=== PATIENT | male | born 1950 | race Caucasian/White ===

== ENCOUNTER 2022-09-01 07:59 | Outpatient (REF) | payer MEDICARE, SELFPAY ==
[2022-09-01 11:21] LABS: MANUAL DIFF FLAG NO
[2022-09-01 11:28] LABS: Basophils Absolute Auto 0.1 X10*3/uL (0.0-0.2); Eosinophils Percent Auto 11.8 % (0-4); Hematocrit 31.5 % (42.0-52.0); Hemoglobin 10.6 g/dl (14.0-18.0); Imm Gran Abs Auto 0.04 X10*3/uL (0.00-0.03); Imm Gran Pct Auto 0.5 % (0.0-0.4); Lymphocytes Absolute Auto 1.7 X10*3/uL (1.2-4.9); Lymphocytes Percent Auto 20.7 % (20-40); Mean Corpuscular HGB Conc 33.7 g/dl (31.0-36.0); Mean Corpuscular Hemoglobin 32.1 pg (27.0-33.0); Mean Corpuscular Volume 95.5 fL (80.0-98.0); Mean Platelet Volume 9.3 fL (9.4-12.4); Monocytes Absolute Auto 0.7 X10*3/uL (0.1-1.2); Monocytes Percent Auto 9.1 % (2-11); Neutrophils Absolute Auto 4.6 x10*3/uL (2.0-8.3); Neutrophils Percent Auto 56.9 % (45-73); Platelet Count 257 X10*3/uL (160-400); Red Cell Distribution Width 12.9 % (11.0-16.0); White Blood Count 8.2 X10*3/uL (4.8-10.8)
[2022-09-01 11:34] LABS: Appearance Urine Clear; Color Urine Yellow; Glucose Urine UA Negative (Negative); Leukocyte Esterase Urine Negative (Negative); Nitrite Urine Negative (Negative); PH 5.5 (5.0-9.0); Specific Gravity - Urine 1.015 (1.005-1.025); UMIC TRIGGER UA YES; Urine Blood Moderate (2+) (Negative); Urine Ketones Negative (Negative); Urine Protein Negative (Neg-Trace)
[2022-09-01 11:38] LABS: Bacteria Urine None Seen (None Seen); Hyaline Casts Urine 0-2 /LPF (0-2); Squamous Epithelial Cell Urine 0-2 /HPF (0-2); WBC Urine 0-5 /HPF (0-5)
[2022-09-01 11:42] LABS: Anion Gap 13 (12-20); Blood Urea Nitrogen 35 mg/dL (9-16); Calcium 9.4 mg/dL (8.4-10.2); Carbon Dioxide 26 mmol/L (22-29); Chloride 101 mmol/L (96-108); Estimated Glomerular Filt Rate 25; Potassium 4.9 mmol/L (3.3-5.1); Sodium 135 mmol/L (135-145); Uric Acid 5.4 mg/dL (3.4-7.0)
[2022-09-01 11:52] LABS: Creatinine Urine 104.54 mg/dL; Microalbum/Creatinine Ratio Ur 8.6 ug/mg cr
[2022-09-01 11:56] LABS: Creatinine Urine 105.47 mg/dL; Total Protein Urine Random 11 mg/dL (<12)
[2022-09-01 12:02] LABS: Vitamin D 25-OH Total 30.1 ng/mL (>30)
[2022-09-01 12:26] LABS: Alanine Aminotransferase 10 U/L (0-40); Alkaline Phosphatase 81 U/L (39-117); Anion Gap 14 (12-20); Aspartate Amino Transferase 12 U/L (5-37); Bilirubin Total 0.3 mg/dL (0.0-1.0); Blood Urea Nitrogen 34 mg/dL (9-16); Calcium 9.3 mg/dL (8.4-10.2); Carbon Dioxide 27 mmol/L (22-29); Chloride 102 mmol/L (96-108); Cholesterol 172 mg/dL; Estimated Glomerular Filt Rate 26; Glucose Fasting 107 mg/dL (60-99); HDL Cholesterol 61 mg/dL; LDL Cholesterol Calculated 96 mg/dl; Potassium 5.4 mmol/L (3.3-5.1); Prostate Specific Antigen Scr 2.36 ng/mL (<0.05-4.0); Sodium 138 mmol/L (135-145); TSH reflex Free T4 4.63 uIU/mL (0.32-4.0); Total Protein 6.8 g/dL (6.5-8.0); Triglycerides 78 mg/dL
[2022-09-01 12:39] LABS: Folate 17.5 ng/mL (> or = 4.0); Vitamin B12 646 pg/mL (200-900)
[2022-09-01 13:31] LABS: Free T4 (Free Thyroxine) 0.91 ng/dL (0.71-1.85)
[2022-09-02 15:13] LABS: Calcium (PTHI) 9.2 mg/dL (8.6-10.3); PTHI 47 pg/mL (16-77)
== END 2022-09-01 08:00 | disposition home or self-care (01) ==
LOC: HO.HMGCLDS 07:59
PROVIDERS: Absent Provider Student in an Organized Health Care Education/Training Program; PCP Family Medicine; Visit Provider Family Medicine
DX: Z00.00 Encounter for general adult medical examination without abnormal findings (principal); Z12.5 Encounter for screening for malignant neoplasm of prostate; I12.9 Hypertensive chronic kidney disease with stage 1 through stage 4 chronic kidney disease, or unspecified chronic kidney disease; N18.30 Chronic kidney disease, stage 3 unspecified
CPT/HCPCS: 36415; 80051; 80053; 80061; 81001; 81003; 82043; 82306; 82310; 82565; 82607; 82746; 83970; 84153; 84156; 84439; 84443; 84520; 84550; 85025

== ENCOUNTER 2022-09-26 12:05 | Outpatient (REF) | payer MEDICARE, SELFPAY ==
--- NOTE | ~2022-09-26 | XR_ITS ---
EXAMINATION: XR CHEST CLINICAL INFORMATION: Nicotine dependence. COMPARISON: None TECHNIQUE: 2 views of the chest were obtained. FINDINGS: Hyperexpanded lungs. No consolidation, edema, or effusion. No pneumothorax. The cardiomediastinal silhouette is within normal limits. No acute osseous abnormality. Partially visualized aortic stent graft in the abdomen. XR/XR chest 2V IMPRESSION: Hyperexpanded lungs with no acute pulmonary finding.
[2022-09-26 14:00] LABS: Urine Cytology See Pathology rpt
[2022-09-26 14:12] LABS: Appearance Urine Clear; Color Urine Yellow; Glucose Urine UA Negative (Negative); Leukocyte Esterase Urine Trace (Negative); Nitrite Urine Negative (Negative); PH 5.5 (5.0-9.0); UMIC TRIGGER UA YES; Urine Blood Moderate (2+) (Negative); Urine Ketones Negative (Negative); Urine Protein Trace mg/dL (Neg-Trace)
[2022-09-26 14:23] LABS: Bacteria Urine None Seen (None Seen); Hyaline Casts Urine 0-2 /LPF (0-2); RBC Urine 0-2 /HPF (0-2); Squamous Epithelial Cell Urine 0-2 /HPF (0-2); WBC Urine 0-5 /HPF (0-5)
== END 2022-09-26 12:06 | disposition home or self-care (01) ==
LOC: HO.HMGCX 12:05
PROVIDERS: Absent Provider Student in an Organized Health Care Education/Training Program; PCP Family Medicine; Visit Provider Family Medicine
DX: R31.29 Other microscopic hematuria (principal); F17.200 Nicotine dependence, unspecified, uncomplicated
CPT/HCPCS: 71046; 81001; 88112

== ENCOUNTER 2022-10-24 11:20 | Outpatient (REF) | payer MEDICARE, SELFPAY ==
[2022-10-24 14:12] LABS: Anion Gap 14 (12-20); Blood Urea Nitrogen 29 mg/dL (9-16); Calcium 9.3 mg/dL (8.4-10.2); Carbon Dioxide 27 mmol/L (22-29); Chloride 102 mmol/L (96-108); Estimated Glomerular Filt Rate 29; Glucose Random 119 mg/dL (60-115); Sodium 138 mmol/L (135-145)
[2022-10-24 14:31] LABS: Free T4 (Free Thyroxine) 0.97 ng/dL (0.71-1.85); Thyroid Stimulating Hormone 3.11 uIU/mL (0.32-4.0)
[2022-10-25 09:03] LABS: Triiodothyronine T3 Total 89 ng/dL (76-181)
== END 2022-10-24 11:21 | disposition home or self-care (01) ==
LOC: HO.HMGCLDS 11:20
PROVIDERS: PCP Family Medicine; Visit Provider Family Medicine
DX: Z00.00 Encounter for general adult medical examination without abnormal findings (principal); E03.9 Hypothyroidism, unspecified; R79.89 Other specified abnormal findings of blood chemistry
CPT/HCPCS: 36415; 80048; 84439; 84443; 84480

== ENCOUNTER 2022-11-04 12:32 | Outpatient (REF) | payer MEDICARE, SELFPAY ==
[2022-11-04 15:05] LABS: Appearance Urine Clear; Color Urine Yellow; Glucose Urine UA Negative (Negative); Leukocyte Esterase Urine Negative (Negative); Nitrite Urine Negative (Negative); UMIC TRIGGER UA YES; Urine Blood Small (1+) (Negative); Urine Ketones Negative (Negative); Urine Protein Negative (Neg-Trace)
[2022-11-04 15:15] LABS: Bacteria Urine None Seen (None Seen); Hyaline Casts Urine 0-2 /LPF (0-2); RBC Urine 0-2 /HPF (0-2); Squamous Epithelial Cell Urine 0-2 /HPF (0-2); WBC Urine 0-5 /HPF (0-5)
== END 2022-11-04 12:33 | disposition home or self-care (01) ==
LOC: HO.LAB 12:32
PROVIDERS: Visit Provider Family Medicine
DX: R31.9 Hematuria, unspecified (principal)
CPT/HCPCS: 81001; 81003; 87086

== ENCOUNTER 2022-11-13 10:27 | Outpatient (REF) | payer MEDICARE, SELFPAY ==
[2022-11-13 16:56] LABS: Urine Cytology See Pathology rpt
== END 2022-11-13 10:28 | disposition home or self-care (01) ==
LOC: HO.LAB 10:27
PROVIDERS: PCP Family Medicine; Visit Provider Nurse Practitioner Family
DX: R31.29 Other microscopic hematuria (principal); R89.6 Abnormal cytological findings in specimens from other organs, systems and tissues
CPT/HCPCS: 88112; 99202

== ENCOUNTER 2022-11-17 11:21 | Outpatient (REF) | payer MEDICARE, SELFPAY ==
[2022-11-17 14:40] LABS: Blood Urea Nitrogen 29 mg/dL (9-16); Estimated Glomerular Filt Rate 29
== END 2022-11-17 11:22 | disposition home or self-care (01) ==
LOC: HO.HMGCLDS 11:21
PROVIDERS: Visit Provider Nurse Practitioner Family
DX: R31.29 Other microscopic hematuria (principal)
CPT/HCPCS: 36415; 82565; 84520

== ENCOUNTER 2022-11-19 14:26 | Outpatient (REF) | payer MEDICARE, SELFPAY ==
[2022-11-21 15:06] LABS: H Pylori Breath Test Positive (Negative)
== END 2022-11-19 14:27 | disposition home or self-care (01) ==
LOC: CF 14:26
PROVIDERS: PCP Family Medicine; Visit Provider Nurse Practitioner Family
DX: Z01.818 Encounter for other preprocedural examination (principal); K21.9 Gastro-esophageal reflux disease without esophagitis; Z79.899 Other long term (current) drug therapy; Z11.0 Encounter for screening for intestinal infectious diseases
CPT/HCPCS: 36415; 83013; 99202

== ENCOUNTER 2022-11-21 08:29 | Outpatient (REF) | payer MEDICARE, SELFPAY ==
--- NOTE | ~2022-11-21 | US_ITS ---
EXAMINATION: US RETROPERITONEAL LIMITED (RENAL ONLY) CLINICAL INFORMATION: Renal atrophy. COMPARISON: None TECHNIQUE: Real-time imaging of the kidneys. FINDINGS: RIGHT KIDNEY: 6.1 x 2.8 x 4.2 cm (SAG x AP x TRV). The kidney is normal in size, contour, and echogenicity. Renal cortical thickness is normal. No calculi or focal parenchymal solid lesions. No hydronephrosis. At the upper pole, 1.9 cm, 0.8 cm and 1.4 cm anechoic, simple cysts are seen. At the interpolar aspect, a 4.0 cm anechoic, simple cyst is seen. LEFT KIDNEY: 12.0 x 6.0 x 5.8 cm (SAG x AP x TRV). The kidney is normal in size, contour, and echogenicity. Renal cortical thickness is normal. No calculi or focal parenchymal solid lesions. No hydronephrosis. At the upper pole, a 0.8 cm simple cyst is seen. At the interpolar aspect, 4.2 cm, 2.2 cm, 1.0 cm and 3.3 cm simple cysts are seen. At the lower pole, a 3.4 cm simple cyst is seen. US/US renal BI IMPRESSION: 1. There is right renal atrophy. 2. Multiple benign, simple bilateral renal cysts are seen, as detailed. These require no imaging follow-up.
--- NOTE | ~2022-11-21 | US_ITS ---
EXAMINATION: US OF KIDNEYS WITH RENAL ARTERY DOPPLER CLINICAL INFORMATION: Atrophy of right kidney. COMPARISON: None. TECHNIQUE: Ultrasound of the kidneys was performed along with color flow Doppler imaging and velocity measurements in the proximal mid and distal renal arteries. Aortic velocities were measured and renal/aortic ratios were calculated. Interlobar resistive indices were also measured. FINDINGS: The right kidney is small and atrophic measuring 6.1 x 2.8 x 4.2 cm with thinned echogenic renal cortex. The left kidney appears normal measuring 12.0 x 6.0 x 5.8 cm. No solid renal masses, renal stones or hydronephrosis is seen. Benign Bosniak class I simple cysts present in the left kidney. Velocity measurements in the proximal mid and distal renal arteries are normal with the exception of elevated velocities in the right proximal renal artery of 363 cm/s suggesting stenosis. Velocity in the aorta is 55 cm/s. Renal aortic ratio is abnormal at 6.6 on the right and normal at 1.1 on the left. Interlobar resistive indices were within normal limits. US/US renal doppler IMPRESSION: Small atrophic right kidney with elevated velocities in the proximal renal artery suggesting stenosis. CT angiography could always be performed for further evaluation if clinically indicated. A radionuclide renal scan may be useful for further evaluation initially to etl bi developer renal function.
== END 2022-11-21 08:30 | disposition home or self-care (01) ==
LOC: HO.HMGCX 08:29
PROVIDERS: PCP Family Medicine; Visit Provider Student in an Organized Health Care Education/Training Program
DX: N26.1 Atrophy of kidney (terminal) (principal)
CPT/HCPCS: 76775; 93975

== ENCOUNTER 2022-11-24 11:00 | Outpatient (RCR) | payer MEDICARE, SELFPAY ==
--- NOTE | 2022-11-17 14:42 | MHC.PT.EP ---
[facility] [place] Office [place] Office [place] Office [address] Catrina Roy [address] [phone] F: [phone] F: [phone] F: [phone] F: [phone] Physical Therapy Plan of Care Date of Evaluation: Date of Surgery: n/a Diagnosis: cervicalgia Assessment: Patient is a 72 year old male presenting to PT with complaints of pain in his neck. Pt reports onset of pain began about 2 years ago due to insidious onset. He presents today with impairments in pain, radicular sx, posture, neck ROM, DNF strength. Pt's current occupation is none, with baseline physical activities including ADLs, fishing. 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 Clinical presentation today is most consistent with signs and sx associated with neck pain with possible radicular component and pt will benefit from skilled PT 1 week x 6 weeks to address the following problems and impairments noted upon evaluation: pain, radicular sx, posture, neck ROM, DNF strength. These problems limit the patient with the following functional activities: ADLs, fishing. The prescribed treatment plan of care is medically necessary. Co-morbidities of currently undergoing work up for bladder cancer, 1 functioning kidney were identified and taken into considerations of plan of care. Pt was educated on HEP, role of PT, prognosis, POC. Frequency and Duration: The patient will be seen 1 x week x 6 weeks Short Term Goals: Pt will demonstrate centralization of sx in 3 weeks. Pt will demonstrate ability to perform chin tuck with good DNF recruitment in 3 weeks. Pt will demonstrate improved postural awareness by sitting with biomechanically correct posture without cues throughout session to improve overall postural function in 3 weeks. Mcfp Goals: Pt will demonstrate improved NDI score by 5% in 6 weeks for improved functional mobility. Pt will demonstrate ability to complete ADLs with less difficulty due to numbness in 6 weeks for return to PLOF. Treatment Plan: Modalities to reduce pain, spasms and effusion. Manual therapy to restore motion and function. Therapeutic exercise to improve strength and flexibility. Neuromuscular re-education for posture and balance. Therapeutic activities to return to functional activities of daily living. Electronically signed by: Lorie Delgado, PT, DPT, ATC Please sign and return to therapist. Thank you for your referral.
--- NOTE | 2022-11-24 11:13 | MHC.PT.DC ---
[facility] [place] Office [place] Office [place] Office [address] Catrina Roy [address] [phone] F: [phone] F: [phone] F: [phone] F: [phone] Physical Therapy Discharge Report Diagnosis: cervicalgia Date of Surgery: n/a Date of Evaluation: 11/17/22 Date of Discharge: 11/24/22 Treatments to Date: 1 Cancellations to Date: 0 No Shows to Date: 0 Discharge Status: Patient Elected to Stop Discharge Summary: Pt self d/c from skilled PT due to copay. Electronically signed by: Lorie Delgado, PT, DPT, ATC Please sign and return to therapist. Thank you for your referral.
== END 2022-11-24 11:13 | disposition home or self-care (01) ==
LOC: HO.PTCHIC 11:00
PROVIDERS: PCP Family Medicine; Visit Provider Family Medicine
DX: M54.2 Cervicalgia (principal)
CPT/HCPCS: 97110; 97161

== ENCOUNTER → 2022-12-03 10:28 | Outpatient (BNVA) | payer MEDICARE, SELFPAY | PROVIDERS: PCP Family Medicine; Visit Provider Orthopaedic Surgery | DX: G56.02 Carpal tunnel syndrome, left upper limb (principal); R20.0 Anesthesia of skin | CPT/HCPCS: 99202 ==

== ENCOUNTER 2022-12-04 12:59 | Outpatient (REF) | payer MEDICARE, SELFPAY ==
--- NOTE | ~2022-12-04 | CT_ITS ---
EXAMINATION: CT SCAN OF THE ABDOMEN AND PELVIS WITHOUT CONTRAST CLINICAL INFORMATION: Microscopic hematuria. COMPARISON: None available. TECHNIQUE: Multidetector CT volumetric acquisition of the abdomen and pelvis was performed without contrast The data set was reformatted in the sagittal and coronal planes and reviewed on an independent workstation. This CT examination was performed using dose optimization technique as appropriate, variously including the following: Automated exposure control Adjustment of MA and/or KV according to patient size(this includes techniques or standardized protocols for targeted exams where dose is matched to indication/reason for exam; extremities or head. Use of iterative reconstruction techniques. FINDINGS: Lung bases: There is emphysema with no acute process. Heart size is normal. LIVER, GALLBLADDER, BILIARY TREE: Liver normal size and attenuation. No focal cystic or solid mass or intra-or extrahepatic ductal dilatation. There are multiple small dependent radiopaque gallstones. PANCREAS: Normal. No ductal dilatation, mass, or surrounding stranding. SPLEEN: Normal size and appearance. Splenic vein patent. ADRENAL GLANDS AND KIDNEYS: Adrenal glands normal. The right kidney is smaller compared to left side. Left kidney measures 10.3 cm in length and right kidney measures 7.12 cm in length. There is no radiopaque calculi. There are bilateral renal cysts. There is no hydroureteronephrosis. BLADDER: The bladder is nondistended without any radiopaque calculi or wall thickening. BOWEL LOOPS: There is oral contrast enhanced scattered stool in the colon without distention. The small bowel loops are normal caliber. Appendix is not visualized. LYMPHOVASCULAR STRUCTURES: There is abdominal aortic aneurysm with aortoiliac graft stent. The left common iliac artery is dilated measuring 2.30 cm on coronal 45/5 and 2.5 cm on axial view image 49/3. BONES: No aggressive lytic or sclerotic process seen. There are degenerative disc changes with vacuum disc phenomena and spondylosis L2-L3, L3-L4, L4-L5 and L-/S1 disc levels. PELVIS: The prostate gland is mildly enlarged with central gland calcification. No free fluid seen. There are surgical william in the right pelvis likely related to vascular intervention. CT/CT kidney stone IMPRESSION: Cholelithiasis without wall thickening. Bilateral renal cysts without radiopaque calculi or hydroureteronephrosis. Small right kidney compared to left. Abdominal aortic aneurysm with aortoiliac graft stent in place. 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 Mild prostate enlargement with central gland calcification.
== END 2022-12-04 13:00 | disposition home or self-care (01) ==
LOC: HO.CT 12:59
PROVIDERS: PCP Family Medicine; Visit Provider Nurse Practitioner Family
DX: R31.29 Other microscopic hematuria (principal)
CPT/HCPCS: 74176

== ENCOUNTER → 2022-12-09 10:28 | Outpatient (BNVA) | payer MEDICARE, SELFPAY | PROVIDERS: PCP Family Medicine; Visit Provider Urology | DX: R31.29 Other microscopic hematuria (principal); R89.6 Abnormal cytological findings in specimens from other organs, systems and tissues | CPT/HCPCS: 52000; 99212 ==

== ENCOUNTER 2023-01-08 10:37 | Day surgery (SDC) | payer MEDICARE, SELFPAY ==
[2023-01-08 13:08] VITALS: BMI 21.7
[2023-01-08 13:09] VITALS: BP 123/77; PULSE 62; RESP 16; TEMP 36.9; O2SAT 98
--- NOTE | 2023-01-08 14:35 | PC.NURSE ---
Report given to Miriam Moyer RN in Pacu. Patient resting comfortably in pacu with call quintanilla.
[2023-01-08 16:35] VITALS: BP 143/58; PULSE 56; RESP 16; TEMP 36.9; O2SAT 99
--- NOTE | 2023-01-08 16:44 | MHC.SHP ---
Pre-Procedural Eval Section A Date of Service: 01/08/23 The patient is an INPATIENT: No Changes since office visit: No Cold of Flu in the past 2 weeks, No New Medical Problems, No Changes in Medication and No Patient answered all questions The History & Physical has been completed within 30 days and I have reviewed it.: Yes Section B Chief Complaint: Carpal tunnel syndrome, left upper limb Allergies: Allergies Allergy/AdvReac Type Severity Reaction Status Date / Time No Known Allergies Allergy Verified 12/09/22 10:52 Plan I have reviewed the history and physical and performed a pertinent physical examination on my patient. No changes have occurred unless specified. Time Spent With Patient Time: Total time managing care of this patient today ____ minutes.
--- NOTE | 2023-01-08 16:45 | P.OP_ITS ---
Operative Note Operative Note Date of Service: 01/08/23 Narrative: Preop diagnosis: 1. Left Carpal tunnel syndrome Postop diagnosis: same Procedure: 1. left Carpal tunnel release Surgeon: Virginia Hart MD Anesthesia: local block using 1% lidocaine with epinephrine Findings: Thickened transverse carpal ligament. EBL: Less than 5 mL Specimens: None Complications: None Disposition: Brought to recovery room in stable condition Plan: Follow-up for 10-14 days for wound check and suture removal Indications: The patient is 72 years old, with left carpal tunnel syndrome that has been unresponsive to nonoperative management. The risks and benefits o f operative treatment including but not limited to risk of damage to blood vessels, nerves, tendons, infection, persistent pain, persistent symptoms, or possible need for additional surgery were discussed with the patient and the patient wishes to proceed with surgery. Procedure: Once consent was obtained a local block was performed using a combination of 1% lidocaine with epinephrine. The patient was then brought back to the operating suite and placed on the operative table in supine position. The left upper extremity was prepped and draped in a standard surgical fashion. Once assured that we had a good block, a 2.0 cm longitudinal incision was made centered over the carpal tunnel. The incision was made through the skin to the subcutaneous tissues using a #15 blade. Dissection was made down to the level of the transverse carpal ligament with care being taken to protect the palmar cutaneous nerve. Once the transverse carpal ligament was clearly visualized, a longitudinal incision was made in the transverse carpal ligament 1st using a #15 blade, then using tenotomy scissors under direct visualization. Care was taken to look for and protect the motor branch of the median nerve when seen in this area. Once satisfied with our carpal tunnel release the wound was copiously irrigated with normal saline and hemostasis was obtained with a brief period of local pressure. The skin edges were reapproximated with some 5.0 nylon suture material and a sterile dressing was applied. The patient appears to have tolerated the procedure well and with no complications. All digits were well vascularized at the conclusion of the case.
== END 2023-01-08 16:50 | disposition home or self-care (01) ==
PROVIDERS: PCP Family Medicine; Visit Provider Orthopaedic Surgery
PROC: (CPT 64721; principal; 2023-01-08 14:00)
DX: G56.02 Carpal tunnel syndrome, left upper limb (principal); R20.0 Anesthesia of skin; R20.2 Paresthesia of skin; Z96.7 Presence of other bone and tendon implants; E78.00 Pure hypercholesterolemia, unspecified; I10 Essential (primary) hypertension; F17.210 Nicotine dependence, cigarettes, uncomplicated
CPT/HCPCS: 64721; J0171

== ENCOUNTER → 2023-01-21 14:08 | Outpatient (BNVA) | payer MEDICARE, SELFPAY | PROVIDERS: PCP Family Medicine; Visit Provider Orthopaedic Surgery | DX: G56.02 Carpal tunnel syndrome, left upper limb (principal); R20.0 Anesthesia of skin; R20.2 Paresthesia of skin | CPT/HCPCS: 99212 ==

== ENCOUNTER → 2023-01-27 09:35 | Outpatient (BNVA) | payer MEDICARE, SELFPAY | PROVIDERS: PCP Family Medicine; Visit Provider Nurse Practitioner Family | DX: Z12.11 Encounter for screening for malignant neoplasm of colon (principal); K21.9 Gastro-esophageal reflux disease without esophagitis; A04.8 Other specified bacterial intestinal infections | CPT/HCPCS: 99212 ==

== ENCOUNTER 2023-02-04 10:21 | Outpatient (REF) | payer MEDICARE, SELFPAY ==
--- NOTE | 2023-02-04 | EMG_ITS ---
Please see scanned EMG / Nerve Conduction Report. MTDD
== END 2023-02-04 10:22 | disposition home or self-care (01) ==
LOC: HO.NEURO 10:21
PROVIDERS: PCP Family Medicine; Visit Provider Orthopaedic Surgery
DX: R20.0 Anesthesia of skin (principal); R20.2 Paresthesia of skin
CPT/HCPCS: 95885; 95910

== ENCOUNTER 2023-02-17 12:16 | Outpatient (REF) | payer MEDICARE, SELFPAY ==
[2023-02-17 14:19] LABS: Anion Gap 13 (12-20); Blood Urea Nitrogen 27 mg/dL (9-16); Calcium 8.8 mg/dL (8.4-10.2); Carbon Dioxide 28 mmol/L (22-29); Chloride 103 mmol/L (96-108); Estimated Glomerular Filt Rate 30; Glucose Random 87 mg/dL (60-115); Potassium 4.8 mmol/L (3.3-5.1); Sodium 139 mmol/L (135-145)
[2023-02-17 14:20] LABS: Appearance Urine Clear; Color Urine Yellow; Glucose Urine UA Negative (Negative); Leukocyte Esterase Urine Negative (Negative); Nitrite Urine Negative (Negative); PH 5.5 (5.0-9.0); Specific Gravity - Urine 1.015 (1.005-1.025); UMIC TRIGGER UA YES; Urine Blood Moderate (2+) (Negative); Urine Ketones Negative (Negative); Urine Protein Negative (Neg-Trace)
[2023-02-17 14:34] LABS: Bacteria Urine None Seen (None Seen); Hyaline Casts Urine 0-2 /LPF (0-2); Squamous Epithelial Cell Urine 0-2 /HPF (0-2); WBC Urine 0-5 /HPF (0-5)
== END 2023-02-17 12:17 | disposition home or self-care (01) ==
LOC: HO.WFDLDS 12:16
PROVIDERS: Visit Provider Family Medicine
DX: Z00.00 Encounter for general adult medical examination without abnormal findings (principal); N18.9 Chronic kidney disease, unspecified
CPT/HCPCS: 36415; 80048; 81001

== ENCOUNTER → 2023-02-18 13:22 | Outpatient (BNVA) | payer MEDICARE, SELFPAY | PROVIDERS: PCP Family Medicine; Visit Provider Orthopaedic Surgery | DX: Z48.811 Encounter for surgical aftercare following surgery on the nervous system (principal); M54.2 Cervicalgia | CPT/HCPCS: 99212 ==

== ENCOUNTER 2023-03-04 08:07 | Day surgery (SDC) | payer MEDICARE, SELFPAY ==
--- NOTE | 2023-03-03 13:13 | P.CONAN_ITS ---
Documented by User: Eun Hung NP 03/03/23 13:18 HPI - Anesthesia Eval Consult details Narrative: 73yo M for Upper Endoscopy and Colonoscopy Follows nephro CKD St 3 - dx years ago with baseline Creat ~ 3. Last eval 09/2022 [facility] Active Problems Active Problems: All Active Problems (Updated 12/03/22 @ 11:34 by Yannick Rangel) Essential hypertension (Acute) Laboratory exam ordered as part of routine general medical examination (Acute) Chronic kidney disease (Acute) Aortic aneurysm (Acute) Anxiety (Acute) Nausea (Acute) Smoker (Acute) Abnormal lung sounds (Acute) Pressure sensation in both ears (Acute) Elevated fasting glucose (Acute) Anemia (Acute) Adult general medical exam (Acute) Screening for colon cancer (Acute) Screening for prostate cancer (Acute) Hematuria (Acute) GERD (gastroesophageal reflux disease) (Acute) Elevated TSH (Acute) Depression with anxiety (Acute) Weight loss (Acute) Emphysema lung (Acute) Elevated serum creatinine (Acute) Carpal tunnel syndrome (Acute) Cervicalgia (Acute) Shoulder pain (Acute) Renal failure (Acute) Hematuria, microscopic (Acute) Abnormal cytology (Acute) Carpal tunnel syndrome of left wrist (Acute) Numbness of right hand (Acute) Past Medical History Medical History Anxiety Cervicalgia Chronic kidney disease Depression GERD (gastroesophageal reflux disease) Hematuria High blood pressure High cholesterol Shoulder pain, bilateral Family History Family History Father Substance abuse Surgical History Surgical History H/O aortic aneurysm repair H/O bone graft History of carpal tunnel release Hx of colonoscopy Hx of cystoscopy Social History Social History Housing: House Patient Tobacco Use Status: Current everyday Tobacco user Tobacco use type: Cigarette Cigarettes Per Day: 15 e-Cigarette/Vaping Use: Never Used Second Hand Smoke Exposure: No Use of substances other than those prescribed or required for medical reasons: Yes Substance Use Frequency: Daily Are you DNR?: No Advance Directives: No Advance Directives Information Provided: Yes service: Yes Current occupational status: retired Current occupation: right hand Current occupational exposures/hazards: No Cognitive needs: No Hearing needs: No Vision needs: No Meds Allergies Allergy/AdvReac Type Severity Reaction Status Date / Time No Known Allergies Allergy Verified 03/04/23 08:57 Home Medications Medication Instructions Recorded Confirmed Last Taken Type aspirin 81 mg tablet,delayed 81 mg PO DAILY 07/02/22 03/04/23 02/25/23 History release (Adult Aspirin Regimen) sertraline 100 mg tablet 100 mg PO DAILY 11/13/22 03/04/23 03/04/23 06:30 History Exam Exam Date and Time: March 03, 2023 1313 Pertinent Lab Results Pertinent Lab Results: Laboratory Tests 09/01/22 02/17/23 08:15 12:20 WBC 8.2 Hgb 10.6 L Hct 31.5 L Plt Count 257 Sodium 139 Potassium 4.8 Chloride 103 Carbon Dioxide 28 BUN 27 H Creatinine 2.16 H Assessment and Plan Assessment Anesthesia Assessment: Chart Reviewed Documented by User: Janine Dominguez MD 03/04/23 09:55 [facility] Active Problems Active Problems: All Active Problems (Updated 12/03/22 @ 09:18 by Janine Dominguez MD) Essential hypertension (Acute) Laboratory exam ordered as part of routine general medical examination (Acute) Chronic kidney disease (Acute) Aortic aneurysm (Acute)- Repaired 2018 Anxiety (Acute) Nausea (Acute) Smoker (Acute) Abnormal lung sounds (Acute) Pressure sensation in both ears (Acute) Elevated fasting glucose (Acute) Anemia (Acute) Adult general medical exam (Acute) Screening for colon cancer (Acute) Screening for prostate cancer (Acute) Hematuria (Acute) GERD (gastroesophageal reflux disease) (Acute) Elevated TSH (Acute) Depression with anxiety (Acute) Weight loss (Acute) Emphysema lung (Acute) Elevated serum creatinine (Acute) Carpal tunnel syndrome (Acute) Cervicalgia (Acute) Shoulder pain (Acute) Renal failure (Acute) Hematuria, microscopic (Acute) Abnormal cytology (Acute) Carpal tunnel syndrome of left wrist (Acute) Numbness of right hand (Acute) Past Medical History Medical History Anxiety Cervicalgia Chronic kidney disease Depression GERD (gastroesophageal reflux disease) Hematuria High blood pressure High cholesterol Shoulder pain, bilateral Family History Family History Father Substance abuse Family history of problems with anesthesia: No Surgical History Surgical History H/O aortic aneurysm repair H/O bone graft History of carpal tunnel release Hx of colonoscopy Hx of cystoscopy History of Problems with Anesthesia: No Social History Social History Housing: House Patient Tobacco Use Status: Current everyday Tobacco user Tobacco use type: Cigarette Cigarettes Per Day: 15 e-Cigarette/Vaping Use: Never Used Second Hand Smoke Exposure: No Use of substances other than those prescribed or required for medical reasons: Yes Substance Use Frequency: Daily Are you DNR?: No Advance Directives: No Advance Directives Information Provided: Yes service: Yes Current occupational status: retired Current occupation: right hand Current occupational exposures/hazards: No Cognitive needs: No Hearing needs: No Vision needs: No Meds Allergies Allergy/AdvReac Type Severity Reaction Status Date / Time No Known Allergies Allergy Verified 03/04/23 08:57 Home Medications Medication Instructions Recorded Confirmed Last Taken Type aspirin 81 mg tablet,delayed 81 mg PO DAILY 07/02/22 03/04/23 02/25/23 History release (Adult Aspirin Regimen) sertraline 100 mg tablet 100 mg PO DAILY 11/13/22 03/04/23 03/04/23 06:30 History Exam Height,Weight and Vital Signs: Height 6 ft Weight 68.039 kg Vital Signs Temp Pulse Resp BP Pulse Ox O2 Del Method 03/04/23 09:04 97.9 F 54 16 141/65 H 99 Room Air Airway Mallampati Class: II TM Dist: >3cm Neck ROM: Full (But occasional pain) Denture: Upper Loose/Missing/Broken Teeth: Yes (Many missing teeth bottom. Denies broken or loose teeth) Heart: RRR Lungs: CTAB Assessment and Plan Assessment Anesthesia Assessment: Anesthesia Plan Discussed Final Anesthetic Review Family History of Problems with Anesthesia: No History of Problems with Anesthesia: No NPO: Yes ASA Class: III Final Preanesthetic Review: No Changes in Pt Med Stat, Meds/Allgs Chart Reviewed, Consent Obtained/Reviewed and Anes Risks/Benef Reviewed Patient Risk: Intermediate Procedure Risk: Low Assessment/Block/Sedation in SS: Assess/Block/Sedation-SS Anesthetic Plan Anesthetic Plan: MAC: Disposition: Standard PACU
[2023-03-04 08:35] VITALS: BMI 20.3
[2023-03-04 09:04] VITALS: BP 141/65; PULSE 54; RESP 16; TEMP 36.6; O2SAT 99
[2023-03-04] MEDS: Lactated Ringers 1,000 ML 100 ML IVCONT (09:13)
--- NOTE | 2023-03-04 09:18 | MHC.SHP ---
Pre-Procedural Eval Section A Date of Service: 03/04/23 Section B Chief Complaint: reflux disease,screening Relevant Family History (Specify if Yes): No Relevant Social History: Tobacco Use Present Medications: see Short Stay Collaborative assessment Medical History: Significant History (Anxiety Cervicalgia Chronic kidney disease Depression GERD (gastroesophageal reflux disease) Hematuria High blood pressure High cholesterol Shoulder pain, bilateral) History of Previous Operations: Relevant previous surgery/procedure and date(s) (H/O aortic aneurysm repair H/O bone graft History of carpal tunnel release Hx of colonoscopy Hx of cystoscopy) Allergies: Allergies Allergy/AdvReac Type Severity Reaction Status Date / Time No Known Allergies Allergy Verified 03/04/23 08:57 Review of Systems Sugical H&P ROS: Negative: Constitution, Cardiovascular, Respiratory, Neurological, Psychiatric, Hem-Onc, Allergic/Immunologic, Gastrointestinal, Genitourinary, Musculoskeletal, Integumentary, Endocrine and Eyes/Ears/Nose/Throat Exam Surgical H&P Exam: Normal: HEENT, Normal: Heart, Normal: Lungs, Normal: Extremities, Normal: Abdomen, Normal: Skin and Normal: Neurological Plan Diagnosis/Plan: Unchanged I have reviewed the history and physical and performed a pertinent physical examination on my patient. No changes have occurred unless specified. Time Spent With Patient Time: Total time managing care of this patient today ____ minutes.
--- NOTE | 2023-03-04 09:23 | W.PM.OPN ---
Operative Note Operative Note Date of Service: 03/04/23 Narrative: Operative Information Procedure Description: EGD, Colonoscopy Indication: GERD, screening colon Anesthesia: MAC FLEXIBLE TRANSORAL UPPER GASTROINTESTINAL ENDOSCOPY AND COLONOSCOPY PROCEDURE NOTE UPPER ENDOSCOPY Consent: Indications for the procedure and potential complications of bleeding, perforation, reaction to medications and missed diagnosis were discussed with the patient and informed consent was obtained. Instrument: Olympus GIF H 190 J mid size upper endoscope Monitoring: Vital signs and clinical assessment, continuous EKG monitoring, Pulse oximetry, Carbon Dioxide monitoring and blood pressure monitoring were done throughout the procedure. Procedure: The patient was placed in the left lateral decubitis position and pre-procedure medications were administered and a bite block was placed. The endoscope was inserted into the mouth and advanced under direct vision to the third part of duodenum. A careful inspection was made as the upper endoscope was withdrawn including a retroflexed examination of the proximal stomach; Findings and interventions are described below. Findings: Larynx:normal Esophagus: GE junction at 45 cm, diaphragm hiatus at 45 cm, irregular Z line with suspected short segment barretts, bx taken as well as from distal esophagus Stomach: atrophic mucosa with patchy erythema. Biopsies were obtained. Grade 2 flap valve on retroflexed examination of the cardia. Duodenum: Normal bulb and descending duodenum, Intervention: Biopsies as noted above COLONOSCOPY Instrument: Olympus variable stiffness pediatric scope 190L Colonoscopy Monitoring: Vital signs and clinical assessment, continuous EKG monitoring, Pulse oximetry, Carbon Dioxide monitoring and blood pressure monitoring were done throughout the procedure. Colon withdrawal time was 10 minutes. Procedure: The patient was placed in the left lateral decubitis position and pre-procedure medications were administered. After a digital rectal examination of the ano-rectum, the video colonoscope was inserted into the rectum and advanced through the colon to the cecum/TI. The colonoscope was slowly withdrawn in a retrograde panoramic fashion and the colon mucosa was carefully examined including a retroflexed view of the rectum. Findings and interventions are described below. Procedure Difficulty: moderate Findings: Terminal Ileum-normal Cecum:normal Ascending Colon: normal Transverse Colon -normal Descending Colon: Patchy diverticulosis Sigmoid Colon: moderate severe diverticulosis Rectum: Retroflexion with moderate sized internal hemorrhoids, grade I Anorectum - normal Colon preparation: [place] Bowel Preparation Scale Right colon; 1-2 Transverse colon: 2 Left colon; 2 (0 = Unprepared colon segment with mucosa not seen due to solid stool that cannot be cleared. 1 = Portion of mucosa of the colon segment seen, but other areas of the colon segment not well seen due to staining, residual stool and/or opaque liquid. 2 = Minor amount of residual staining, small fragments of stool and/or opaque liquid, but mucosa of colon segment seen well. 3 = Entire mucosa of colon segment seen well with no residual staining, small fragments of stool or opaque liquid) Impression and Post Procedure Diagnosis: Endoscopy Findings: gastritis possible short segment barretts Colonoscopy Findings: internal hemorrhoids diverticular disease Plan: Await Pathology results Repeat Colonoscopy in 5 years due to fair prep right side or earlier if clinically indicated High fiber diet leaflet avoid straining at stool, epsom salts and sitz bath, anusol supps or cream GERD precautions, if barretts pos then repeat EGD 5 yrs Above findings were reviewed with the patient and relevant handouts were provided if indicated.
[2023-03-04 10:08] VITALS: BP 97/63; PULSE 76; RESP 16; TEMP 36.2; O2SAT 98
[2023-03-04 10:23] VITALS: BP 119/62; PULSE 73; RESP 16; O2SAT 98
== END 2023-03-04 10:57 | disposition home or self-care (01) ==
PROVIDERS: PCP Family Medicine; Visit Provider Internal Medicine Gastroenterology
PROC: (CPT 43239; principal; 2023-03-04 10:10)
DX: Z12.11 Encounter for screening for malignant neoplasm of colon (principal); K57.30 Diverticulosis of large intestine without perforation or abscess without bleeding; K64.0 First degree hemorrhoids; K21.9 Gastro-esophageal reflux disease without esophagitis; K29.50 Unspecified chronic gastritis without bleeding; K44.9 Diaphragmatic hernia without obstruction or gangrene; I12.9 Hypertensive chronic kidney disease with stage 1 through stage 4 chronic kidney disease, or unspecified chronic kidney disease; N18.30 Chronic kidney disease, stage 3 unspecified; E78.00 Pure hypercholesterolemia, unspecified; F41.1 Generalized anxiety disorder; F32.A Depression, unspecified; F17.210 Nicotine dependence, cigarettes, uncomplicated; Z79.82 Long term (current) use of aspirin; Z79.899 Other long term (current) drug therapy
CPT/HCPCS: 43239; G0121; 88305; 88342; J2250

== ENCOUNTER → 2023-03-16 08:17 | Outpatient (BNVA) | payer MEDICARE, SELFPAY | PROVIDERS: PCP Family Medicine; Visit Provider Internal Medicine | DX: M50.90 Cervical disc disorder, unspecified, unspecified cervical region (principal) | CPT/HCPCS: 99202 ==

== ENCOUNTER 2023-03-18 10:38 | Outpatient (AMB) | payer MEDICARE, SELFPAY ==
[2023-03-18 11:07] VITALS: BP 108/60; PULSE 59; BMI 20.2
--- NOTE | 2023-03-18 11:07 | MHC.OFFVIS ---
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 May take sucralfate at bedtime. Discussed with patient avoiding dietary triggers and late night snacking. Staying upright for minimal 3 hours after meals discussed with patient. Will send patient for upper endoscopy to rule out esophagitis, gastritis, duodenitis, gastric or peptic ulcer, H pylori, Alejandre's Screening for colon cancer May proceed with colonoscopy. Patient denies any cardiac or respiratory symptoms. What to expect before during and after the procedure discussed with patient. Stressed the importance of good bowel prep. Clear liquid diet discussed with patient. Helicobacter pylori (H. pylori) Just recently treated with quadruple therapy for H pylori. Patient states that his symptoms are much improved. Will send for upper endoscopy to check for eradication. Will see patient after the procedure. Sooner on as needed basis. Patient is agreeable to plan of care and verbalizes understanding of instructions. He was given the opportunity to ask questions and all questions answered. ? Thank you for allowing me to participate in his care in his Plan Medications Refilled pantoprazole take one tablet half an hour before breakfast 40 mg PO DAILY 30 tabs 2RF K21.9 Discontinued metronidazole Discontinued Reason: Patient Completed Course 1,000 mg (2 x 500 mg) PO BID 56 tabs 0RF A04.8 bismuth subsalicylate Discontinued Reason: Patient Completed Course 2 tabs PO QID 14 days 112 tabs 0RF A04.8 tetracycline Discontinued Reason: Patient Completed Course 1,000 mg (2 x 500 mg) PO Q12H 56 caps 0RF A04.8 COLONOSCOPY Findings: Larynx:normal Esophagus: GE junction at 45? cm, diaphragm hiatus at 45 cm, irregular Z line with suspected short segment barretts, bx taken as well as from distal esophagus Stomach: atrophic mucosa with patchy erythema. Biopsies were obtained. Grade 2 flap valve on retroflexed examination of the cardia. Duodenum: Normal bulb and descending duodenum, Intervention: Biopsies as noted above COLONOSCOPY Instrument: Olympus variable stiffness pediatric scope 190L Colonoscopy Monitoring: Vital signs and clinical assessment, continuous EKG monitoring, Pulse oximetry, Carbon Dioxide monitoring and blood pressure monitoring were done throughout the procedure. Findings and interventions are described below. Procedure Difficulty: moderate Findings: Terminal Ileum-normal Cecum:normal Ascending Colon: normal Transverse Colon -normal Descending Colon: Patchy diverticulosis Sigmoid Colon: moderate severe diverticulosis Rectum: Retroflexion with moderate sized internal hemorrhoids, grade I Anorectum - normal Colon preparation: [place] Bowel Preparation Scale Right colon; 1-2 Transverse colon: 2 Left colon; 2 (0 = Unprepared colon segment with mucosa not seen due to solid stool that cannot be cleared. 1 = Portion of mucosa of the colon segment seen, but other areas of the colon segment not well seen due to staining, residual stool and/or opaque liquid. 2 = Minor amount of residual staining, small fragments of stool and/or opaque liquid, but mucosa of colon segment seen well. 3 = Entire mucosa of colon segment seen well with no residual staining, small fragments of stool or opaque liquid) Impression and Post Procedure Diagnosis: Endoscopy Findings: gastritis possible short segment barretts Colonoscopy Findings: internal hemorrhoids diverticular disease Plan: Await Pathology results Repeat Colonoscopy in 5 years due to fair prep right side or earlier if clinically indicated High fiber diet leaflet avoid straining at stool, epsom salts and sitz bath, anusol supps or cream GERD precautions, if barretts pos then repeat EGD 5 yrs PATHOLOGY RESULTS Diagnosis A.? Stomach, biopsy:? Gastric body mucosa with focal lamina propria hemorrhage, minimal chronic inactive inflammation, and features suggesting proton pump inhibitor effect, and one minute fragment of small bowel type mucosa (intestinal metaplasia of gastric mucosa versus duodenal mucosa); negative for H pylori and dysplasia. B.? Gastroesophageal junction, biopsy:? Squamocolumnar mucosa with mild chronic inflammation; negative for intestinal metaplasia and dysplasia.? C.? Esophagus, distal, biopsy:? Squamous mucosa with no specific change; no columnar mucosa present.? TODAY'S VISIT Patient is here today for follow-up and to discuss upper endoscopy and colonoscopy results. Patient denies any ill effects from the prep, anesthesia procedure itself. Patient was found to have Alejandre's and mild inflammation at GE junction and esophagus. Diverticular disease and internal hemorrhoids found. Patient had however suboptimal prep and will need to return for colorectal screening in 5 years. Patient denies any GI concerning symptoms today. States that he is feeling well. States that he is taking pantoprazole daily in his symptoms of acid reflux are suppressed. Denies is [employer] a, dysphagia or odynophagia. Denies melena, hematochezia, unintentional weight loss or ribbon like stools. [facility] Medical History (Updated 04/06/23 @ 20:22 by Tsering Noel [facility]) Anxiety Cervicalgia Chronic kidney disease Depression Diverticulosis GERD (gastroesophageal reflux disease) Hematuria High blood pressure High cholesterol Shoulder pain, bilateral Surgical History H/O aortic aneurysm repair H/O bone graft History of carpal tunnel release History of esophagogastroduodenoscopy (EGD) Hx of colonoscopy Hx of cystoscopy Family History Father Substance abuse Social History Housing: House Patient Tobacco Use Status: Current everyday Tobacco user Tobacco use type: Cigarette Cigarettes Per Day: 15 e-Cigarette/Vaping Use: Never Used Second Hand Smoke Exposure: No service: Yes Current occupational status: retired Current occupation: right hand Current occupational exposures/hazards: No Cognitive needs: No Hearing needs: No Vision needs: No Review of Systems Const Denies weight gain and Denies weight loss ENT Reports no additional complaints, Denies dysphagia and Denies odynophagia Card Reports no additional complaints Resp Reports no additional complaints GI Denies abdominal pain, Denies belching, Denies melena, Denies bloating, Denies change in bowel habits, Denies dysphagia, Denies excessive flatus, Denies dyspepsia, Denies heartburn, Denies diarrhea, Denies loose stools, Denies nausea, Denies odynophagia and Denies vomiting Reports no additional complaints Musc Reports no additional complaints Neuro Reports no additional complaints Psych Reports no additional complaints Endo Reports no additional complaints Physical Exam Vital Signs: Last Vital Signs Pulse 59 03/18/23 11:07 BP 108/60 03/18/23 11:07 BMI result Body Mass Index 20.2 Const General: healthy appearing, no acute distress and well developed Nutritional Appearance: well nourished Orientation/consciousness: patient oriented x3 HEENT Head: Yes normal to inspection, Yes normocephalic and Yes atraumatic Face and sinus: Yes normal facial exam Mouth: Normal oral and palatal mucosa present Throat: Yes posterior oropharynx normal, Yes tonsils normal and Yes uvula midline Eyes General: appearance normal, both eyes and all related structures Neck Neck: Yes normal visual inspection, Yes full ROM and Yes trachea midline Thyroid: Thyroid normal Resp Effort & Inspection: normal respiratory effort, able to speak in complete sentences, no tracheal deviation and symmetric chest movement Auscultation: clear to auscultation bilaterally Cardio Rate: regular rate Heart sounds: S1 normal heart sound present and S2 normal heart sound present GI Inspection: Yes normal to inspection and No distended Palpation (GI): Soft to palpation, not firm, nontender and No hepatosplenomegaly present Auscultation: normal bowel sounds General: Yes no CVA tenderness Back/Spine/Pelvis Back: no CVA tenderness Skin General skin exam: elasticity normal, turgor normal and dry skin Neuro General: patient oriented x3 Psych Appearance: grossly normal Mental Status: mental status grossly normal Speech and movement: Normal speech and movement present Affect: normal affect Thought process: Normal thought process present Assessment & Plan Assessment & Plan (1) GERD (gastroesophageal reflux disease): Code(s): K21.9 - Gastro-esophageal reflux disease without esophagitis Qualifiers: Esophagitis presence: esophagitis presence not specified Qualified Code(s): K21.9 - Gastro-esophageal reflux disease without esophagitis Plan: Continue pantoprazole daily. Discussed with patient avoiding dietary triggers and late and snacking. Staying upright for minimum 3 hours after meals discussed with patient. (2) Status post colonoscopy: Code(s): Z98.890 - Other specified postprocedural states Plan: Colorectal screening in 5 years due to suboptimal prep no polyps found. Diverticulosis and internal polyps found. (3) Diverticulosis: Code(s): K57.90 - Diverticulosis of intestine, part unspecified, without perforation or abscess without bleeding Plan: High-fiber diet discussed with patient. List of food high in fiber given to patient. I will see patient in 1 year, sooner on as needed basis. Patient is agreeable to this plan and verbalizes understanding of instructions. He was given the opportunity to ask questions and all questions answered. Thank you for allowing me to participate in his care Medications: Refilled pantoprazole take one tablet half an hour before breakfast 40 mg PO DAILY 90 tabs 3RF K21.9 - Gastro-esophageal reflux disease without esophagitis Coding Level of Care Code Est Pt Level 3 (61196) Diagnoses GERD (gastroesophageal reflux disease) K21.9 Esophagitis presence: esophagitis presence not specified Status post colonoscopy Z98.890 Diverticulosis K57.90 Time Spent (min) 30 Comment 20 minutes spent with patient and additional 10 minutes spent reviewing her records
== END 2023-03-18 11:46 | disposition home or self-care (01) ==
PROVIDERS: PCP Family Medicine; Visit Provider Nurse Practitioner Family
DX: K21.9 Gastro-esophageal reflux disease without esophagitis (principal); Z98.890 Other specified postprocedural states; K57.90 Diverticulosis of intestine, part unspecified, without perforation or abscess without bleeding
CPT/HCPCS: 99213

== ENCOUNTER → 2023-03-18 10:38 | Outpatient (BNVA) | payer MEDICARE, SELFPAY | PROVIDERS: PCP Family Medicine; Visit Provider Nurse Practitioner Family | DX: K21.9 Gastro-esophageal reflux disease without esophagitis (principal); K57.90 Diverticulosis of intestine, part unspecified, without perforation or abscess without bleeding; Z98.890 Other specified postprocedural states | CPT/HCPCS: 99212 ==

== ENCOUNTER 2023-05-05 11:13 | Outpatient (AMB) | payer MEDICARE, SELFPAY ==
--- NOTE | 2023-05-05 11:17 | MHC.PC.OV ---
Vital Signs 05/05/23 11:19 Height 6 ft Weight 155 lb 8 oz BMI 21.1 BP 106/70 Blood Pressure Location Rt brachial Position Sitting Respiration 12 Pulse 74 Temp 98 F Temp Source Temporal Artery Scan Pulse Oximetry (%) 99 Oxygen Delivery Method Room Air Intake Visit Reasons: f/u chronic conditions Intake Note: Patient states that he hasn't seen anyone about his stage 4 kidney disease in about a year and would like to check on his kidneys. Patient states in this past year he has had allot of different procedures done to different parts of body. Patient states that his script for Sertraline had ran out of refills and he would like to know if he needs a new script or not. Patient also states he has been a little off balance lately sometimes. 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 Blood pressure today 106/70. He is on enalapril 10mg daily. Pt had questions about his sertraline. He questions whether or not he still needs it - he notes he feels his anger more controlled but reports that he is currently undergoing a divorce. He states he does have a therapist. [facility] Medical History Anxiety Cervicalgia Chronic kidney disease Depression Diverticulosis GERD (gastroesophageal reflux disease) Hematuria High blood pressure High cholesterol Shoulder pain, bilateral Surgical History H/O aortic aneurysm repair H/O bone graft History of carpal tunnel release History of esophagogastroduodenoscopy (EGD) Hx of colonoscopy Hx of cystoscopy Family History Father Substance abuse Social History Housing: House Patient Tobacco Use Status: Current everyday Tobacco user Tobacco use type: Cigarette Cigarettes Per Day: 15 e-Cigarette/Vaping Use: Never Used Second Hand Smoke Exposure: No service: Yes Current occupational status: retired Current occupation: right hand Current occupational exposures/hazards: No Cognitive needs: No Hearing needs: No Vision needs: No Questionnaire Thrive Questionnaire Date Thrive assessed: 11/04/22 RODRÍGUEZ-7 AMB Questionnaire RODRÍGUEZ-7 Date RODRÍGUEZ - 7 assessed: 11/04/22 Source: Developed by Drs. Emmanuel Stafford, Demi Lozano, Lavelle Kerr and colleagues, with an educational emy from [employer]. Review of Systems Const Denies chills, Denies fatigue, Denies fever(s), Denies headache(s) and Denies weakness ENT Denies dizziness and Denies headache(s) Card Denies chest pain, Denies lightheadedness, Denies dyspnea and Denies other (Palpitations) Resp Denies cough, Denies dyspnea, Denies wheezing and Denies other ( shortness of breath) Musc Denies numbness and Denies tingling Neuro Denies dizziness, Denies headache(s), Denies numbness, Denies tingling, Denies paresthesias and Denies weakness Psych Denies anxiety and Denies depression Endo Denies fatigue Aller/Immun Denies wheezing Physical exam (Primary Care) Vital Signs: Last Vital Signs Temp 98 F 05/05/23 11:19 Pulse 74 05/05/23 11:19 Resp 12 05/05/23 11:19 BP 106/70 05/05/23 11:19 Pulse Ox 99 05/05/23 11:19 Oxygen Delivery Method Room Air 05/05/23 11:19 BMI result Body Mass Index 21.1 Tobacco/Smoking Status: Tobacco use Status Tobacco use date assessed 09/30/22 05/05/23 11:18 Patient Tobacco Use Status Current everyday Tobacco 05/05/23 11:18 Tobacco use type Cigarette 05/05/23 11:18 e-Cigarette/Vaping Use Never Used 05/05/23 11:18 Thrive Assessment: Date of Thrive Assessment Date Thrive assessed 11/04/22 05/05/23 11:18 Const General: no acute distress and well developed Nutritional Appearance: well nourished Orientation/consciousness: patient oriented x3 HENMT Head: Yes normocephalic and Yes atraumatic Eyes General: appearance normal, both eyes and all related structures Pupils: Equal, round and reactive pupils present EOM: EOMs intact bilaterally Resp Effort & Inspection: normal respiratory effort Auscultation: clear to auscultation bilaterally Cardio Rate: regular rate Rhythm: regular rhythm Heart sounds: S1 normal heart sound present, S2 normal heart sound present, no gallops, no murmurs and no rubs Neuro General: patient oriented x3 and gait normal Cranial nerves: Yes Equal, round and reactive pupils present Psych Other: Depressed affect and pt becomes tearful when talking about it Assessment and Plan Assessment & Plan (1) Essential hypertension: Code(s): I10 - Essential (primary) hypertension Plan: Blood pressures have been a little low in the office. I have decreased his enalapril from 10 mg daily to 7.5 mg daily. Would like to keep him on some of this medication for kidney protective properties (2) Chronic kidney disease: Code(s): N18.9 - Chronic kidney disease, unspecified Plan: Patient had seen at Nephrology once but was advised to follow-up in 3 months and has not done so. Referred back to Nephrology (3) Acute adjustment disorder: Code(s): F43.20 - Adjustment disorder, unspecified Plan: History of sertraline use and anxiety/depression. Undergoing a divorce from his and has court date arrange now. Became emotional in the office. Likely some acute adjustment disorder and worsening of depression He has a therapist and I encouraged him to follow-up with therapist Will send script for sertraline 50 mg daily and he can discuss with his therapist whether he wants to start this or not. Will follow-up in 1 month Orders: Referrals Nephrology Referral N18.9 - Chronic kidney disease, unspecified Medications: Changed From sertraline 100 mg PO DAILY To sertraline 50 mg PO DAILY 30 tabs 2RF 30 days From enalapril maleate 10 mg PO DAILY 90 tabs 3RF 90 days To enalapril maleate 7.5 mg (1.5 x 5 mg) PO DAILY 135 tabs 3RF 90 days Coding Level of Care Code Est Pt Level 4 (34575) Diagnoses Essential hypertension I10 Chronic kidney disease N18.9 Acute adjustment disorder F43.20
[2023-05-05 11:19] VITALS: BP 106/70; PULSE 74; RESP 12; TEMP 36.6; O2SAT 99; BMI 21.1
== END 2023-05-05 12:08 | disposition home or self-care (01) ==
PROVIDERS: Visit Provider Family Medicine
DX: I12.9 Hypertensive chronic kidney disease with stage 1 through stage 4 chronic kidney disease, or unspecified chronic kidney disease (principal); N18.9 Chronic kidney disease, unspecified; F43.20 Adjustment disorder, unspecified
CPT/HCPCS: 99214

== ENCOUNTER 2023-05-21 10:13 | Outpatient (REF) | payer MEDICARE, SELFPAY ==
--- NOTE | ~2023-05-21 | MR_ITS ---
MR CERVICAL SPINE WITHOUT CONTRAST CLINICAL INFORMATION: Cervical disc disorder. COMPARISON: None available. TECHNIQUE: MRI of the cervical spine was obtained using routine sequences without contrast. FINDINGS: There is mild anterior subluxation of C2 on C3. There is retrosubluxation of C3 on C4 and C4 on C5. There is moderate to severe disc volume loss at C3-C4, C4-C5, C5-C6, and C6-C7. The vertebral body heights are maintained. Modic type I endplate signal changes at C3-C4, C4-C5, and C6-C7. There is bone marrow edema within the right C2-C3 facets that is most likely degenerative/inflammatory. No additional bone marrow edema. No acute fractures. Craniocervical junction is unremarkable. Partially imaged intracranial compartment is unremarkable. Cervical arterial flow voids are preserved. There are no significant extraspinal soft tissue findings. C2-C3: Mild anterior subluxation. Disc osteophyte and ligamentum flavum thickening mildly narrow the central canal. Uncovertebral joint spurring and facet arthropathy result in mild to moderate bilateral foraminal encroachment. C3-C4: Retrosubluxation. Broad-based central disc protrusion and ligamentum flavum thickening result in severe central canal stenosis and severe compression of the cervical spinal cord. Intramedullary T2 signal changes within the cord at this level as the sequela of compressive myelopathy. Advanced uncovertebral joint hypertrophy and hypertrophic facet arthropathy result in severe left foraminal stenosis. C4-C5: Retrosubluxation. A central disc protrusion and ligamentum flavum thickening result in moderate to severe central canal stenosis and significant mass effect on the cord. No definite cord signal changes at this level. Advanced uncovertebral joint hypertrophy and hypertrophic facet arthropathy result in severe left and moderate right foraminal stenosis. C5-C6: Disc osteophyte and ligamentum flavum thickening result in moderate central canal stenosis and flattening of the cord. Advanced uncovertebral joint hypertrophy and hypertrophic facet arthropathy result in severe right and moderate left foraminal stenosis. C6-C7: Disc osteophyte and ligamentum flavum thickening result in moderate central canal stenosis and flattening of the cervical cord. Advanced uncovertebral joint hypertrophy and hypertrophic facet arthropathy result in severe bilateral foraminal stenosis. C7-T1: Shallow disc protrusion and ligamentum flavum thickening mildly narrow the central canal. Uncovertebral joint spurring and facet arthropathy result in moderate left and mild right foraminal stenosis. MR/MR cervical spine wo con IMPRESSION: - At C3-C4, retrosubluxation and advanced multifactorial degenerative changes result in severe central canal stenosis, severe compression of the cervical spinal cord, and severe left foraminal stenosis. Intramedullary T2 signal changes within the cord at this level as the sequela of compressive myelopathy. Neurosurgical consultation advised. - At C4-C5, advanced multifactorial degenerative changes result in moderate to severe central canal stenosis, significant mass effect on the cervical cord, as well as severe left and moderate right foraminal stenosis. No definite cord signal changes at this level. - At C5-C6 and at C6-C7, advanced multifactorial degenerative changes result in moderate central canal stenosis, flattening of the cervical cord, and severe bilateral foraminal stenosis at both of these levels. - There is bone marrow edema within the right C2-C3 facets that is most likely degenerative/inflammatory. Modic type I endplate signal changes at C3-C4, C4-C5, and C6-C7. These findings were discussed with Kathy Silva NP at 11:18 AM on 05/21/2023.
== END 2023-05-21 10:14 | disposition home or self-care (01) ==
LOC: HO.MRI 10:13
PROVIDERS: PCP Family Medicine; Visit Provider Internal Medicine
DX: M50.90 Cervical disc disorder, unspecified, unspecified cervical region (principal)
CPT/HCPCS: 72141

== ENCOUNTER 2023-05-22 14:31 | Outpatient (AMB) | payer MEDICARE, SELFPAY ==
--- NOTE | 2023-05-22 15:02 | A.SPINEOV_ITS ---
Intake Intake Visit Reasons: C3-4 Cord Comp. Intake Note: Mr. Connell is here today re: C/Spine cord compression. 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 This is a 73-year-old gentleman who has had progressive symptoms of bilateral arm numbness left greater than right, weakness of his left hand over the last few months progressively getting worse. He underwent decompression of the median nerve with Dr Hart our hand specialist he had no improvement in his symptoms. Because of neck pain, he was sent up to Dr. Tse who ordered a cervical MRI showing severe stenosis at C3-4 and C4-5. The patient was sent urgently down to us. He denies any gait instability or incontinence. He has been having difficulty with fine motor movements of his hands. PMH: The patient is well known to the [facility], he has a history of hyper tension, he also has a history of chronic kidney disease which she tells me is a combination of chronic ibuprofen use years ago and he believes he also has blockage to 1 of his arteries of his kidneys. He takes baby aspirin for that. He has a history of an aortic aneurysm repair, that has been stable without any significant change, he is followed in [place]. He had carpal tunnel release. History of GERD, diverticulosis, anxiety, lifelong smoker, COPD but he is not taking any inhalers Social hx: He smokes about half pack a day Medications: Enalapril, atorvastatin, baby aspirin, sertraline, pantoprazole Allergies: None Physical exam: He has bilateral hand weakness which I would rate as 4-5, rest of his upper extremity strength is normal, lower extremity strength is normal. Diffusely hyperreflexic with positive Staci sign on the left clonus in both ankles Imaging review: Cervical MRI done at [facility] shows multilevel degenerative disc disease, he has a large posterior disc bulge at C3-4 with severe central canal stenosis and cord signal change. At C4-5 there is also severe central canal stenosis and borderline cord signal change. He has moderate stenosis at C5-6 and C6-7 but no cord signal change seen there. Impression: 73-year-old gentleman who presents with progressive cervical myelopathy in the setting of neck pain and bilateral arm numbness and bilateral hand weakness left greater than right with signs of hyperreflexia on his exam consistent with his MRI showing severe spinal cord compression at C3-4 and C4-5. I am concerned about the progression of this gentleman symptoms and and I am going to speak with Dr. Recio about getting him in urgently for ACDF C3-4 and C4-5. The patient understands that the goal of surgery would not be to reverse the symptoms, but to halt the progression and hopefully he will see some improvement in time. Pt was given risk and benefits of surgery including but not limited to infection, hematoma , nerve injury,durotomy, weakness,bowel/bladder injury, persistent pain, persistent neurological deficits, vocal hoarseness, injury to the vessels of the neck, esophagus, dysphagia as well as the option to continue with conservative treatment and patient wishes to proceed with surgery. Pt is aware they should stop their motrin, aspirin 7 days prior to surgery. All questions were answered to the best of our ability. If there is anything about this patients medical history that we have overlooked or concerns you have about us proceeding with surgery we would appreciate any input you can offer. Thank you for allowing us to care for your patient. The total time spent with this visit with this patient was 45 minutes reviewing history, physical exam, cervical spine imaging review, and implementation of treatment plan or further diagnostic testing Tashi Recio MD,PhD [facility] Coding Level of Care Code New Pt Level 4 (54851) Diagnoses Cervical spinal cord compression G95.20
== END 2023-05-22 16:31 | disposition home or self-care (01) ==
PROVIDERS: PCP Family Medicine; Referring Provider Internal Medicine; Visit Provider Physician Assistant
DX: G95.20 Unspecified cord compression (principal)
CPT/HCPCS: 99204

== ENCOUNTER → 2023-05-22 14:31 | Outpatient (BNVA) | payer MEDICARE, SELFPAY | PROVIDERS: PCP Family Medicine; Visit Provider Physician Assistant | DX: G95.20 Unspecified cord compression (principal) | CPT/HCPCS: 99202 ==

== ENCOUNTER 2023-05-27 11:27 | Day surgery (SDC) | payer MEDICARE, SELFPAY ==
--- NOTE | 2023-05-26 13:17 | HO.ANESPROP2 ---
Documented by User: Eun Hung NP 05/26/23 13:21 HPI - Anesthesia Eval Consult details Narrative: 73yo M for C3-4, C4-5 Ant Cerv Discectomy w/ fusion (Late add on. Not seen in PAT) s/p EGD and [place] 02/2023 with MAC CKD. Follows renal. Stable at 04/2023. BP wnl. PMFSH Active Problems Active Problems: All Active Problems (Updated 05/21/23 @ 11:37 by Kathy Silva, RADIO PROGRAM DIRECTOR, [employer]) Cervical spinal cord compression (Acute) Acute adjustment disorder (Acute) Diverticulosis (Acute) Cervical disc disease (Acute) Essential hypertension (Acute) Laboratory exam ordered as part of routine general medical examination (Acute) Chronic kidney disease (Acute) Aortic aneurysm (Acute) Anxiety (Acute) Nausea (Acute) Smoker (Acute) Abnormal lung sounds (Acute) Pressure sensation in both ears (Acute) Elevated fasting glucose (Acute) Anemia (Acute) Adult general medical exam (Acute) Screening for colon cancer (Acute) Screening for prostate cancer (Acute) Hematuria (Acute) GERD (gastroesophageal reflux disease) (Acute) Elevated TSH (Acute) Depression with anxiety (Acute) Weight loss (Acute) Emphysema lung (Acute) Elevated serum creatinine (Acute) Carpal tunnel syndrome (Acute) Cervicalgia (Acute) Shoulder pain (Acute) Renal failure (Acute) Hematuria, microscopic (Acute) Abnormal cytology (Acute) Carpal tunnel syndrome of left wrist (Acute) Numbness of right hand (Acute) Past Medical History Medical History (Updated 05/26/23 @ 13:23 by Kaila Hall RN) Anxiety Arthritis Back pain Cervicalgia Chronic kidney disease Depression Diverticulosis GERD (gastroesophageal reflux disease) Hematuria High blood pressure High cholesterol Shoulder pain, bilateral Family History Family History Father Substance abuse Family history of problems with anesthesia: No Surgical History Surgical History (Updated 05/26/23 @ 13:28 by Kaila Hall RN) H/O aortic aneurysm repair H/O bone graft History of carpal tunnel release History of esophagogastroduodenoscopy (EGD) Hx of colonoscopy Hx of cystoscopy History of Problems with Anesthesia: No Social History Social History Housing: House Are you a primary resident care director to a significant other at home: No Do you presently have visiting nurse or other home services: No Patient Tobacco Use Status: Current everyday Tobacco user Tobacco use type: Cigarette Cigarette Packs Per Day: 1 Cigarettes Per Day: 20.0 Years Smoked: 50 e-Cigarette/Vaping Use: Never Used Second Hand Smoke Exposure: No Use of substances other than those prescribed or required for medical reasons: Yes Substance Use Frequency: Daily Have you been hit, kicked, punched, or otherwise hurt by someone within the past year? If so, by whom?: No Advance Directives: No Advance Directives Information Provided: Yes Advance Directives on File: No Recently lost weight without trying: Yes How much weight loss: 34pounds or more Eating poorly because of decreased appetite: No Nutrition screen score: 6 Nutrition Risks: No Nutritional Risk Poor oral hygiene: Yes (upper full denture) service: Yes Current occupational status: retired Current occupation: right hand Current occupational exposures/hazards: No Cognitive needs: No Hearing needs: No Vision needs: No Meds Allergies Allergy/AdvReac Type Severity Reaction Status Date / Time No Known Allergies Allergy Verified 05/05/23 11:39 Home Medications Medication Instructions Recorded Confirmed Last Taken Type aspirin 81 mg tablet,delayed 81 mg PO DAILY 07/02/22 05/26/23 02/25/23 History release (Adult Aspirin Regimen) Exam Exam Date and Time: May 26, 2023 1317 Assessment and Plan Assessment Anesthesia Assessment: Chart Reviewed Final Anesthetic Review Family History of Problems with Anesthesia: No History of Problems with Anesthesia: No Documented by User: Tenisha Moreno MD 05/27/23 14:35 [facility] Past Medical History Medical History (Updated 05/26/23 @ 13:23 by Kaila Hall RN) Anxiety Arthritis Back pain Cervicalgia Chronic kidney disease Depression Diverticulosis GERD (gastroesophageal reflux disease) Hematuria High blood pressure High cholesterol Shoulder pain, bilateral Family History Family History Father Substance abuse Surgical History Surgical History (Updated 05/26/23 @ 13:28 by Kaila Hall RN) H/O aortic aneurysm repair H/O bone graft History of carpal tunnel release History of esophagogastroduodenoscopy (EGD) Hx of colonoscopy Hx of cystoscopy Social History Social History Housing: House Are you a primary resident care director to a significant other at home: No Do you presently have visiting nurse or other home services: No Patient Tobacco Use Status: Current everyday Tobacco user Tobacco use type: Cigarette Cigarette Packs Per Day: 1 Cigarettes Per Day: 20.0 Years Smoked: 50 e-Cigarette/Vaping Use: Never Used Second Hand Smoke Exposure: No Use of substances other than those prescribed or required for medical reasons: Yes Substance Use Frequency: Daily Have you been hit, kicked, punched, or otherwise hurt by someone within the past year? If so, by whom?: No Advance Directives: No Advance Directives Information Provided: Yes Advance Directives on File: No Recently lost weight without trying: Yes How much weight loss: 34pounds or more Eating poorly because of decreased appetite: No Nutrition screen score: 6 Nutrition Risks: No Nutritional Risk Poor oral hygiene: Yes (upper full denture) service: Yes Current occupational status: retired Current occupation: right hand Current occupational exposures/hazards: No Cognitive needs: No Hearing needs: No Vision needs: No Meds Allergies Allergy/AdvReac Type Severity Reaction Status Date / Time No Known Allergies Allergy Verified 05/05/23 11:39 Home Medications Medication Instructions Recorded Confirmed Last Taken Type aspirin 81 mg tablet,delayed 81 mg PO DAILY 07/02/22 05/26/23 02/25/23 History release (Adult Aspirin Regimen) Exam Airway Mallampati Class: II (missing multiple, nothing loose) TM Dist: >3cm Neck ROM: Full Heart: rrr Lungs: cta Assessment and Plan Assessment Anesthesia Assessment: Anesthesia Plan Discussed Final Anesthetic Review NPO: Yes ASA Class: III Final Preanesthetic Review: No Changes in Pt Med Stat, Meds/Allgs Chart Reviewed and Consent Obtained/Reviewed Patient Risk: Intermediate Procedure Risk: Intermediate Anesthetic Plan Anesthetic Plan: GA Disposition: Standard PACU
[2023-05-26 13:29] VITALS: BMI 21.7
--- NOTE | 2023-05-27 | ECG_ITS ---
Test Reason : preop Blood Pressure : / mmHG Vent. Rate : 067 BPM Atrial Rate : 067 BPM P-R Int : 158 ms QRS Dur : 088 ms QT Int : 410 ms P-R-T Axes : 071 -17 043 degrees QTc Int : 433 ms Normal sinus rhythm Normal ECG No previous ECGs available Referred By: Eun Hung Electronically Signed By:XIN HAGAN
--- NOTE | ~2023-05-27 | FL_ITS ---
EXAMINATION: XR FLUOROSCOPY WITH IMAGES CLINICAL INFORMATION: C3-C4, C4-C5 anterior cervical discectomy with fusion COMPARISON: None available. TECHNIQUE: Fluoroscopy Supervised By: Dr. Recio. Fluoroscopy Time: 0.0 minutes. Cumulative Dose: 0.646 mGy. DAP: 0.176 Gycm2. Images: 2. FINDINGS: There is anterior fusion hardware with disc spacer at C3-C4 and C4-C5. Appropriate alignment. Bridging osteophytes at the lower cervical spine. FL/FL guidance in OR IMPRESSION: Status post anterior fusion at C3-C4 and C4-C5.
--- NOTE | 2023-05-27 09:38 | MHC.SHP ---
Pre-Procedural Eval Section A Date of Service: 05/27/23 Section B Chief Complaint: Unspecified cord compression Allergies: Allergies Allergy/AdvReac Type Severity Reaction Status Date / Time No Known Allergies Allergy Verified 05/05/23 11:39 Review of Systems Sugical H&P ROS: Negative: Constitution, Cardiovascular, Respiratory, Neurological, Psychiatric, Hem-Onc, Allergic/Immunologic, Gastrointestinal, Genitourinary, Musculoskeletal, Integumentary, Endocrine and Eyes/Ears/Nose/Throat Exam Surgical H&P Exam: Not Evaluated: HEENT, Not Evaluated: Heart, Not Evaluated: Lungs, Not Evaluated: Extremities, Not Evaluated: Abdomen, Not Evaluated: Skin and Not Evaluated: Neurological Plan Diagnosis/Plan: Unchanged I have reviewed the history and physical and performed a pertinent physical examination on my patient. No changes have occurred unless specified. Plan remains the same, C3-4, C4-5 ACDF Time Spent With Patient Time: Total time managing care of this patient today _10___ minutes.
[2023-05-27] MEDS: Lactated Ringers 1,000 ML 100 ML IVCONT (12:05)
[2023-05-27] MEDS: Gabapentin 300 MG CAPSULE PO (12:09)
[2023-05-27] MEDS: methocarbamoL 750 MG TABLET PO (12:09)
[2023-05-27 12:27] LABS: Hematocrit 32.2 % (42.0-52.0); Hemoglobin 10.8 g/dl (14.0-18.0); Mean Corpuscular HGB Conc 33.5 g/dl (31.0-36.0); Mean Corpuscular Hemoglobin 31.7 pg (27.0-33.0); Mean Corpuscular Volume 94.4 fL (80.0-98.0); Mean Platelet Volume 9.5 fL (9.4-12.4); Platelet Count 222 X10*3/uL (160-400); Red Blood Count 3.41 X10*6/uL (4.60-5.80); Red Cell Distribution Width 14.2 % (11.0-16.0); White Blood Count 10.7 X10*3/uL (4.8-10.8)
[2023-05-27 12:46] LABS: Anion Gap 12 (12-20); Blood Urea Nitrogen 31 mg/dL (9-16); Calcium 9.6 mg/dL (8.4-10.2); Carbon Dioxide 28 mmol/L (22-29); Chloride 104 mmol/L (96-108); Creatinine Clr Calc Pharmacy 29.8; Estimated Glomerular Filt Rate 28; Glucose Fasting 98 mg/dL (60-99); Potassium 4.5 mmol/L (3.3-5.1); Sodium 139 mmol/L (135-145)
--- NOTE | 2023-05-27 16:43 | PM.DS ---
DS: Providers Provider Date of Service: 05/27/23 Primary care physician: Jesus Argueta MD DS: Summary Time Spent with Patient Time attestation: Total time managing care of this patient today ____ minutes. Discharge coordination time: Less than 30 minutes Quality: Safe Use of Opioids Does Pt have an Active Cancer Diagnosis on the Problem List?: No Quality: Stroke Does the patient have a stroke diagnosis?: No Physical Exam Vital Signs: Vital Signs: BMI result Body Mass Index 21.7 DS: Data Data Completed and Pending Labs on day of discharge: Laboratory Results - last 24 hr 05/27/23 05/27/23 05/27/23 12:18 12:18 12:18 WBC 10.7 RBC 3.41 L Hgb 10.8 L Hct 32.2 L MCV 94.4 MCH 31.7 MCHC 33.5 RDW 14.2 Plt Count 222 MPV 9.5 Absolute Nucleated RBC 0.000 Nucleated RBC % (auto) 0.0 Sodium 139 Potassium 4.5 Chloride 104 Carbon Dioxide 28 Anion Gap 12 BUN 31 H Creatinine 2.33 H Estim Creat Clear Calc 29.8 Estimated GFR 28 Fasting Glucose 98 Calcium 9.6 D Blood Type O Negative Antibody Screen NEGATIVE Discharge Plan Discharge Patient Disposition: Home, Self-Care Referrals: Jesus Argueta MD [Primary Care Provider] - 1 Week Discharge Medications: New oxycodone 5 mg tablet 5 mg PO Q6H PRN (Reason: severe pain (scale score 7-10)) Qty: 30 0RF Rx Instructions: Partial Fill upon patient request. acetaminophen 500 mg tablet 1,000 mg PO Q8H Qty: 42 0RF Continued atorvastatin 40 mg tablet 40 mg PO DAILY 90 Days Qty: 90 3RF aspirin [Adult Aspirin Regimen] 81 mg tablet,delayed release (DR/EC) 81 mg PO DAILY sertraline 50 mg tablet 50 mg PO DAILY 30 Days Qty: 30 2RF enalapril maleate 5 mg tablet 7.5 mg PO DAILY 90 Days Qty: 135 3RF pantoprazole 40 mg tablet,delayed release (DR/EC) 40 mg PO DAILY Qty: 90 3RF Rx Instructions: take one tablet half an hour before breakfast Discharge Orders: Discharge Order (Routine); Ordered 05/27/23 Ordered By: Rodolfo Hughes Diet: Advance to usual diet Activity on Discharge: As tolerated Activity Restrictions/Additional Instructions: After your spinal surgery we ask you to observe the following restrictions/guidelines: Activity: It is normal to feel some discomfort as you increase your activity, but that will improve with time. We ask you avoid heavy lifting or acitivities that cause pain. As a general rule, 8lbs is a safe limit for lifting right after surgery. Walk as much as you feel comfortable but not to exhaustion. You will feel extra tired the first few days after surgery. Stay well hydrated. It is OK to walk up and down stairs You may return to driving when you are off narcotics (such as vicodin, oxycodone, dilaudid, etc), and you are back to normal functional capacity. If you have any concerns please check with office before driving. Return to work is specific to each patient and each surgery, so please speak with your doctor/PA at first follow up. Please bring paperwork such as FMLA at that time if you need it filled out. Medications: We will give you a short supply of narcotics after surgery (usually one weeks worth). If you need more please call the office but do not use more than prescribed. You will need to give our office 48 hours notice if you need narcotics refilled and we do not fill narcotics on weekends or evenings. If you are on a narcotic, it is a good idea to take a stool softener such as colace or senna to avoid constipation If you take blood thinner such as aspirin, Plavix, Coumadin, Effient, Eliquis etc for conditions such as Afib, DVT, Pulmonary embolus, coronary disease, stents etc please speak with your surgeon about specific details as to when you can resume these medications. You can resume NSAIDs on post op day 1 (eg: Motrin, Naproxen, etc). Follow up: Please call the office, , after surgery to arrange a 3 week follow up for wound check. Wound Care: You may remove your dressing on the first day after surgery. You may leave open to air. Please do not remove the steri strips underneath. they will fall off on their own in one week. IT IS NORMAL FOR THE WOUND TO OOZE OR BE BLOODY FOR A FEW DAYS AFTER SURGERY. IF THIS HAPPENS JUST PLACE NEW DRESSING OVER IT TO AVOID STAINING CLOTHES. You may shower on post op day # 1 We ask that you do not let the water soak the wound. If it does get wet, just towel dry lightly. Please do not scrub your incision or place any type of chemical/ointment on the wound. No tub baths, pools or jacuzzis for one month. If you have any leaking or redness from your wound, or fevers, please call the office.
--- NOTE | 2023-05-27 16:52 | P.OP_ITS ---
Operative Note Operative Note Date of Service: 05/27/23 Narrative: Preoperative Diagnosis: cervical myelopathy and radiculopathy due to spinal cord compression Procedure: C3-C4, C4-C5 anterior discectomy, arthrodesis and implantation cage ; C3-C5 anterior instrumentation ; local autograft; microscope Informed Consent was obtained for this operation. I have explained the nature, purpose and benefits of the operation. I have discussed the risks and benefit of the operation including possible complications or adverse events with patient/family. Alternative(s) were discussed with the patient with their relative benefits and risks as well as the consequences of not accepting the op eration were included in obtaining consent. Surgeon: BRIANA MCCLURE MD, PHD Procedure Assisted By: Rodolfo Hughes PA-c Description of Procedure: this 73-year-old male is suffering from neck pain, bilateral radiculopathy and signs of cervical myelopathy. An MRI shows severe spinal cord compression C3-4 and C4-5 with myelomalacia. He was offered an anterior diskectomy and fusion of these levels decompress the spinal cord and exiting nerve roots. The procedure and complications were explained. The patient was consented. The patient was brought to the operating room and endotracheally intubated. The patient was put in supine position with slight extension of the neck. Prep and drape was done followed by timeout. A mid cervical incision was made followed by opening of the platysma. The prevertebral fascia was reached following the natural planes while the physician visual merchandising assistant provided manual retraction. The prevertebral fascia was opened to expose the disc space. A spinal needle was placed in the disk space to confirm the correct level with xray. The longus colli muscles were released bilaterally and a self retaining retractor was inserted. Two Spencer pins were placed in the C3-C4 vertebral bodies and distraction was give over the interspace. The discectomy was completed toward the posterior annulus of the disc. The microscope was brought in. The remainder of the discectomy was completed. a large posterior osteophyte originating from the body of C3 was drilled down with a high-speed drill. Then a 2. Kerrison was used to remove the osteophyte which was saved for autog raft.The posterior ligament was opened and resected to expose the underlying dura. More osteophytes were resected from the body of C3 and C4 to decompress the spinal cord and saved for autograft. Bilateral foraminotomies were done. The endplates were prepared after which a 6 mm cage filled with autograft was inserted into the disc space. A separate attached plate was locked down with 2 x 14 mm screws as anterior instrumentation. then attention was turned to the C4-5 disc space. The disc height was enlarged with a high-speed drill. Posterior osteophytes were drilled down and removed with a 1. And 2 Kerrison and saved for autograft. The posterior longitudinal ligament was opened and resected to decompress the underlying spinal cord and bilateral foraminotomies were done to decompress the exiting nerve root. Again, a 6 mm cage filled with autograft was inserted into the disc space. A separate attached plate was locked down we 2 x 14 mm screws as anterior instrumentation.Final x-rays in AP and lateral projection showed a satisfactory position of the implants. The physician visual merchandising assistant took over. The Spencer pin was removed. Hemostasis was done. He closed the incision in 2 layers with a 3-0 Vicryl. Steri-Strips used to approximate incision. An OpSite with Tegaderm was used to cover the incision. All sponge and needle counts were correct. Patient was extubated and transported in stable is to recovery room. Anesthesia: General Estimated Blood Loss (ml): 10 cc Duration of Surgery: 90 minutes Postoperative Plan: Discharge home Complications: None
[2023-05-27 17:15] VITALS: BP 130/67; PULSE 77; RESP 15; TEMP 36.4; O2SAT 97
[2023-05-27 17:20] VITALS: BP 134/64; PULSE 76; RESP 14; O2SAT 94
[2023-05-27 17:25] VITALS: BP 140/57; PULSE 79; RESP 16; O2SAT 95
[2023-05-27 17:30] VITALS: BP 120/65; PULSE 78; RESP 16; O2SAT 95
[2023-05-27 17:45] VITALS: BP 136/67; PULSE 76; RESP 14; O2SAT 96
[2023-05-27 18:00] VITALS: BP 138/76; PULSE 82; RESP 16; TEMP 36.6; O2SAT 97
== END 2023-05-27 18:10 | disposition home or self-care (01) ==
PROVIDERS: Nurse Practitioner; PCP Family Medicine; Visit Provider Neurological Surgery
PROC: (CPT 22551; principal; 2023-05-27 13:40)
DX: G95.20 Unspecified cord compression (principal); M50.91 Cervical disc disorder, unspecified, high cervical region; M50.30 Other cervical disc degeneration, unspecified cervical region; M48.02 Spinal stenosis, cervical region; I12.9 Hypertensive chronic kidney disease with stage 1 through stage 4 chronic kidney disease, or unspecified chronic kidney disease; N18.9 Chronic kidney disease, unspecified; J44.9 Chronic obstructive pulmonary disease, unspecified; Z79.82 Long term (current) use of aspirin; Z79.899 Other long term (current) drug therapy; F17.210 Nicotine dependence, cigarettes, uncomplicated; Z98.890 Other specified postprocedural states
CPT/HCPCS: 22551; 22552; 22853 ×2; 20936; 22845; 36415; 80048; 85027; 86850; 86900; 86901; 93005; C1713; J0131; J0330; J0690; J1100; J1170; J2250; J2405; J3010

== ENCOUNTER → 2023-05-27 11:27 | Outpatient (BNV) | payer MEDICARE, SELFPAY | PROVIDERS: PCP Family Medicine; Visit Provider Physician Assistant | DX: M50.01 Cervical disc disorder with myelopathy, high cervical region (principal); G95.20 Unspecified cord compression | CPT/HCPCS: 20936; 22551; 22552; 22845; 22853 ==

== ENCOUNTER 2023-05-29 08:58 | Outpatient (REF) | payer MEDICARE, SELFPAY ==
[2023-05-29 12:19] LABS: Anion Gap 11 (12-20); Blood Urea Nitrogen 36 mg/dL (9-16); Calcium 9.2 mg/dL (8.4-10.2); Carbon Dioxide 27 mmol/L (22-29); Chloride 105 mmol/L (96-108); Estimated Glomerular Filt Rate 25; Potassium 4.3 mmol/L (3.3-5.1); Sodium 139 mmol/L (135-145)
[2023-05-29 12:30] LABS: Vitamin D 25-OH Total 34.3 ng/mL (>30)
[2023-05-29 12:59] LABS: Creatinine Urine 141.98 mg/dL; Microalbum/Creatinine Ratio Ur 6.3 ug/mg cr (<30)
[2023-05-31 12:39] LABS: PTHI 49 pg/mL (16-77)
== END 2023-05-29 08:59 | disposition home or self-care (01) ==
LOC: HO.HMGCLDS 08:58
PROVIDERS: PCP Family Medicine; Visit Provider Internal Medicine Nephrology
DX: N18.30 Chronic kidney disease, stage 3 unspecified (principal)
CPT/HCPCS: 36415; 80051; 82043; 82306; 82310; 82565; 82570; 83970; 84520

== ENCOUNTER 2023-06-05 11:27 | Outpatient (AMB) | payer MEDICARE, SELFPAY ==
--- NOTE | 2023-06-05 11:36 | A.OFFPC_ITS ---
Vital Signs 06/05/23 11:38 Height 6 ft Weight 155 lb 4 oz BMI 21.1 BP 122/78 Blood Pressure Location Lt brachial Position Sitting Respiration 16 Pulse 68 Pulse Source Pulse Oximeter Pulse Oximetry (%) 98 Oxygen Delivery Method Room Air Intake Visit Reasons: f/u acute adjustment disorder Intake Note: Patient is here to follow up on acute adjustment disorder, depression. Allergies No Known Allergies Allergy (Verified 06/05/23 11:41) Tobacco use date assessed: 06/05/23 Fall risk assessment: No Falls in past year Last assessed Fall Risk: 06/05/23 HPI f/u acute adjustment disorder HPI Details 73 y/o male presents to f/u acute adjust ment disorder/depression as well as hypertension and CRF. Had given him a script for sertraline. He notes he does not notice anything from the sertraline. He notes it sometimes gives him some GI upset. He does still have a therapist. Labs were drawn 05/27/23. Reviewed labs with pt. Creatinine level worsened from 2.16 to 2.57 on 05/29/23. Blood pressure today 122/78. [facility] Medical History (Updated 05/26/23 @ 13:23 by Kaila Hall RN) Arthritis Back pain Diverticulosis Hematuria Shoulder pain, bilateral Cervicalgia GERD (gastroesophageal reflux disease) Anxiety Depression Chronic kidney disease High blood pressure High cholesterol Surgical History (Updated 05/26/23 @ 13:28 by Kaila Hall RN) History of esophagogastroduodenoscopy (EGD) History of carpal tunnel release Hx of colonoscopy Hx of cystoscopy H/O aortic aneurysm repair H/O bone graft Family History Father Substance abuse Social History Housing: House Are you a primary primary care physician to a significant other at home: No Do you presently have visiting nurse or other home services: No Patient Tobacco Use Status: Current everyday Tobacco user Tobacco use type: Cigarette Cigarette Packs Per Day: 1 Cigarettes Per Day: 20.0 Years Smoked: 50 Packs Per Year: 50 Packs per year/per ci.00 e-Cigarette/Vaping Use: Never Used Second Hand Smoke Exposure: No service: Yes Current occupational status: retired Current occupation: right hand Current occupational exposures/hazards: No Cognitive needs: No Hearing needs: No Vision needs: No Questionnaire PHQ-9 Over the last 2 weeks, how often have you been bothered by any of the following problems? 1. Little interest or pleasure in doing things: not at all 2. Feeling down, depressed, or hopeless: not at all 3. Trouble falling or staying asleep, or sleeping too much: nearly every day 4. Feeling tired or having little energy: nearly every day (since his surgery, hard to sleep) 5. Poor appetite or overeating: not at all 6. Feeling bad about yourself - or that you are a failure or have let yourself or your family down: not at all 7. Trouble concentrating on things, such as reading the newspaper or watching television: not at all 8. Moving or speaking so slowly that other people could have noticed. Or the opposite - being so fidgety or restless that you have been moving around a lot more than usual: not at all 9. Thoughts that you would be better off or of hurting yourself in some way: not at all Total score: 6 Source: Developed by Drs. Emmanuel Stafford, Demi Lozano, Lavelle Kerr and colleagues, with an educational emy from [employer]. Thrive Questionnaire Date Thrive assessed: 11/04/22 RODRÍGUEZ-7 AMB Questionnaire RODRÍGUEZ-7 Date RODRÍGUEZ - 7 assessed: 06/05/23 Feeling nervous, anxious, or on edge: 0 = Not at all Not being able to stop or control worryin = Not at all Worrying too much about different things: 0 = Not at all Trouble relaxin = Nearly every day Being so restless that it is hard to sit still: 0 = Not at all Becoming easily annoyed or irritable: 0 = Not at all Feeling afraid as if something awful might happen: 0 = Not at all Total RODRÍGUEZ-7 score (0-4 normal; 5-9 mild; 10-14 moderate; 15-21 severe): 3 Source: Developed by Drs. Emmanuel Stafford, Demi Lozano, Lavelle Kerr and colleagues, with an educational emy from [employer]. Physical exam (Primary Care) Vital Signs: Last Vital Signs Pulse 68 06/05/23 11:38 Resp 16 06/05/23 11:38 BP 122/78 06/05/23 11:38 Pulse Ox 98 06/05/23 11:38 Oxygen Delivery Method Room Air 06/05/23 11:38 BMI result Body Mass Index 21.1 Tobacco/Smoking Status: Tobacco use Status Tobacco use date assessed 06/05/23 06/05/23 11:42 Patient Tobacco Use Status Current everyday Tobacco 06/05/23 11:38 Tobacco use type Cigarette 06/05/23 11:38 e-Cigarette/Vaping Use Never Used 06/05/23 11:38 PHQ-9: PHQ-9 Score PHQ-9: Total score 6 06/05/23 12:30 Thrive Assessment: Date of Thrive Assessment Date Thrive assessed 11/04/22 06/05/23 11:38 Assessment and Plan Assessment & Plan (1) Renal failure: Code(s): N19 - Unspecified kidney failure Plan: Renal failure with increasing creatinine levels despite decreasing enalapril from 10 mg daily to 7.5 mg daily. Blood pressure remains controlled. Will recheck creatinine and renal function levels and if worsening still will decrease enalapril to 5 mg daily and use other blood pressure medications to maintain appropriate blood pressure. Has seen his entertainment director recently and will follow-up as recommended Encouraged good hydration and rechecking labs-will follow-up in 2 weeks (2) Essential hypertension: Code(s): I10 - Essential (primary) hypertension Plan: Blood pressure is controlled. Goal is less than 140/90 however patient has hypertensive nephrosclerosis so I am encouraging him to work at blood pressure is below 130/80. For now, continue current medication regimen (3) Acute adjustment disorder: Code(s): F43.20 - Adjustment disorder, unspecified Plan: Patient did not notice much improvement with sertraline and notes that it sometimes gives him some GI upset He also says that he seems to be past the worst of his anxiety depression. He does still have a therapist. He can discontinue sertraline. If any worsening of symptoms with discontinuance of sertraline, he can resume this and let me know - he could try taking this with food as he has been taking it on an empty stomach. For now, discontinue sertraline. Orders: Orders Comprehensive Met. Panel Today N19 - Unspecified kidney failure Medications: Discontinued sertraline Discontinued Reason: Doctor's Order 50 mg PO DAILY 30 tabs 2RF 30 days Coding Level of Care Code Est Pt Level 4 (18039) Diagnoses Renal failure N19 Essential hypertension I10 Acute adjustment disorder F43.20
[2023-06-05 11:38] VITALS: BP 122/78; PULSE 68; RESP 16; O2SAT 98; BMI 21.1
== END 2023-06-05 12:51 | disposition home or self-care (01) ==
PROVIDERS: PCP Family Medicine; Visit Provider Family Medicine
DX: N19 Unspecified kidney failure (principal); I10 Essential (primary) hypertension; F43.20 Adjustment disorder, unspecified
CPT/HCPCS: 99214

== ENCOUNTER 2023-06-09 09:45 | Outpatient (REF) | payer MEDICARE, SELFPAY ==
[2023-06-09 13:58] LABS: Alanine Aminotransferase 10 U/L (0-40); Albumin Level 3.9 g/dL (3.5-5.0); Alkaline Phosphatase 80 U/L (39-117); Anion Gap 11 (12-20); Aspartate Amino Transferase 19 U/L (5-37); Bilirubin Total 0.4 mg/dL (0.0-1.0); Blood Urea Nitrogen 31 mg/dL (9-16); Calcium 9.7 mg/dL (8.4-10.2); Carbon Dioxide 28 mmol/L (22-29); Chloride 104 mmol/L (96-108); Estimated Glomerular Filt Rate 27; Glucose Random 96 mg/dL (60-115); Potassium 4.9 mmol/L (3.3-5.1); Sodium 138 mmol/L (135-145); Total Protein 7.1 g/dL (6.5-8.0)
== END 2023-06-09 09:46 | disposition home or self-care (01) ==
LOC: HO.HMGCLDS 09:45
PROVIDERS: PCP Family Medicine; Visit Provider Family Medicine
DX: N19 Unspecified kidney failure (principal)
CPT/HCPCS: 36415; 80053

== ENCOUNTER → 2023-06-17 10:11 | Outpatient (BNVA) | payer MEDICARE, SELFPAY | PROVIDERS: PCP Family Medicine; Visit Provider Physician Assistant ==

== ENCOUNTER 2023-07-22 10:15 | Outpatient (REF) | payer MEDICARE, SELFPAY | END 2023-07-22 10:16 | disposition home or self-care (01) | LOC: HO.HOSX 10:15 | PROVIDERS: Visit Provider Physician Assistant | DX: Z13.89 Encounter for screening for other disorder (principal) ==

== ENCOUNTER 2023-07-29 09:53 | Outpatient (AMB) | payer MEDICARE, SELFPAY ==
--- NOTE | 2023-07-29 10:18 | A.OFFVIS_ITS ---
Intake Intake Visit Reasons: 6wk post op with Xrays Intake Note: pt here for 6 week follow up with Xrays [employer] Administrator Required: No Allergies No Known Allergies Allergy (Verified 06/05/23 11:41) PFS Medical History (Updated 05/26/23 @ 13:23 by Kaila Hall RN) Arthritis Back pain Diverticulosis Hematuria Shoulder pain, bilateral Cervicalgia GERD (gastroesophageal reflux disease) Anxiety Depression Chronic kidney disease High blood pressure High cholesterol Surgical History (Updated 07/29/23 @ 10:31 by TEE Arce) History of esophagogastroduodenoscopy (EGD) History of carpal tunnel release Hx of colonoscopy Hx of cystoscopy H/O aortic aneurysm repair H/O bone graft Family History Father Substance abuse Social History Housing: House Are you a primary child care aide to a significant other at home: No Do you presently have visiting nurse or other home services: No Patient Tobacco Use Status: Current everyday Tobacco user Tobacco use type: Cigarette Cigarette Packs Per Day: 1 Cigarettes Per Day: 20.0 Years Smoked: 50 e-Cigarette/Vaping Use: Never Used Second Hand Smoke Exposure: No service: Yes Current occupational status: retired Current occupation: right hand Current occupational exposures/hazards: No Cognitive needs: No Hearing needs: No Vision needs: No Assessment & Plan Assessment & Plan (1) S/P cervical spinal fusion: Code(s): Z98.1 - Arthrodesis status Plan Procedure: C3-C4, C4-C5 Jason comes in today for his 2nd postoperative visit. He reports he is very satisfied with the surgery and feels much better than he did preoperatively. He states that his neck pain is gone. The patient reports he is up walking around and completing the majority of his ADLs. He is utilizing both of his hands without significant difficulty. He does still have some nonspecific weakness of the left upper extremity, but states it has been gradually improving since surgery. No neurological deficits. Patient is able to ambulate well, rises from a seated position without difficulty. Incision sites are closed, well healing, with no signs of drainage. There is no need for continued follow-up with Jason. He was encouraged to reach out to our office in the future if he feels he needs to see us again. Rodolfo Recio MD,PhD [facility] Coding Level of Care Code Global (69967) Diagnoses S/P cervical spinal fusion Z98.1
== END 2023-07-29 11:07 | disposition home or self-care (01) ==
PROVIDERS: PCP Family Medicine; Visit Provider Physician Assistant
DX: Z98.1 Arthrodesis status (principal)
CPT/HCPCS: 99024

== ENCOUNTER → 2023-07-29 09:53 | Outpatient (BNVA) | payer MEDICARE, SELFPAY | PROVIDERS: PCP Family Medicine; Visit Provider Physician Assistant ==

== ENCOUNTER 2023-07-29 10:03 | Outpatient (REF) | payer MEDICARE, SELFPAY ==
--- NOTE | ~2023-07-29 | XR_ITS ---
EXAMINATION: XR CERVICAL SPINE CLINICAL INFORMATION: Arthrodesis COMPARISON: 06/03/2023 fluoroscopic OR images. TECHNIQUE: 4 views of the cervical spine inclusive of AP, lateral, flexion and extension views. FINDINGS: Redemonstration of anterior fusion hardware with disc spacers at C3-C4 and C4-C5. Advanced degenerative changes with loss of disc space height and hypertrophic change at the C5-C6 and C6-C7. C7 vertebral body partially obscured by overlying bone and soft tissues, limiting evaluation. XR/XR cervical spine 4V IMPRESSION: Status post anterior fusion at C3-C4 and C4-C5. Hardware appears intact.
== END 2023-07-29 10:04 | disposition home or self-care (01) ==
LOC: HO.HOSX 10:03
PROVIDERS: Visit Provider Physician Assistant
DX: Z47.89 Encounter for other orthopedic aftercare (principal); Z98.1 Arthrodesis status
CPT/HCPCS: 72050; 99212

== ENCOUNTER 2023-10-08 13:09 | Outpatient (AMB) | payer MEDICARE, SELFPAY ==
[2023-10-08 13:13] VITALS: BP 138/76; PULSE 81; RESP 13; TEMP 36.6; O2SAT 99; BMI 23.2
--- NOTE | 2023-10-08 13:13 | A.OFFPC_ITS ---
Vital Signs 10/08/23 13:13 Height 6 ft Weight 171 lb 2 oz BMI 23.2 BP 138/76 Blood Pressure Location Rt brachial Position Sitting Respiration 13 Pulse 81 Pulse Source Pulse Oximeter Temp 98 F Temp Source Temporal Artery Scan Pulse Oximetry (%) 99 Oxygen Delivery Method Room Air Intake Visit Reasons: f/u renal failure Intake Note: Patient states that he is concerned due to him not having blood work done in a while and is not use that. Patient states that he also may be having arthritis d ue to finger locking and having pain in hands and side. Dry Cleaner Helper Required: No Accompanied by: Self / Same As Patient Allergies No Known Allergies Allergy (Verified 10/08/23 13:19) Tobacco use date assessed: 06/05/23 Last assessed Fall Risk: 10/08/23 Dental Screening Dental Screen Date: 10/08/23 Did you have a dental visit in the last 12 months?: No Did you have a dental problem in the last 6 months where you did not have access to dental care?: No Was dental information given to patient?: Yes HPI f/u renal failure HPI Details 73 y/o male presents to f/u renal failur e. Blood pressure today 138/76. He is on enalapril 7.5mg daily. Labs were drawn 06/09/23. Reviewed labs with pt. Creatinine level improved from 2.57 to 2.40. [facility] Medical History Arthritis Back pain Diverticulosis Hematuria Shoulder pain, bilateral Cervicalgia GERD (gastroesophageal reflux disease) Anxiety Depression Chronic kidney disease High blood pressure High cholesterol Surgical History History of surgical removal of vertebral body of cervical spine History of esophagogastroduodenoscopy (EGD) History of carpal tunnel release Hx of colonoscopy Hx of cystoscopy H/O aortic aneurysm repair H/O bone graft Family History Father Substance abuse Social History Housing: House Are you a primary post acute care nurse to a significant other at home: No Do you presently have visiting nurse or other home services: No Patient Tobacco Use Status: Current everyday Tobacco user Tobacco use type: Cigarette Cigarette Packs Per Day: 0.5 Cigarettes Per Day: 10 Years Smoked: 50 e-Cigarette/Vaping Use: Never Used Second Hand Smoke Exposure: No service: Yes Current occupational status: retired Current occupation: right hand Current occupational exposures/hazards: No Cognitive needs: No Hearing needs: No Vision needs: No Questionnaire Thrive Questionnaire Date Thrive assessed: 11/04/22 RODRÍGUEZ-7 AMB Questionnaire RODRÍGUEZ-7 Date RODRÍGUEZ - 7 assessed: 06/05/23 Source: Developed by Drs. Emmanuel Stafford, Demi Lozano, Lavelle Kerr and colleagues, with an educational emy from [employer]. Review of Systems Const Denies chills, Denies fatigue, Denies fever(s), Denies headache(s) and Denies weakness ENT Denies dizziness and Denies headache(s) Card Denies chest pain, Denies lightheadedness, Denies dyspnea and Denies other (Palpitations) Resp Denies cough, Denies dyspnea, Denies wheezing and Denies other ( shortness of breath) Musc Denies numbness and Denies tingling Neuro Denies dizziness, Denies headache(s), Denies numbness, Denies tingling, Denies paresthesias and Denies weakness Psych Denies anxiety and Denies depression Endo Denies fatigue Aller/Immun Denies wheezing Physical exam (Primary Care) Vital Signs: Last Vital Signs Temp 98 F 10/08/23 13:13 Pulse 81 10/08/23 13:13 Resp 13 10/08/23 13:13 BP 138/76 10/08/23 13:13 Pulse Ox 99 10/08/23 13:13 Oxygen Delivery Method Room Air 10/08/23 13:13 BMI result Body Mass Index 23.2 Tobacco/Smoking Status: Tobacco use Status Tobacco use date assessed 06/05/23 10/08/23 13:17 Patient Tobacco Use Status Current everyday Tobacco 10/08/23 13:17 Tobacco use type Cigarette 10/08/23 13:17 e-Cigarette/Vaping Use Never Used 10/08/23 13:17 Thrive Assessment: Date of Thrive Assessment Date Thrive assessed 11/04/22 10/08/23 13:17 Const General: no acute distress and well developed Nutritional Appearance: well nourished Orientation/consciousness: patient oriented x3 HENMT Head: Yes normocephalic and Yes atraumatic Eyes General: appearance normal, both eyes and all related structures Pupils: Equal, round and reactive pupils present EOM: EOMs intact bilaterally Resp Effort & Inspection: normal respiratory effort Auscultation: clear to auscultation bilaterally Cardio Rate: regular rate Rhythm: regular rhythm Heart sounds: S1 normal heart sound present, S2 normal heart sound present, no gallops, no murmurs and no rubs Neuro General: patient oriented x3 and gait normal Cranial nerves: Yes Equal, round and reactive pupils present Psych Affect: normal affect Assessment and Plan Assessment & Plan (1) Essential hypertension: Code(s): I10 - Essential (primary) hypertension Plan: Blood?pressure?at?top?of?controlled?range Will?add?metoprolol Decreasing?enalapril?due?to?renal?function-see?below (2) Chronic kidney disease: Code(s): N18.9 - Chronic kidney disease, unspecified Plan: Patient?has?chronic?renal?failure?and?I?had?decreased?his?enalapril Will?decrease?this?further?to?2.5?mg?daily?and?use?metoprolol?for?his?blood?pres sure?control. Leaving?a?small?dose?of?enalapril?for?renal?protection (3) Left arm weakness: Code(s): R29.898 - Other symptoms and signs involving the musculoskeletal system Plan: Nonacute?Left?arm?weakness?and?paresthesias Referred?to?neurology (4) Arm paresthesia, left: Code(s): R20.2 - Paresthesia of skin Plan: As?above (5) Trigger finger, right: Code(s): M65.30 - Trigger finger, unspecified finger Plan: Advised?he?call?his?hand?specialist Orders: Orders Comprehensive Met. Panel Today N19 - Unspecified kidney failure Microalbumin, Random (w Creat) Today I10 - Essential (primary) hypertension, N19 - Unspecified kidney failure UA and rflx microscopic Today N19 - Unspecified kidney failure, Z00.00 - Encounter for general adult medical examination without abnormal findings Prostate Specific Antigen Scr Today Z12.5 - Encounter for screening for malignant neoplasm of prostate TSH reflex Free T4 Today R79.89 - Other specified abnormal findings of blood chemistry, Z00.00 - Encounter for general adult medical examination without abnormal findings Referrals Neurology Referral R20.2 - Paresthesia of skin, R29.898 - Other symptoms and signs involving the musculoskeletal system Medications: New metoprolol succinate ER 50 mg PO BID 30 days 60 tabs 2RF blood pressure monitor Automatic, Digital. Dx: I10. Daily As directed, 999 days/lifetime 1 ea 0RF I10 - Essential (primary) hypertension Changed From enalapril maleate 7.5 mg (1.5 x 5 mg) PO DAILY 90 days 135 tabs 3RF To enalapril maleate 2.5 mg (1/2 x 5 mg) PO DAILY 90 days 45 tabs 3RF Coding Level of Care Code Est Pt Level 4 (21748) Diagnoses Essential hypertension I10 Chronic kidney disease N18.9 Left arm weakness R29.898 Arm paresthesia, left R20.2 Trigger finger, right M65.30
== END 2023-10-08 14:38 | disposition home or self-care (01) ==
PROVIDERS: PCP Family Medicine; Visit Provider Family Medicine
DX: I12.9 Hypertensive chronic kidney disease with stage 1 through stage 4 chronic kidney disease, or unspecified chronic kidney disease (principal); N18.9 Chronic kidney disease, unspecified; R29.898 Other symptoms and signs involving the musculoskeletal system; R20.2 Paresthesia of skin; M65.30 Trigger finger, unspecified finger
CPT/HCPCS: 99214

== ENCOUNTER 2023-10-12 08:47 | Outpatient (REF) | payer MEDICARE, SELFPAY ==
[2023-10-12 11:12] LABS: Appearance Urine Clear; Color Urine Yellow; Glucose Urine UA Negative (Negative); Leukocyte Esterase Urine Negative (Negative); Nitrite Urine Negative (Negative); PH 5.5 (5.0-9.0); UMIC TRIGGER UA YES; Urine Blood Moderate (2+) (Negative); Urine Ketones Negative (Negative); Urine Protein Trace mg/dL (Neg-Trace)
[2023-10-12 11:15] LABS: Bacteria Urine None Seen (None Seen); Hyaline Casts Urine 0-2 /LPF (0-2); Squamous Epithelial Cell Urine 0-2 /HPF (0-2); WBC Urine 0-5 /HPF (0-5)
[2023-10-12 12:21] LABS: Alanine Aminotransferase 8 U/L (0-40); Albumin Level 3.9 g/dL (3.5-5.0); Alkaline Phosphatase 82 U/L (39-117); Anion Gap 10 (12-20); Aspartate Amino Transferase 15 U/L (5-37); Bilirubin Total 0.3 mg/dL (0.0-1.0); Blood Urea Nitrogen 46 mg/dL (9-16); Calcium 9.2 mg/dL (8.4-10.2); Carbon Dioxide 27 mmol/L (22-29); Chloride 104 mmol/L (96-108); Estimated Glomerular Filt Rate 22; Glucose Random 102 mg/dL (60-115); Potassium 4.6 mmol/L (3.3-5.1); Sodium 136 mmol/L (135-145); Total Protein 7.2 g/dL (6.5-8.0)
[2023-10-12 12:23] LABS: Creatinine Urine 135.58 mg/dL; Microalbum/Creatinine Ratio Ur 8.8 ug/mg cr (<30)
[2023-10-12 12:39] LABS: TSH reflex Free T4 2.62 uIU/mL (0.32-4.0)
== END 2023-10-12 08:48 | disposition home or self-care (01) ==
LOC: HO.HMGCLDS 08:47
PROVIDERS: PCP Family Medicine; Visit Provider Family Medicine
DX: Z00.00 Encounter for general adult medical examination without abnormal findings (principal); Z12.5 Encounter for screening for malignant neoplasm of prostate; R79.89 Other specified abnormal findings of blood chemistry; I10 Essential (primary) hypertension; N19 Unspecified kidney failure
CPT/HCPCS: 36415; 80053; 81001; 82043; 82570; 84153; 84443

== ENCOUNTER 2023-10-23 15:21 | Outpatient (AMB) | payer MEDICARE, SELFPAY ==
--- NOTE | 2023-10-23 15:13 | A.OFFPC_ITS ---
Intake Visit Reasons: f/u labs Intake Note: Patient is calling to follow up on labs, and is disappointed in the call center, can not get through, has to come in to make appointments Allergies No Known Allergies Allergy (Verified 10/23/23 15:16) Tobacco use date assessed: 10/23/23 Fall risk assessment: No Falls in past year Last assessed Fall Risk: 10/23/23 HPI f/u labs HPI Details 73 y/o male presents to f/u labs via tel emedicine. Labs were drawn 10/12/23. Reviewed labs with pt. Creatinine level worsened from 2.40 to 2.82. 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 He states he has been checking his blood pressure at home. He notes every m orning he records 114/66, 139/79, 136/63 and had recorded a systolic pressure of 104. [facility] Medical History Arthritis Back pain Diverticulosis Hematuria Shoulder pain, bilateral Cervicalgia GERD (gastroesophageal reflux disease) Anxiety Depression Chronic kidney disease High blood pressure High cholesterol Surgical History History of surgical removal of vertebral body of cervical spine History of esophagogastroduodenoscopy (EGD) History of carpal tunnel release Hx of colonoscopy Hx of cystoscopy H/O aortic aneurysm repair H/O bone graft Family History Father Substance abuse Social History Housing: House Are you a primary long term care pharmacist to a significant other at home: No Do you presently have visiting nurse or other home services: No Patient Tobacco Use Status: Current everyday Tobacco user Tobacco use type: Cigarette Cigarette Packs Per Day: 0.5 Cigarettes Per Day: 10 Years Smoked: 50 Packs Per Year: 25 Packs per year/per ci.00 e-Cigarette/Vaping Use: Never Used Second Hand Smoke Exposure: No service: Yes Current occupational status: retired Current occupation: right hand Current occupational exposures/hazards: No Cognitive needs: No Hearing needs: No Vision needs: No Questionnaire Thrive Questionnaire Date Thrive assessed: 11/04/22 RODRÍGUEZ-7 AMB Questionnaire RODRÍGUEZ-7 Date RODRÍGUEZ - 7 assessed: 06/05/23 Source: Developed by Drs. Emmanuel Stafford, Demi Lozano, Lavelle Kerr and colleagues, with an educational emy from [employer]. Physical exam (Primary Care) Tobacco/Smoking Status: Tobacco use Status Tobacco use date assessed 10/23/23 10/23/23 15:18 Patient Tobacco Use Status Current everyday Tobacco 10/23/23 15:18 Tobacco use type Cigarette 10/23/23 15:18 e-Cigarette/Vaping Use Never Used 10/23/23 15:18 Thrive Assessment: Date of Thrive Assessment Date Thrive assessed 11/04/22 10/23/23 15:18 Telehealth Telehealth Location of provider rendering services: practice address Location of patient: address on file Patient Identification confirmed using: Name, : Yes Telehealth method: voice only Patient verbally consented to treatment: Yes Patient verbally consented to billing insurance company: Yes Patient informed of any privacy concerns related to visit: Yes Minutes spent on Phone/Video with Pt.: 11 Assessment and Plan Assessment & Plan (1) Chronic kidney disease: Code(s): N18.9 - Chronic kidney disease, unspecified Plan: Creatinine?has?risen?again?despite?decreasing?enalapril. 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 Hester (2) Screening for prostate cancer: Code(s): Z12.5 - Encounter for screening for malignant neoplasm of prostate Plan: PSA?is?within?normal?limits (3) Essential hypertension: Code(s): I10 - Essential (primary) hypertension Plan: Patient?is?log?of?blood?pressures?at?home?are?quite?good. Taking?metoprolol?as?prescribed?and?a?low?dose?of?enalapril No?changes?to?his?medication?though?he?will?follow-up?with?Dr. Hester due?to?rising?creatinine?level Will?follow-up?in?about?3?months Coding Level of Care Code Tele Est Pt Level 2 (41282) Diagnoses Chronic kidney disease N18.9 Screening for prostate cancer Z12.5 Essential hypertension I10
== END 2023-10-23 17:00 ==
LOC: HO.HMGFM 15:21
PROVIDERS: PCP Family Medicine; Visit Provider Family Medicine
DX: I12.9 Hypertensive chronic kidney disease with stage 1 through stage 4 chronic kidney disease, or unspecified chronic kidney disease (principal); N18.9 Chronic kidney disease, unspecified; Z12.5 Encounter for screening for malignant neoplasm of prostate
CPT/HCPCS: 99442

== ENCOUNTER 2023-12-11 13:53 | Outpatient (AMB) | payer MEDICARE, SELFPAY ==
--- NOTE | 2023-12-11 13:53 | A.OFFVIS_ITS ---
Intake Intake Visit Reasons: 1y follow up Intake Note: Patient presents today for hematuria Urology Medications: none Blood thinner: aspirin Civil Laboratory Technician Required: No Accompanied by: Self / Same As Patient Allergies No Known Allergies Allergy (Verified 12/11/23 14:43) Medication List - Last Reconciled 12/11/23 by WIL Romero aspirin (Adult Aspirin Regimen) 81 mg PO DAILY atorvastatin 40 mg PO DAILY 90 days blood pressure monitor Automatic, Digital. Dx: I10. Daily As directed, 999 days/lifetime metoprolol succinate ER 50 mg PO BID 30 days pantoprazole 40 mg PO DAILY HPI HPI Comments History of Present Illness Details Jason is a pleasant 73-year-old male patient of Dr. Argueta. He has a past medical history of arthritis, back pain, diverticulosis, GERD, anxiety, depression, chronic kidney disease, hypertension, and hypercholesteremia. He presents to the office today for follow-up of his microscopic hematuria. Of note, patient underwent in office cystoscopy with Dr. Tse approximately 1 year ago for microscopic hematuria in the setting of nicotine dependence. Previous workup has included CT urogram 12/11 with benign findings. Urine cytology negative for high-grade urothelial carcinoma. In discussion with the patient today reports to be doing and feeling well. In office urinalysis with 2+ microscopic hematuria. He continues to report nicotine dependence. Discussed at length potential causes of microscopic hematuria. Discussed further workup verses surveillance monitoring. He otherwise denies any bothersome urinary issues or concerns. He denies urinary urgency, urinary frequency, incontinence, nocturia, hematuria, dysuria, foul smelling urine, jeffrey nges to urinary stream, flank pain, fever, and or chills. He is happy with his current voiding parameters. I review of patients chart it appears PSA 10/14--1.5. He does report Peyronie's disease however does not find this bothersome as he is not sexually active or having any issues at this time. He otherwise denies any other issues or concerns at this time. 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 [employer] Cytology NAD Imaging - 11/13 NAD Cystoscopy - 12/11 NAD [facility] Medical History Arthritis Back pain Diverticulosis Hematuria Shoulder pain, bilateral Cervicalgia GERD (gastroesophageal reflux disease) Anxiety Depression Chronic kidney disease High blood pressure High cholesterol Surgical History History of surgical removal of vertebral body of cervical spine History of esophagogastroduodenoscopy (EGD) History of carpal tunnel release Hx of colonoscopy Hx of cystoscopy H/O aortic aneurysm repair H/O bone graft Family History Father Substance abuse Social History Housing: House Are you a primary director career to a significant other at home: No Do you presently have visiting nurse or other home services: No Patient Tobacco Use Status: Current everyday Tobacco user Tobacco use type: Cigarette Cigarette Packs Per Day: 0.5 Cigarettes Per Day: 10 Years Smoked: 50 e-Cigarette/Vaping Use: Never Used Second Hand Smoke Exposure: No service: Yes Current occupational status: retired Current occupation: right hand Current occupational exposures/hazards: No Cognitive needs: No Hearing needs: No Vision needs: No Review of Systems Const Reports no additional complaints Eyes Reports no additional complaints ENT Reports no additional complaints Card Reports as per HPI Resp Reports no additional complaints GI Reports as per HPI Reports as per HPI Musc Reports as per HPI Neuro Reports no additional complaints Psych Reports as per HPI Endo Reports no additional complaints Physical Exam Const General: cooperative, healthy appearing, comfortable, no acute distress, well developed, alert and awake Orientation/consciousness: patient oriented x3 Limitations: no limitations HEENT Head: Yes normal to inspection, Yes normocephalic and Yes atraumatic Ears: hearing grossly normal bilaterally Eyes General: appearance normal, both eyes and all related structures Neck Neck: Yes normal visual inspection and Yes trachea midline Chest Chest palpation & inspection: normal inspection of the chest Resp Effort & Inspection: normal respiratory effort and able to speak in complete sentences Cardio Rate: regular rate GI Inspection: Yes normal to inspection General: Yes no CVA tenderness Back/Spine/Pelvis Back: no CVA tenderness Skin General skin exam: no rashes or lesions noted Neuro General: patient oriented x3 Extrem General: Yes normal to inspection Psych Appearance: grossly normal and well kempt Mental Status: mental status grossly normal Speech and movement: Normal speech and movement present and Clear speech present Affect: normal affect Attitude: cooperative Thought process: Normal thought process present Thought content: Normal thought content present Insight: Fair insight present (Psych) Judgement: Fair judgement present (Psych) Results AMB Urinalysis, Automated UA Leukoctes 0 Katerin/uL Last Edit by Jennifer Copeland on 12/11/23 14:20 UA Nitrite Negative Last Edit by [employer] on 12/11/23 14:20 UA Urobilinogen 0.2 mg/dL Last Edit by [employer] on 12/11/23 14:20 UA Protein 15 mg/dL Last Edit by [employer] on 12/11/23 14:20 UA pH 5.5 Last Edit by [employer] on 12/11/23 14:20 UA Blood 80 Blayne/uL Last Edit by [employer] [facility] [facility] on 12/11/23 14:20 UA Specific [place] 1.015 Last Edit by [employer] on 12/11/23 14:20 UA Ketone Negative Last Edit by [employer] on 12/11/23 14:20 UA Bilirubin 0 mg/dL Last Edit by [employer] [facility] [facility] on 12/11/23 14:20 UA Glucose 0 mg/dL Last Edit by [employer] on 12/11/23 14:20 Results Reviewed Results Reviewed: Laboratory Last Values Urine pH (Auto) 5.5 12/11/23 14:02 Specific [place] (Auto) 1.015 12/11/23 14:02 Urine Protein (Auto) 15 mg/dL 12/11/23 14:02 Glucose (UA)(Auto) 0 mg/dL 12/11/23 14:02 Urine Ketones (Auto) Negative 12/11/23 14:02 Urine Blood (Auto) 80 Blayne/uL 12/11/23 14:02 Urine Nitrite (Auto) Negative 12/11/23 14:02 Urine Bilirubin (Auto) 0 mg/dL 12/11/23 14:02 Urine Urobilinogen (Auto) 0.2 mg/dL 12/11/23 14:02 Leukocyte Esterase (Auto) 0 Katerin/uL 12/11/23 14:02 Assessment & Plan Assessment & Plan (1) Smoker: Code(s): F17.200 - Nicotine dependence, unspecified, uncomplicated (2) Hematuria, microscopic: Code(s): R31.29 - Other microscopic hematuria (3) Peyronie's disease: Code(s): N48.6 - Induration penis plastica Plan In office urinalysis results reviewed with the patient today; will send for urine cytology. Discussed at length potential causes of microscopic hematuria. Discussed further treatment options with surveillance monitoring verses further microscopic hematuria workup in the setting of nicotine dependence. Patient currently denies any bothersome urinary issues or concerns. Will continue with surveillance monitoring of Peyronie's disease as patient does not find this bothersome at this time and is not sexually active He reports to be happy with current voiding parameters. Discussed possible near future cystoscopy with bladder biopsies under sedation. Follow-up in 1-3 months with cytology; or sooner with any issues, concerns, and or questions. Orders: Orders AMB Urinalysis Automated 12/11/23 Z13.9 - Encounter for screening, unspecified Urine Cytology 12/11/23 R31.29 - Other microscopic hematuria Patient Instructions: The patient had an opportunity to ask questions regarding the treatment plan. All questions were answered. Physical exam, labs, and imaging were discussed and reviewed in detail. As well as risks, benefits, and discussion of treatment choices. No major barriers to understanding were identified. The patient expressed understanding and agreement with the above treatment plan. The patient was made aware they should contact our office by phone for worsening of their current condition, the appearance of new symptoms, or with any questions or concerns. Compliance is encouraged with any medications and follow up testing that is ordered. It is a privilege to be allowed the opportunity to participate in? your urological care.? Again, if you have any questions or concerns If you have any questions or concerns please do not hesitate to contact me. The office is [phone]. This note is constructed using voice recognition software. While every effort has been made to ensure accuracy agricultural equipment salesperson errors may have been included. Yours sincerely, WIL Romero Coding Level of Care Code Est Pt Level 4 (69101) Diagnoses Smoker F17.200 Hematuria, microscopic R31.29 Peyronie's disease N48.6 Time Spent (min) 35
== END 2023-12-11 14:50 | disposition home or self-care (01) ==
PROVIDERS: Visit Provider Nurse Practitioner Family
DX: F17.200 Nicotine dependence, unspecified, uncomplicated (principal); R31.29 Other microscopic hematuria; N48.6 Induration penis plastica
CPT/HCPCS: 99214

== ENCOUNTER 2023-12-11 13:53 | Outpatient (REF) | payer MEDICARE, SELFPAY ==
[2023-12-11 17:13] LABS: Urine Cytology See Pathology rpt
== END 2023-12-11 13:54 | disposition home or self-care (01) ==
LOC: HO.LNP 13:53
PROVIDERS: Visit Provider Nurse Practitioner Family
DX: R31.29 Other microscopic hematuria (principal)
CPT/HCPCS: 81003; 88112; 99212

== ENCOUNTER 2024-01-22 08:11 | Outpatient (REF) | payer MEDICARE, SELFPAY ==
[2024-01-22 11:03] LABS: Alanine Aminotransferase 9 U/L (0-40); Albumin Level 3.7 g/dL (3.5-5.0); Alkaline Phosphatase 80 U/L (39-117); Anion Gap 12 (12-20); Aspartate Amino Transferase 17 U/L (5-37); Bilirubin Total 0.5 mg/dL (0.0-1.0); Blood Urea Nitrogen 29 mg/dL (9-16); Calcium 9.4 mg/dL (8.4-10.2); Carbon Dioxide 25 mmol/L (22-29); Chloride 103 mmol/L (96-108); Estimated Glomerular Filt Rate 24; Glucose Random 101 mg/dL (60-115); Potassium 4.4 mmol/L (3.3-5.1); Sodium 136 mmol/L (135-145)
[2024-01-22 11:25] LABS: Creatinine Urine 165.78 mg/dL; Microalbum/Creatinine Ratio Ur 5.4 ug/mg cr (<30)
== END 2024-01-22 08:12 | disposition home or self-care (01) ==
LOC: HO.HMGCLDS 08:11
PROVIDERS: Internal Medicine Nephrology; PCP Family Medicine; Visit Provider Family Medicine
DX: N18.30 Chronic kidney disease, stage 3 unspecified (principal)
CPT/HCPCS: 36415; 80053; 82043; 82570

== ENCOUNTER 2024-01-27 14:58 | Outpatient (AMB) | payer MEDICARE, SELFPAY ==
--- NOTE | 2024-01-27 14:58 | MHC.OFFVIS ---
Intake Visit Reasons: 2m follow up Intake Note: Patient presents for tele visit follow up for hematuria and peyronie's Urology Medications: none Blood thinner: aspirin Manager Custom Required: No Accompanied by: Self / Same As Patient Allergies No Known Allergies Allergy (Verified 01/27/24 15:09) Medication List - Last Reconciled 01/27/24 by JOYCE Romero- aspirin (Adult Aspirin Regimen) 81 mg PO DAILY atorvastatin 40 mg PO DAILY 90 days blood pressure monitor Automatic, Digital. Dx: I10. Daily As directed, 999 days/lifetime metoprolol succinate ER 50 mg PO BID 30 days pantoprazole 40 mg PO DAILY HPI Comments Details: Jason is a pleasant 73-year-old male patient of Dr. Argueta. He has a past medical history of arthritis, back pain, diverticulosis, GERD, anxiety, depression, chronic kidney disease, hypertension, and hypercholesteremia. He is being followed up on today via telehealth for microscopic hematuria in the setting of nicotine dependence. Urine cytology results reviewed and trended with the patient today as noted above. 10/13 Rare atypical epithelial cells with squamoid features 10/14 Negative for high-grade urothelial carcinoma. 12/12 Atypical urothelial cells Of note, patient underwent in office cystoscopy with Dr. Tse approximately 1 year ago for microscopic hematuria in the setting of nicotine dependence. Previous workup has included CT urogram 12/11 with benign findings. In discussion with the patient today reports to be doing and feeling well. He continues to report nicotine dependence. Discussed at length potential causes of microscopic hematuria. Discussed further workup verses surveillance monitoring. He otherwise denies any bothersome urinary issues or concerns. He denies urinary urgency, urinary frequency, incontinence, nocturia, hematuria, dysuria, foul smelling urine, changes to urinary stream, flank pain, fever, and or chills. He is happy with his current voiding parameters. I review of patients chart it appears PSA 10/14--1.5. He does report Peyronie's disease however does not find this bothersome as he is not sexually active or having any issues at this time. He otherwise denies any other issues or concerns at this time. 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[employer] Cytology NAD Imaging - 11/13 NAD Cystoscopy - 12/11 NAD PFSH Medical History Arthritis Back pain Diverticulosis Hematuria Shoulder pain, bilateral Cervicalgia GERD (gastroesophageal reflux disease) Anxiety Depression Chronic kidney disease High blood pressure High cholesterol Surgical History History of surgical removal of vertebral body of cervical spine History of esophagogastroduodenoscopy (EGD) History of carpal tunnel release Hx of colonoscopy Hx of cystoscopy H/O aortic aneurysm repair H/O bone graft Family History Father Substance abuse Social History Housing: House Are you a primary health care analyst to a significant other at home: No Do you presently have visiting nurse or other home services: No Patient Tobacco Use Status: Current everyday Tobacco user Tobacco use type: Cigarette Cigarette Packs Per Day: 0.5 Cigarettes Per Day: 10 Years Smoked: 50 e-Cigarette/Vaping Use: Never Used Second Hand Smoke Exposure: No service: Yes Current occupational status: retired Current occupation: right hand Current occupational exposures/hazards: No Cognitive needs: No Hearing needs: No Vision needs: No Review of Systems Const Reports no additional complaints Eyes Reports no additional complaints ENT Reports no additional complaints Card Reports as per HPI Resp Reports no additional complaints GI Reports as per HPI Reports as per HPI Musc Reports as per HPI Neuro Reports no additional complaints Psych Reports as per HPI Endo Reports no additional complaints Physical Exam Const General: cooperative, healthy appearing, comfortable, no acute distress, well developed, alert and awake Orientation/consciousness: patient oriented x3 Limitations: no limitations HEENT Head: Yes normal to inspection, Yes normocephalic and Yes atraumatic Ears: hearing grossly normal bilaterally Eyes General: appearance normal, both eyes and all related structures Neck Neck: Yes normal visual inspection and Yes trachea midline Chest Chest palpation & inspection: normal inspection of the chest Resp Effort & Inspection: normal respiratory effort and able to speak in complete sentences Cardio Rate: regular rate GI Inspection: Yes normal to inspection General: Yes no CVA tenderness Back/Spine/Pelvis Back: no CVA tenderness Skin General skin exam: no rashes or lesions noted Neuro General: patient oriented x3 Extrem General: Yes normal to inspection Psych Appearance: grossly normal and well kempt Mental Status: mental status grossly normal Speech and movement: Normal speech and movement present and Clear speech present Affect: normal affect Attitude: cooperative Thought process: Normal thought process present Thought content: Normal thought content present Insight: Fair insight present (Psych) Judgement: Fair judgement present (Psych) Telehealth Telehealth Telehealth Platform: [employer] Location of provider rendering services: practice address Location of patient: address on file Patient Identification confirmed using: Name, : Yes Telehealth method: video Patient verbally consented to treatment: Yes Patient verbally consented to billing insurance company: Yes Patient informed of any privacy concerns related to visit: Yes Assessment & Plan Assessment & Plan (1) Abnormal cytology: Code(s): R89.6 - Abnormal cytological findings in specimens from other organs, systems and tissues Category: Medical (2) Smoker: Code(s): F17.200 - Nicotine dependence, unspecified, uncomplicated Category: Social Hx (3) Hematuria, microscopic: Code(s): R31.29 - Other microscopic hematuria Category: Medical (4) Peyronie's disease: Code(s): N48.6 - Induration penis plastica Category: Medical Plan Recent cytology results reviewed with the patient today; as noted and trended above. Will obtain fish for further assessment evaluation. Discussed at length potential causes of microscopic hematuria. Discussed further treatment options with surveillance monitoring verses further microscopic hematuria workup in the setting of nicotine dependence. Patient currently denies any bothersome urinary issues or concerns. Will continue with surveillance monitoring of Peyronie's disease as patient does not find this bothersome at this time and is not sexually active. He reports to be happy with current voiding parameters. Discussed possible near future cystoscopy with bladder biopsies under sedation. Follow-up in 1 month with FISH; or sooner with any issues, concerns, and or questions. Orders: Orders FISH Bladder Cancer Today R89.6 - Abnormal cytological findings in specimens from other organs, systems and tissues Patient Instructions: The patient had an opportunity to ask questions regarding the treatment plan. All questions were answered. Physical exam, labs, and imaging were discussed and reviewed in detail. As well as risks, benefits, and discussion of treatment choices. No major barriers to understanding were identified. The patient expressed understanding and agreement with the above treatment plan. The patient was made aware they should contact our office by phone for worsening of their current condition, the appearance of new symptoms, or with any questions or concerns. Compliance is encouraged with any medications and follow up testing that is ordered. It is a privilege to be allowed the opportunity to participate in? your urological care.? Again, if you have any questions or concerns If you have any questions or concerns please do not hesitate to contact me. The office is [phone]. This note is constructed using voice recognition software. While every effort has been made to ensure accuracy truck driver instructor errors may have been included. Yours sincerely, WIL Romero Coding Level of Care Code Tele Est Pt Level 3 (62514) Diagnoses Abnormal cytology R89.6 Smoker F17.200 Hematuria, microscopic R31.29 Peyronie's disease N48.6
== END 2024-01-27 15:16 | disposition home or self-care (01) ==
LOC: HO.HUSH 14:58
PROVIDERS: PCP Family Medicine; Visit Provider Nurse Practitioner Family
DX: R89.6 Abnormal cytological findings in specimens from other organs, systems and tissues (principal); R31.29 Other microscopic hematuria; N48.6 Induration penis plastica; F17.200 Nicotine dependence, unspecified, uncomplicated
CPT/HCPCS: 99213

== ENCOUNTER → 2024-01-27 14:58 | Outpatient (BNVA) | payer MEDICARE, SELFPAY | PROVIDERS: PCP Family Medicine; Visit Provider Nurse Practitioner Family ==

== ENCOUNTER 2024-01-28 12:57 | Outpatient (AMB) | payer MEDICARE, SELFPAY ==
[2024-01-28 13:07] VITALS: BP 138/78; PULSE 57; O2SAT 58; BMI 23.4
--- NOTE | 2024-01-28 13:07 | MHC.PC.OV ---
Vital Signs 01/28/24 13:07 Height 6 ft Weight 172 lb 4 oz BMI 23.4 BP 138/78 Blood Pressure Location Lt brachial Position Sitting Pulse 57 Pulse Source Pulse Oximeter Pulse Oximetry (%) 58 L Oxygen Delivery Method Room Air Intake Visit Reasons: f/u hypertension Renal failure/chronic conditions Intake Note: Patient is here for follow up on hypertension and renal faliure and chronic condtions. Allergies No Known Allergies Allergy (Verified 01/28/24 13:09) Medication List - Last Reconciled 01/28/24 by Jesus Argueta MD aspirin (Adult Aspirin Regimen) 81 mg PO DAILY atorvastatin 40 mg PO DAILY 90 days blood pressure monitor Automatic, Digital. Dx: I10. Daily As directed, 999 days/lifetime metoprolol succinate ER 50 mg PO BID 30 days pantoprazole 40 mg PO DAILY Tobacco use date assessed: 01/28/24 Fall risk assessment: No Falls in past year Last assessed Fall Risk: 01/28/24 Dental Screening Dental Screen Date: 10/08/23 HPI f/u hypertension Renal failure/chronic conditions HPI Details Patient?presents?to?follow-up?hypertension?and?chronic?renal?failure. Recently?had?enalapril?stop?by?his?acute specialist?due?to?worsening?renal?function. Renal?function?appears?to?have?stabilized?since?and?his?blood?pressures?at?home?are?well?controlled. Also?followed?by?Urology?for?abnormal?urine?cytology.??Workup?is?still?in?progress. FORMERLY [facility], [facility]–1983 Medical History Arthritis Back pain Diverticulosis Hematuria Shoulder pain, bilateral Cervicalgia GERD (gastroesophageal reflux disease) Anxiety Depression Chronic kidney disease High blood pressure High cholesterol Surgical History History of surgical removal of vertebral body of cervical spine History of esophagogastroduodenoscopy (EGD) History of carpal tunnel release Hx of colonoscopy Hx of cystoscopy H/O aortic aneurysm repair H/O bone graft Family History (Updated 01/28/24 @ 13:11 by Lisa Parikh CMA) Father Substance abuse Social History Housing: House Are you a primary personal care worker to a significant other at home: No Do you presently have visiting nurse or other home services: No Patient Tobacco Use Status: Current everyday Tobacco user Tobacco use type: Cigarette Cigarette Packs Per Day: 0.5 Cigarettes Per Day: 10 Years Smoked: 50 e-Cigarette/Vaping Use: Never Used Second Hand Smoke Exposure: No service: Yes Current occupational status: retired Current occupation: right hand Current occupational exposures/hazards: No Cognitive needs: No Hearing needs: No Vision needs: No Questionnaire Thrive Questionnaire Date Thrive assessed: 11/04/22 RODRÍGUEZ-7 AMB Questionnaire RODRÍGUEZ-7 Date RODRÍGUEZ - 7 assessed: 06/05/23 Source: Developed by Drs. Emmanuel Stafford, Demi Lozano, Lavelle Kerr and colleagues, with an educational emy from [employer]. Review of Systems Const Denies chills, Denies fatigue, Denies fever(s), Denies headache(s) and Denies weakness ENT Denies dizziness and Denies headache(s) Card Denies chest pain, Denies lightheadedness, Denies dyspnea and Denies other (Palpitations) Resp Denies cough, Denies dyspnea, Denies wheezing and Denies other ( shortness of breath) Musc Denies numbness and Denies tingling Neuro Denies dizziness, Denies headache(s), Denies numbness, Denies tingling, Denies paresthesias and Denies weakness Psych Denies anxiety and Denies depression Endo Denies fatigue Aller/Immun Denies wheezing Physical exam (Primary Care) Vital Signs: Last Vital Signs Pulse 57 01/28/24 13:07 BP 138/78 01/28/24 13:07 Pulse Ox 58 L 01/28/24 13:07 Oxygen Delivery Method Room Air 01/28/24 13:07 BMI result Body Mass Index 23.4 Tobacco/Smoking Status: Tobacco use Status Tobacco use date assessed 01/28/24 01/28/24 13:11 Patient Tobacco Use Status Current everyday Tobacco 01/28/24 13:11 Tobacco use type Cigarette 01/28/24 13:11 e-Cigarette/Vaping Use Never Used 01/28/24 13:11 Thrive Assessment: Date of Thrive Assessment Date Thrive assessed 11/04/22 01/28/24 13:11 Const General: no acute distress and well developed Nutritional Appearance: well nourished Orientation/consciousness: patient oriented x3 [facility] Head: Yes normocephalic and Yes atraumatic Eyes General: appearance normal, both eyes and all related structures Pupils: Equal, round and reactive pupils present EOM: EOMs intact bilaterally Resp Effort & Inspection: normal respiratory effort Auscultation: clear to auscultation bilaterally Cardio Rate: regular rate Rhythm: regular rhythm Heart sounds: S1 normal heart sound present, S2 normal heart sound present, no gallops, no murmurs and no rubs Neuro General: patient oriented x3 and gait normal Cranial nerves: Yes Equal, round and reactive pupils present Psych Affect: normal affect Assessment and Plan Assessment & Plan (1) Essential hypertension: Code(s): I10 - Essential (primary) hypertension Plan: Blood?pressure?is?fairly?well?controlled?on?metoprolol?alone. He?notes?that?his?blood?pressures?are?typically?under?130/80?at?home.??Goal?is?less?than 130/80?due?to?history?of?aortic?aneurysm. Enalapril?was?discontinued?by?his?acute specialist?due?to?rising?creatinine?levels. Continue?current?medication?regimen (2) Chronic kidney disease: Code(s): N18.9 - Chronic kidney disease, unspecified Plan: Enalapril?was?discontinued?by??due?to?worsening?renal?function. Creatinine?has?leveled?off?and?decreased?a?little. Stable.??Follow-up?with?nephrology?as?recommended (3) Hematuria, microscopic: Code(s): R31.29 - Other microscopic hematuria Plan: Microscopic?hematuria?and?abnormal?urine?cytology.??He?is?followed?by?Urology Has?upcoming?workup?with immunohistochemistry Follow-up?with?urology?as?recommended.??Notes?that?cystoscopy?was?rather?traumatic?and?I?encouraged?him?to?discuss?anxiolytics?for?procedure. (4) Abnormal cytology: Code(s): R89.6 - Abnormal cytological findings in specimens from other organs, systems and tissues Plan: As?above Orders: Orders Comprehensive [place]. Panel Fast Today Z00.00 - Encounter for general adult medical examination without abnormal findings Lipid Panel Today Z00.00 - Encounter for general adult medical examination without abnormal findings UA and rflx microscopic Today Z00.00 - Encounter for general adult medical examination without abnormal findings TSH reflex Free T4 Today Z00.00 - Encounter for general adult medical examination without abnormal findings Microalbumin, Random (w Creat) Today I10 - Essential (primary) hypertension Complete Blood Count Auto Diff Today Z00.00 - Encounter for general adult medical examination without abnormal findings Prostate Specific Antigen Scr Today Z12.5 - Encounter for screening for malignant neoplasm of prostate Coding Level of Care Code Est Pt Level 4 (07166) Diagnoses Essential hypertension I10 Chronic kidney disease N18.9 Hematuria, microscopic R31.29 Abnormal cytology R89.6
== END 2024-01-28 14:00 | disposition home or self-care (01) ==
PROVIDERS: PCP Family Medicine; Visit Provider Family Medicine
DX: I12.9 Hypertensive chronic kidney disease with stage 1 through stage 4 chronic kidney disease, or unspecified chronic kidney disease (principal); N18.9 Chronic kidney disease, unspecified; R31.29 Other microscopic hematuria; R89.6 Abnormal cytological findings in specimens from other organs, systems and tissues
CPT/HCPCS: 99214

== ENCOUNTER 2024-02-01 13:56 | Outpatient (AMB) | payer MEDICARE, SELFPAY ==
--- NOTE | 2024-02-01 14:25 | A.OFFVIS_ITS ---
Vital Signs 02/01/24 14:26 Height 6 ft Weight 172 lb 2 oz BMI 23.3 BP 106/62 Blood Pressure Location Rt brachial Position Sitting Respiration 16 Pulse 84 Pulse Source Pulse Oximeter Pulse Oximetry (%) 196 H Oxygen Delivery Method Room Air Intake Visit Reasons: INP: Paresthesia - Confirmed Intake Note: Pt presents for new pt evaluation for left arm paresthesia. Pt reports this started over a year ago and has gotten worse and since spread to both arm. 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 Dx: I10. Daily As directed, 999 days/lifetime gabapentin 100 mg PO TID metoprolol succinate ER 50 mg PO BID 30 days pantoprazole 40 mg PO DAILY HPI Comments Details: 73y/o male comes for evaluation of neck pain that starts in his neck and ra diates to the left hand .He also has numbness in his left fingers. Now he also has some numbness in his right hand. He started having left hand numbness and tingling about 1 year ago . He was seen by DR. Hart - hand surgeon , had carpal tunnel release surgery . His post op EMG was normal . He was seen by Dr. Recio for neck pain - MRI C spine showed Cord compression -C3-C4, retrosubluxation and advanced multifactorial degenerative changes result in severe central canal stenosis, severe compression of the cervical spinal cord, and severe left foraminal stenosis. Intramedullary T2 signal changes within the cord at this level as the sequela of compressive myelopathy. Neurosurgical consultation advised. - At C4-C5, advanced multifactorial degenerative changes result in moderate to severe central canal stenosis, significant mass effect on the cervical cord, as well as severe left and moderate right foraminal stenosis. No definite cord signal changes at this level. - At C5-C6 and at C6-C7, advanced multifactorial degenerative changes result in moderate central canal stenosis, flattening of the cervical cord, and severe bilateral foraminal stenosis at both of these levels. - There is bone marrow edema within the right C2-C3 facets that is most likely degenerative/inflammatory. Modic type I endplate signal changes at C3-C4, C4-C5, and C6-C7. He had surgery anterior fusion of C 3-4 and C4-5. His main issue sis his persistent pain , numbness in his left hand.He denies any issues with bladder or bowel control.His gait is good , no falls. FORMERLY [facility] Medical History (Updated 02/01/24 @ 15:09 by Aduelia Ma MD) Left hand weakness Cervical spondylosis Arthritis Back pain Diverticulosis Hematuria Shoulder pain, bilateral Cervicalgia GERD (gastroesophageal reflux disease) Anxiety Depression Chronic kidney disease High blood pressure High cholesterol Surgical History History of surgical removal of vertebral body of cervical spine History of esophagogastroduodenoscopy (EGD) History of carpal tunnel release Hx of colonoscopy Hx of cystoscopy H/O aortic aneurysm repair H/O bone graft Family History Father Substance abuse Social History Housing: House Are you a primary careers counsellor to a significant other at home: No Do you presently have visiting nurse or other home services: No Patient Tobacco Use Status: Current everyday Tobacco user Tobacco use type: Cigarette Cigarette Packs Per Day: 0.5 Cigarettes Per Day: 10 Years Smoked: 50 e-Cigarette/Vaping Use: Never Used Second Hand Smoke Exposure: No service: Yes Current occupational status: retired Current occupation: right hand Current occupational exposures/hazards: No Cognitive needs: No Hearing needs: No Vision needs: No Physical Exam Vital Signs: Last Vital Signs Pulse 84 02/01/24 14:26 Resp 16 02/01/24 14:26 BP 106/62 02/01/24 14:26 Pulse Ox 196 H 02/01/24 14:26 Oxygen Delivery Method Room Air 02/01/24 14:26 BMI result Body Mass Index 23.3 Const General: cooperative, healthy appearing and comfortable Nutritional Appearance: average body habitus Orientation/consciousness: patient oriented x3 Eyes Pupils: Equal, round and reactive pupils present Neuro Other: antalgic gait General: patient oriented x3, tone normal, moves all extremities and no focal motor deficits Cranial nerves: Yes Facial sensation intact/muscles of mastication intact, Yes Equal, round and reactive pupils present, Yes Bilaterally intact EOM present, Yes Nystagmus not present, Yes Normal facial strength present, Yes Midline tongue present and Yes Symmetric palate elevation present Cognition (Neuro): normal cognition Gait exam (Neuro): Antalgic gait present Motor exam (neuro): 5/5 motor strength present throughout and Normal motor muscle tone present throughout Deep tendon reflexes (DTR's): Right triceps reflex intensity grade: 3+, Left triceps reflex intensity grade: 3+, Rt Biceps (C5, C6): 3+, Left biceps reflex intensity grade: 3+, Right brachioradialis reflex intensity grade: 3+, Left brachioradialis reflex intensity grade: 3+, Right patellar reflex intensity grade: 4+, Left patellar reflex intensity grade: 4+, Right ankle reflex intensity grade: 4+ and Left ankle reflex intensity grade: 4+ Coordination: [id number] test normal Assessment & Plan Assessment & Plan (1) Cervical spondylosis: Code(s): M47.812 - Spondylosis without myelopathy or radiculopathy, cervical region Category: Medical (2) Left hand weakness: Comment: discomfort ? RSD Code(s): R29.898 - Other symptoms and signs involving the musculoskeletal system Category: Medical (3) Arm paresthesia, left: Code(s): R20.2 - Paresthesia of skin Category: Medical Plan Lumbar spine Xray for hyperreflexia and back pain His discomfort and radicular symptoms are related to cervical spondylosis I will trial him on baclofen 10mg qhs and gabapentin 100mg tid PT and OT for neck and hand Orders: Orders XR lumbar spine 2-3V Today M54.9 - Dorsalgia, unspecified OT Evaluation and Treatment Today M47.812 - Spondylosis without myelopathy or radiculopathy, cervical region, R20.2 - Paresthesia of skin, R29.898 - Other symptoms and signs involving the musculoskeletal system Medications: New gabapentin 100 mg PO TID 90 caps 0RF baclofen 10 mg PO BEDTIME 30 tabs 1RF Coding Level of Care Code New Pt Level 4 (86594) Diagnoses Cervical spondylosis M47.812 Left hand weakness R29.898 Arm paresthesia, left R20.2
[2024-02-01 14:26] VITALS: BP 106/62; PULSE 84; RESP 16; O2SAT 196; BMI 23.3
== END 2024-02-01 15:13 | disposition home or self-care (01) ==
PROVIDERS: PCP Family Medicine; Visit Provider Psychiatry & Neurology Neurology
DX: M47.812 Spondylosis without myelopathy or radiculopathy, cervical region (principal); R29.898 Other symptoms and signs involving the musculoskeletal system; R20.2 Paresthesia of skin
CPT/HCPCS: 99204

== ENCOUNTER → 2024-02-01 13:56 | Outpatient (BNVA) | payer MEDICARE, SELFPAY | PROVIDERS: PCP Family Medicine; Visit Provider Psychiatry & Neurology Neurology | DX: M47.812 Spondylosis without myelopathy or radiculopathy, cervical region (principal); R29.898 Other symptoms and signs involving the musculoskeletal system; R20.2 Paresthesia of skin | CPT/HCPCS: 99202 ==

== ENCOUNTER 2024-02-03 11:40 | Outpatient (REF) | payer MEDICARE, SELFPAY ==
--- NOTE | ~2024-02-03 | XR_ITS ---
EXAMINATION: XR LUMBOSACRAL SPINE CLINICAL INFORMATION: Dorsalgia, unspecified COMPARISON: None available. TECHNIQUE: Three views of the lumbosacral spine. FINDINGS: There is slight curve of the lumbar spine, convex left. There is loss of the usual lumbar lordosis which can be seen with muscle spasm. There are 5 nonrib-bearing lumbar-type vertebral bodies. The height of vertebral bodies is well-maintained. There is marked disc space narrowing and marginal osteophyte formation at L2-L3, L3-L4, L4-L5 and L5-S1. There is no spondylolisthesis. There is multilevel degenerative facet joint disease. There is an abdominal aortic aneurysm with aortoiliac graft stent. XR/XR lumbar spine 2-3V IMPRESSION: 1. Muscle spasm. 2. Multilevel degenerative disc disease and degenerative facet joint disease. 3. Abdominal aortic aneurysm with aortoiliac graft stent in place.
== END 2024-02-03 11:41 | disposition home or self-care (01) ==
LOC: HO.HMGCX 11:40
PROVIDERS: PCP Family Medicine; Visit Provider Psychiatry & Neurology Neurology
DX: M54.9 Dorsalgia, unspecified (principal)
CPT/HCPCS: 72100

== ENCOUNTER 2024-02-18 12:40 | Outpatient (RCR) | payer MEDICARE, SELFPAY ==
--- NOTE | 2024-02-18 14:36 | MHC.OT.EP ---
[address] [phone] Occupational Therapy Plan of Care Patient Name: Jason Connell Date of Evaluation: 02/18/24 Diagnosis: Left hand weakness and parasthesia Pain Location: Denies pain, primary c/o constant parasthesia in B/L arms, hand to shoulder, worse on left Pain Score: 0 Aggravating Factors: N/A Alleviating Factors: Trialed resting wrist orthosis and PT exercises, no change Assessment: 73 yo male presents w/ persistent neck pain and left UE parasthesia for over a year. He was seen for initial PT eval last year for cervical dysfunction, but did not follow through w/ cont'd therapy. He has had significant work-up w/ nerve conduction and MRI and is also now post-op left CTR w/ Dr Hart last December as well as C3-C4, C4-C5 anterior discectomy, arthrodesis and implantation cage w/ Dr Recio last May. He was evaluated today in OT for assessment of left hand weakness and parasthesia. Symptoms appear consistent with higher level nerve compression and I was unable to reproduce symptoms along distal paths of median, radial or ulnar nerves. Gross grasp, pinch and general manual muscle testing is withing normal limits B/L'ly, but he does have impaired sensation left > right as seen through stereognosis and coordination testing. Sensation is impaired B/L'ly worse in median distribution of hand. He has tried hand exercises and nighttime wrist orthoses w/ no relief. He does have active trigger finger in right long finger, which we have splinted w/ Oval 8 and educated on diagnosis and management, otherwise no outpatient hand therapy is indicated at this time. I recommend follow up w/ neurologist or neurosurgeon for continued assessment and management. Electronically Signed By: Rosalva Norris, OTR/L CHT Please Sign and return to therapist. Thank you once again for your referral.
--- NOTE | 2024-02-18 14:38 | MHC.OT.DC ---
[address] [phone] F: [phone] Occupational Therapy Discharge Note Patient Name: Jason Connell Provider: Audelia Ma Diagnosis: Left hand weakness and parasthesia Date of Evaluation: 02/18/24 Date of Discharge: 02/18/24 Treatments to Date: 1 Discharge Status: Recommend MD Follow-up Discharge Summary: Jason was seen today for initial OT assessment of left hand weakness and parasthesia. I believe at this time he has trialed options for conservative management of distal neuropathy w/ parasthesia w/o relief (including home exercises, activity modification, wrist orthosis and even Left CTR). Symptoms appear consistent with higher level cervical involvement and he is not interesting in trying physical therapy again at this time. No further hand therapy indicated at this time, he is hoping to find relief through further assessment and medical management. Electronically Signed By: Rosalva Norris, OTR/L CHT Please Sign and return to therapist, thank you for your referral.
== END 2024-02-18 14:38 | disposition home or self-care (01) ==
LOC: HO.OT 12:40
PROVIDERS: PCP Family Medicine; Visit Provider Psychiatry & Neurology Neurology
DX: R20.2 Paresthesia of skin (principal); R29.898 Other symptoms and signs involving the musculoskeletal system; M47.812 Spondylosis without myelopathy or radiculopathy, cervical region
CPT/HCPCS: 97166

== ENCOUNTER 2024-02-19 08:28 | Outpatient (REF) | payer MEDICARE, SELFPAY | END 2024-02-19 08:29 | disposition home or self-care (01) | LOC: HO.HMGCLDS 08:28 | PROVIDERS: PCP Family Medicine; Visit Provider Family Medicine | DX: Z13.89 Encounter for screening for other disorder (principal) ==

== ENCOUNTER 2024-02-22 07:21 | Outpatient (REF) | payer MEDICARE, SELFPAY ==
[2024-02-22 10:23] LABS: Appearance Urine Clear; Color Urine Yellow; Glucose Urine UA Negative (Negative); Leukocyte Esterase Urine Negative (Negative); Nitrite Urine Negative (Negative); PH 5.5 (5.0-9.0); UMIC TRIGGER UA YES; Urine Blood Trace (Negative); Urine Ketones Negative (Negative); Urine Protein Negative (Neg-Trace)
[2024-02-22 10:29] LABS: Bacteria Urine None Seen (None Seen); Hyaline Casts Urine 0-2 /LPF (0-2); RBC Urine 0-2 /HPF (0-2); Squamous Epithelial Cell Urine 0-2 /HPF (0-2); WBC Urine 0-5 /HPF (0-5)
[2024-02-22 11:02] LABS: Creatinine Urine 89.18 mg/dL; Microalbumin Urine < 5.0 mg/L
== END 2024-02-22 07:22 | disposition home or self-care (01) ==
LOC: HO.HMGCLNP 07:21
PROVIDERS: PCP Family Medicine; Visit Provider Nurse Practitioner Family
DX: I10 Essential (primary) hypertension (principal)
CPT/HCPCS: 81001; 82043; 82570

== ENCOUNTER 2024-03-21 12:02 | Outpatient (AMB) | payer MEDICARE, SELFPAY ==
--- NOTE | 2024-03-21 12:02 | MHC.OFFVIS ---
Intake Visit Reasons: 1m follow up/FISH Intake Note: Patient presents for tele visit follow up for FISH Urology Medications: none Blood thinner: aspirin Lard Tub Washer Required: No Accompanied by: Self / Same As Patient Allergies No Known Allergies Allergy (Verified 03/21/24 12:06) HPI Comments Details: Jason is a pleasant 74-year-old male patient of Dr. Argueta. He has a past medical history of arthritis, back pain, diverticulosis, GERD, anxiety, depression, chronic kidney disease, hypertension, and hypercholesteremia. He is being followed up on today via telehealth for his history of microscopic hematuria in the setting of nicotine dependence. Of note, patient was seen approximately 2 months ago at which time a FISH was ordered for further assessment however this was not completed and patient does not currently wish to continue further workup of abnormal urine cytologies/microscopic hematuria. Urine cytology results reviewed and trended with the patient today as noted below: 10/13 Rare atypical epithelial cells with squamoid features. 10/14 Negative for high-grade urothelial carcinoma. 12/12 Atypical urothelial cells Of note, patient underwent in office cystoscopy with Dr. Tse 12/11 for microscopic hematuria in the setting of nicotine dependence in which she describes as a terrible experience. Previous workup has included CT urogram 12/11 with benign findings. In discussion with the patient today reports to be doing and feeling well. He continues to report nicotine dependence. Discussed at length potential causes of microscopic hematuria and abnormal urine cytologies. Discussed further workup verses surveillance monitoring. He otherwise denies any bothersome urinary issues or concerns. He denies urinary urgency, urinary frequency, incontinence, nocturia, hematuria, dysuria, foul smelling urine, changes to urinary stream, flank pain, fever, and or chills. He is happy with his current voiding parameters. I review of patients chart it appears PSA 10/14--1.5. He does report Peyronie's disease however does not find this bothersome as he is not sexually active or having any issues at this time. He discusses at length his bad experience with previous in office cystoscopy and will follow-up with PCP for potential 2nd opinion. He does not wish to undergo an in office cystoscopy or cystoscopy under sedation. Discussed and stressed the importance of follow-up with Urology due to abnormal cytologies. He otherwise denies any other issues or concerns at this time. 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 Cytology NAD Imaging - 11/13 NAD Cystoscopy - 12/11 NAD PFSH Medical History Left hand weakness Cervical spondylosis Arthritis Back pain Diverticulosis Hematuria Shoulder pain, bilateral Cervicalgia GERD (gastroesophageal reflux disease) Anxiety Depression Chronic kidney disease High blood pressure High cholesterol Surgical History History of surgical removal of vertebral body of cervical spine History of esophagogastroduodenoscopy (EGD) History of carpal tunnel release Hx of colonoscopy Hx of cystoscopy H/O aortic aneurysm repair H/O bone graft Family History Father Substance abuse Social History Housing: House Are you a primary child care giver to a significant other at home: No Do you presently have visiting nurse or other home services: No Patient Tobacco Use Status: Current everyday Tobacco user Tobacco use type: Cigarette Cigarette Packs Per Day: 0.5 Cigarettes Per Day: 10 Years Smoked: 50 e-Cigarette/Vaping Use: Never Used Second Hand Smoke Exposure: No service: Yes Current occupational status: retired Current occupation: right hand Current occupational exposures/hazards: No Cognitive needs: No Hearing needs: No Vision needs: No Review of Systems Const Reports no additional complaints Eyes Reports no additional complaints ENT Reports no additional complaints Card Reports as per HPI Resp Reports no additional complaints GI Reports as per HPI Reports as per HPI Musc Reports as per HPI Neuro Reports no additional complaints Psych Reports as per HPI Endo Reports no additional complaints Physical Exam Const General: cooperative Orientation/consciousness: patient oriented x3 Resp Effort & Inspection: able to speak in complete sentences Neuro General: patient oriented x3 Psych Mental Status: mental status grossly normal Speech and movement: Clear speech present Attitude: cooperative Thought process: Normal thought process present Thought content: Normal thought content present Insight: Fair insight present (Psych) Judgement: Fair judgement present (Psych) Telehealth Telehealth Telehealth Platform: [facility] Location of provider rendering services: practice address Location of patient: address on file Patient Identification confirmed using: Name, : Yes Telehealth method: voice only Patient verbally consented to treatment: Yes Patient verbally consented to billing insurance company: Yes Patient informed of any privacy concerns related to visit: Yes Minutes spent on Phone/Video with Pt.: 15 Assessment & Plan Assessment & Plan (1) Hematuria, microscopic: Code(s): R31.29 - Other microscopic hematuria Category: Medical (2) Smoker: Code(s): F17.200 - Nicotine dependence, unspecified, uncomplicated Category: Social Hx (3) Abnormal urine cytology: Code(s): R82.89 - Other abnormal findings on cytological and histological examination of urine Category: Medical Plan Discussed at length potential causes of abnormal cytologies as well as microscopic hematuria; this was discussed at length. Discussed potential delay in treatment; he is aware and verbalizes understanding He will follow-up with PCP per his request. He currently denies any bothersome urinary issues or concerns. He reports be happy with current voiding parameters. Patient will call for follow-up appointment if he wishes to follow-up. Patient Instructions: The patient had an opportunity to ask questions regarding the treatment plan. All questions were answered. Physical exam, labs, and imaging were discussed and reviewed in detail. As well as risks, benefits, and discussion of treatment choices. No major barriers to understanding were identified. The patient expressed understanding and agreement with the above treatment plan. The patient was made aware they should contact our office by phone for worsening of their current condition, the appearance of new symptoms, or with any questions or concerns. Compliance is encouraged with any medications and follow up testing that is ordered. It is a privilege to be allowed the opportunity to participate in? your urological care.? Again, if you have any questions or concerns If you have any questions or concerns please do not hesitate to contact me. The office is [phone]. This note is constructed using voice recognition software. While every effort has been made to ensure accuracy manager chemistry errors may have been included. Yours sincerely, WIL Romero Coding Level of Care Code Tele Est Pt Level 3 (29827) Diagnoses Hematuria, microscopic R31.29 Smoker F17.200 Abnormal urine cytology R82.89
== END 2024-03-21 12:30 | disposition home or self-care (01) ==
LOC: HO.HUSH 12:02
PROVIDERS: PCP Family Medicine; Visit Provider Nurse Practitioner Family
DX: R31.29 Other microscopic hematuria (principal); F17.200 Nicotine dependence, unspecified, uncomplicated; R82.89 Other abnormal findings on cytological and histological examination of urine
CPT/HCPCS: 99442

== ENCOUNTER → 2024-03-21 12:02 | Outpatient (BNVA) | payer MEDICARE, SELFPAY | PROVIDERS: PCP Family Medicine; Visit Provider Nurse Practitioner Family ==

== ENCOUNTER 2024-04-13 08:37 | Outpatient (REF) | payer MEDICARE, SELFPAY ==
[2024-04-13 10:16] LABS: MANUAL DIFF FLAG NO
[2024-04-13 10:21] LABS: Basophils Absolute Auto 0.1 X10*3/uL (0.0-0.2); Basophils Percent Auto 1.9 % (0-2); Eosinophils Absolute Auto 0.7 X10*3/uL (0.0-0.4); Eosinophils Percent Auto 10.7 % (0-4); Hematocrit 35.9 % (42.0-52.0); Hemoglobin 12.2 g/dl (14.0-18.0); Imm Gran Abs Auto 0.01 X10*3/uL (0.00-0.03); Imm Gran Pct Auto 0.2 % (0.0-0.4); Lymphocytes Absolute Auto 1.4 X10*3/uL (1.2-4.9); Lymphocytes Percent Auto 21.5 % (20-40); Mean Corpuscular Hemoglobin 31.1 pg (27.0-33.0); Mean Corpuscular Volume 91.6 fL (80.0-98.0); Mean Platelet Volume 9.6 fL (9.4-12.4); Monocytes Absolute Auto 0.6 X10*3/uL (0.1-1.2); Monocytes Percent Auto 8.8 % (2-11); Neutrophils Absolute Auto 3.6 x10*3/uL (2.0-8.3); Neutrophils Percent Auto 56.9 % (45-73); Platelet Count 194 X10*3/uL (160-400); Red Blood Count 3.92 X10*6/uL (4.60-5.80); Red Cell Distribution Width 13.3 % (11.0-16.0); White Blood Count 6.4 X10*3/uL (4.8-10.8)
[2024-04-13 11:03] LABS: Alanine Aminotransferase 8 U/L (0-40); Albumin Level 3.8 g/dL (3.5-5.0); Alkaline Phosphatase 87 U/L (39-117); Anion Gap 12 (12-20); Aspartate Amino Transferase 14 U/L (5-37); Bilirubin Total 0.4 mg/dL (0.0-1.0); Blood Urea Nitrogen 34 mg/dL (9-16); Calcium 9.5 mg/dL (8.4-10.2); Carbon Dioxide 26 mmol/L (22-29); Chloride 103 mmol/L (96-108); Cholesterol 153 mg/dL (<200); Estimated Glomerular Filt Rate 19; Glucose Fasting 107 mg/dL (60-99); HDL Cholesterol 48 mg/dL (>40); LDL Cholesterol Calculated 91 mg/dL (<100); Potassium 4.5 mmol/L (3.3-5.1); Sodium 136 mmol/L (135-145); Triglycerides 73 mg/dL (<150)
[2024-04-13 11:12] LABS: Prostate Specific Antigen Scr 2.05 ng/mL (<0.05-4.0)
[2024-04-13 11:21] LABS: TSH reflex Free T4 3.03 uIU/mL (0.32-4.0)
[2024-04-13 11:23] LABS: Appearance Urine Clear; Color Urine Yellow; Glucose Urine UA Negative (Negative); Leukocyte Esterase Urine Negative (Negative); Nitrite Urine Negative (Negative); PH 5.5 (5.0-9.0); Specific Gravity - Urine 1.015 (1.005-1.025); UMIC TRIGGER UA YES; Urine Blood Trace (Negative); Urine Ketones Negative (Negative); Urine Protein Trace mg/dL (Neg-Trace)
[2024-04-13 11:27] LABS: Bacteria Urine None Seen (None Seen); Hyaline Casts Urine 0-2 /LPF (0-2); RBC Urine 0-2 /HPF (0-2); Squamous Epithelial Cell Urine 0-2 /HPF (0-2); WBC Urine 0-5 /HPF (0-5)
== END 2024-04-13 08:38 | disposition home or self-care (01) ==
LOC: HO.HMGCLDS 08:37
PROVIDERS: PCP Family Medicine; Visit Provider Family Medicine
DX: Z00.00 Encounter for general adult medical examination without abnormal findings (principal); Z12.5 Encounter for screening for malignant neoplasm of prostate
CPT/HCPCS: 36415; 80053; 80061; 81001; 84153; 84443; 85025

== ENCOUNTER 2024-04-27 11:25 | Outpatient (AMB) | payer MEDICARE, SELFPAY ==
--- NOTE | 2024-04-27 11:48 | A.OFFVIS_ITS ---
Vital Signs 04/27/24 11:49 Height 6 ft Weight 168 lb 6.931 oz BMI 22.8 BP 118/66 Blood Pressure Location Rt brachial Position Sitting Pulse 50 Pulse Source Pulse Oximeter Pulse Oximetry (%) 97 Oxygen Delivery Method Room Air Intake Visit Reasons: 1 year f/u Intake Note: Jason presents in office today for a scheduled 1 year FUV. CC; Pt reports that he has remained stable over the course of the last year. Pt is having concerns regarding his nephrology and his life expectancy. Pt is convinced this is the last visit he will have with us due to CKD progression. Pt is not interested in dialysis and does not have a particular interest or belief in transplant possibility. Chiropractic Practice Manager Required: No Allergies No Known Allergies Allergy (Verified 04/27/24 11:48) HPI HPI 1 year f/u: Details: LAST VISIT Patient is here today for follow-up. Patient reports that he has been feeling well. Denies any dyspepsia, dysphagia or odynophagia. Takes pantoprazole 40 mg and his symptoms of acid reflux are completely suppressed. Patient was just diagnosed with stage IV CKD and was told to go on dialysis. Patient states that he will not go for dialysis he is otherwise feeling well. Patient denies any melena, hematochezia, unintentional weight loss or ribbon like stools. Patient had colonoscopy last year and colonoscopy to be repeated in 2027, sooner if clinically necessary. Patient reports that he has good appetite. No abdominal pain or discomfort. [facility] Medical History Left hand weakness Cervical spondylosis Arthritis Back pain Diverticulosis Hematuria Shoulder pain, bilateral Cervicalgia GERD (gastroesophageal reflux disease) Anxiety Depression Chronic kidney disease High blood pressure High cholesterol Surgical History History of surgical removal of vertebral body of cervical spine History of esophagogastroduodenoscopy (EGD) History of carpal tunnel release Hx of colonoscopy Hx of cystoscopy H/O aortic aneurysm repair H/O bone graft Family History Father Substance abuse Social History Housing: House Are you a primary health and social care teacher to a significant other at home: No Do you presently have visiting nurse or other home services: No Patient Tobacco Use Status: Current everyday Tobacco user Tobacco use type: Cigarette Cigarette Packs Per Day: 0.5 Cigarettes Per Day: 10 Years Smoked: 50 e-Cigarette/Vaping Use: Never Used Second Hand Smoke Exposure: No service: Yes Current occupational status: retired Current occupation: right hand Current occupational exposures/hazards: No Cognitive needs: No Hearing needs: No Vision needs: No Review of Systems Const Denies weight gain and Denies weight loss ENT Reports no additional complaints, Denies dysphagia and Denies odynophagia Card Reports no additional complaints Resp Reports no additional complaints GI Denies abdominal pain, Denies belching, Denies melena, Denies bloating, Denies change in bowel habits, Denies dysphagia, Denies excessive flatus, Denies dyspepsia, Denies heartburn, Denies diarrhea, Denies loose stools, Denies nausea, Denies odynophagia and Denies vomiting Reports no additional complaints Musc Reports no additional complaints Neuro Reports no additional complaints Psych Reports no additional complaints Endo Reports no additional complaints Physical Exam Vital Signs: Last Vital Signs Pulse 50 04/27/24 11:49 BP 118/66 04/27/24 11:49 Pulse Ox 97 04/27/24 11:49 Oxygen Delivery Method Room Air 04/27/24 11:49 BMI result Body Mass Index 22.8 Const General: healthy appearing, no acute distress and well developed Nutritional Appearance: well nourished Orientation/consciousness: patient oriented x3 Resp Effort & Inspection: normal respiratory effort, able to speak in complete sentences, no tracheal deviation and symmetric chest movement Auscultation: clear to auscultation bilaterally Cardio Rate: regular rate GI Inspection: Yes normal to inspection and No distended Palpation (GI): Soft to palpation, not firm, nontender and No hepatosplenomegaly present Auscultation: normal bowel sounds General: Yes no CVA tenderness Back/Spine/Pelvis Back: no CVA tenderness Skin General skin exam: elasticity normal, turgor normal and dry skin Neuro General: patient oriented x3 Psych Appearance: grossly normal Mental Status: mental status grossly normal Assessment & Plan Assessment & Plan (1) Diverticulosis: Code(s): K57.90 - Diverticulosis of intestine, part unspecified, without perforation or abscess without bleeding Category: Medical (2) GERD (gastroesophageal reflux disease): Code(s): K21.9 - Gastro-esophageal reflux disease without esophagitis Category: Medical Qualifiers: Esophagitis presence: esophagitis presence not specified Qualified Code(s): K21.9 - Gastro-esophageal reflux disease without esophagitis Plan Will decrease pantoprazole to 20 mg daily. Patient will return in 2 months so we can try to discontinue the medication if he feels well. Patient was encouraged to avoid dietary triggers and late night snacking. Patient was encouraged to stop smoking. Patient is agreeable to current plan of care and verbalizes understanding of instructions. He was given the opportunity to ask questions and all questions answered. Thank you for allowing me participate in his care Medications: New pantoprazole 20 mg PO DAILY 90 tabs 1RF Discontinued pantoprazole take one tablet half an hour before breakfast Discontinued Reason: Doctor's Order 40 mg PO DAILY 90 tabs 3RF K21.9 - Gastro-esophageal reflux disease without esophagitis Coding Level of Care Code Est Pt Level 3 (77033) Diagnoses Diverticulosis K57.90 Gastroesophageal reflux disease, unspecified whether esophagitis present K21.9 Esophagitis presence: esophagitis presence not specified Time Spent (min) 25 Comment 15 minutes spent with patient and additional 10 minutes spent reviewing his records
[2024-04-27 11:49] VITALS: BP 118/66; PULSE 50; O2SAT 97; BMI 22.8
== END 2024-04-27 13:09 | disposition home or self-care (01) ==
PROVIDERS: PCP Family Medicine; Visit Provider Nurse Practitioner Family
DX: K57.90 Diverticulosis of intestine, part unspecified, without perforation or abscess without bleeding (principal); K21.9 Gastro-esophageal reflux disease without esophagitis
CPT/HCPCS: 99213

== ENCOUNTER → 2024-04-27 11:25 | Outpatient (BNVA) | payer MEDICARE, SELFPAY | PROVIDERS: PCP Family Medicine; Visit Provider Nurse Practitioner Family | DX: K57.90 Diverticulosis of intestine, part unspecified, without perforation or abscess without bleeding (principal); K21.9 Gastro-esophageal reflux disease without esophagitis | CPT/HCPCS: 99212 ==

== ENCOUNTER 2024-05-13 14:31 | Outpatient (AMB) | payer MEDICARE, SELFPAY ==
--- NOTE | 2024-05-13 14:37 | A.OFFPC_ITS ---
Vital Signs 05/13/24 14:43 Height 6 ft 1 in Weight 171 lb 8 oz BMI 22.6 BP 130/70 Blood Pressure Location Lt brachial Position Sitting Respiration 10 L Pulse 55 Pulse Source Pulse Oximeter Temp 97.7 F Temp Source Tympanic Pulse Oximetry (%) 96 Oxygen Delivery Method Room Air Intake Visit Reasons: CPE?with?follow-up?labs?and?health?maintenance Intake Note: CPE Allergies No Known Allergies Allergy (Verified 05/13/24 14:39) Medication List - Last Reconciled 05/13/24 by Jesus Argueta MD aspirin (Adult Aspirin Regimen) 81 mg PO DAILY atorvastatin 40 mg PO DAILY 90 days baclofen 10 mg PO BEDTIME 90 days blood pressure monitor Automatic, Digital. Dx: I10. Daily As directed, 999 days/lifetime gabapentin 100 mg PO TID metoprolol succinate ER 50 mg PO BID 30 days pantoprazole 20 mg PO DAILY Tobacco use date assessed: 05/13/24 Fall risk assessment: No Falls in past year Last assessed Fall Risk: 05/13/24 Dental Screening Dental Screen Date: 05/13/24 Did you have a dental visit in the last 12 months?: No Did you have a dental problem in the last 6 months where you did not have access to dental care?: No Was dental information given to patient?: Patient has dentist HPI CPE?with?follow-up?labs?and?health?maintenance HPI Details 74 y/o male presents for an extended exa m with f/u labs and health maint. Labs drawn 04/13/24. Reviewed labs with pt. Mild anemia. Fasting glucose of 107. A1c today 5.8%. Creatinine level 3.26. Triglycerides 73. TC 153. LDL 91. HDL 48. PSA 2.05. Blood pressure today 130/70. Is on metoprolol 50mg b.i.d. He notes enalapril discontinued by nephrology. Ongoing complaints of back/neck pain. Pt continues to smoke. Smokes greater than 20 pack years. [facility] Medical History (Updated 05/13/24 @ 16:11 by Torey García) Left hand weakness Cervical spondylosis Arthritis Back pain Diverticulosis Hematuria Shoulder pain, bilateral Cervicalgia GERD (gastroesophageal reflux disease) Anxiety Depression Chronic kidney disease High blood pressure High cholesterol Surgical History History of surgical removal of vertebral body of cervical spine History of esophagogastroduodenoscopy (EGD) History of carpal tunnel release Hx of colonoscopy Hx of cystoscopy H/O aortic aneurysm repair H/O bone graft Family History Father Substance abuse Social History (Updated 05/13/24 @ 14:41 by Jany Burgos) Housing: House Are you a primary senior caregiver to a significant other at home: No Do you presently have visiting nurse or other home services: No Patient Tobacco Use Status: Current everyday Tobacco user Tobacco use type: Cigarette Cigarette Packs Per Day: 0.5 Cigarettes Per Day: 10 Years Smoked: 50 e-Cigarette/Vaping Use: Never Used Second Hand Smoke Exposure: No Substance Use Type: Marijuana service: Yes Current occupational status: retired Current occupation: right hand Current occupational exposures/hazards: No Cognitive needs: No Hearing needs: No Vision needs: No Questionnaire PHQ-9 Over the last 2 weeks, how often have you been bothered by any of the following problems? 1. Little interest or pleasure in doing things: several days 2. Feeling down, depressed, or hopeless: several days 3. Trouble falling or staying asleep, or sleeping too much: not at all 4. Feeling tired or having little energy: not at all 5. Poor appetite or overeating: several days 6. Feeling bad about yourself - or that you are a failure or have let yourself or your family down: not at all 7. Trouble concentrating on things, such as reading the newspaper or watching television: not at all 8. Moving or speaking so slowly that other people could have noticed. Or the opposite - being so fidgety or restless that you have been moving around a lot more than usual: not at all 9. Thoughts that you would be better off or of hurting yourself in some way: not at all Total score: 3 Depression Screening Interpretation: Negative Depression Screening Done: Yes 74084 - PHQ-9 Billing: Yes Source: Developed by Drs. Emmanuel Stafford, Demi Lozano, Lavelle Kerr and colleagues, with an educational emy from [employer]. Thrive Questionnaire Date Thrive assessed: 08/23/24 I am a: Patient What is your living situation today?: I have a steady place to live Within the past 12 months, did the food you bought not last and you didn't have the money to get more?: Never true Within the past 12 months, did you worry whether your food would run out before you got money to buy more?: Never true Do you have trouble paying for medicines?: No Do you have trouble getting transportation to medical appointments?: No Do you have trouble paying your heating and electricity bill?: No Do you have trouble taking care of your child, family member or friend?: No Do you have trouble with day-to-day activities such as bathing, preparing meals, shopping, managing finances, etc.?: No Are you currently unemployed and looking for a job?: No Are you interested in more education?: No Please select the resources that you would like help with: None Currently or been in a relationship where the following occur: No concerns reported THRIVE Score: 0 AUDIT C Alcohol Use Questionnaire (AUDIT-C) 1. How often do you have a drink containing alcohol?: Never 3. How often do you have six or more drinks on one occasion?: Never Total Score: 0 Score Reviewed/Action Taken: Yes RODRÍGUEZ-7 AMB Questionnaire RODRÍGUEZ-7 Date RODRÍGUEZ - 7 assessed: 05/13/24 Feeling nervous, anxious, or on edge: 1 = Several days Not being able to stop or control worryin = Not at all Worrying too much about different things: 0 = Not at all Trouble relaxin = Not at all Being so restless that it is hard to sit still: 0 = Not at all Becoming easily annoyed or irritable: 0 = Not at all Feeling afraid as if something awful might happen: 0 = Not at all Total RODRÍGUEZ-7 score (0-4 normal; 5-9 mild; 10-14 moderate; 15-21 severe): 1 Source: Developed by Drs. Emmanuel Stafford, Demi Lozano, Lavelle Kerr and colleagues, with an educational emy from [employer]. RODRÍGUEZ-7 Assessment Billing RODRÍGUEZ-7 Assessment Tool: RODRÍGUEZ-7 Assessment [id number] Review of Systems Const Denies chills, Denies fatigue, Denies fever(s), Denies headache(s) and Denies weakness Eyes Denies change in vision ENT Details: Neck pain Denies dizziness, Denies headache(s), Denies hearing loss, Denies nasal congestion, Denies sinus pain, Denies sinus pressure and Denies sore throat Card Denies chest pain, Denies lightheadedness, Denies dyspnea and Denies other (palpitations) Resp Denies cough, Denies dyspnea and Denies wheezing GI Denies abdominal pain, Denies melena, Denies hematochezia, Denies change in bowel habits, Denies dyspepsia and Denies nausea Denies hematuria and Denies dysuria Musc Denies abnormal gait, Reports back pain, Denies myalgias, Denies arthralgias, Denies numbness and Denies tingling Skin/Breast Denies rash, Denies unusual bruising and Denies wounds Neuro Denies abnormal gait, Denies dizziness, Denies headache(s), Denies memory loss, Denies numbness, Denies Sensory deficit (Neuro), Denies tingling and Denies weakness Psych Denies anxiety, Denies depression and Denies memory loss Endo Denies cold intolerance, Denies fatigue, Denies heat intolerance, Denies polydipsia and Denies polyuria Luis/Lymph Denies easy bleeding and Denies easy bruising Aller/Immun Denies wheezing Physical exam (Primary Care) Vital Signs: Last Vital Signs Temp 97.7 F 05/13/24 14:43 Pulse 55 05/13/24 14:43 Resp 10 L 05/13/24 14:43 BP 98/60 05/13/24 14:43 Pulse Ox 96 05/13/24 14:43 Oxygen Delivery Method Room Air 05/13/24 14:43 BMI result Body Mass Index 22.6 Tobacco/Smoking Status: Tobacco use Status Tobacco use date assessed 05/13/24 05/13/24 14:46 Patient Tobacco Use Status Current everyday Tobacco 05/13/24 14:41 Tobacco use type Cigarette 05/13/24 14:41 e-Cigarette/Vaping Use Never Used 05/13/24 14:41 PHQ-9: PHQ-9 Score PHQ-9: Total score 3 05/13/24 15:37 Depression Screening Interpretation: Negative Thrive Assessment: Date of Thrive Assessment Date Thrive assessed 05/13/24 05/13/24 14:46 Currently or been in a relationship where the following occur: No concerns reported Const General: no acute distress, well developed, alert and awake Nutritional Appearance: well nourished Orientation/consciousness: patient oriented x3 HENIN Head: Yes normocephalic and Yes atraumatic Ears: hearing grossly normal bilaterally and TM's normal bilaterally General nose exam: Normal external nose present and Normal nares present Mouth: Normal oral and palatal mucosa present and moist mucous membranes Teeth and gingiva: dentition normal Throat: Yes posterior oropharynx normal Eyes General: appearance normal, both eyes and all related structures Pupils: Equal, round and reactive pupils present and Pupil accommodation reflex normal EOM: EOMs intact bilaterally Neck Neck: Yes normal visual inspection, Yes no lymphadenopathy and Yes trachea midline Thyroid: Thyroid normal Carotids: no bruits Lymphatic: no lymphadenopathy noted Chest Chest palpation & inspection: normal inspection of the chest Resp Effort & Inspection: normal respiratory effort Auscultation: clear to auscultation bilaterally Cardio Rate: regular rate Rhythm: regular rhythm Heart sounds: S1 normal heart sound present, S2 normal heart sound present, no gallops, no murmurs and no rubs Bruits: no abdominal aortic bruits and no carotid bruits GI Palpation (GI): No Abdominal aortic bruit present, Soft to palpation, nontender, No hepatosplenomegaly present and No Rebound tenderness present Auscultation: normal bowel sounds General: Yes no CVA tenderness Back/Spine/Pelvis Back: no CVA tenderness Cervical Spine: cervical ROM normal and No Cervical spine tenderness Thoracic/Lumbar Spine: thoraco-lumbar ROM normal, No pain with thoraco-lumbar ROM, No thoracic spinal tenderness and No lumbar spinal tenderness Skin Lesions: no lesions Rashes: no rashes Trauma: no lacerations or abrasions Wounds: no wounds Nails: normal Neuro General: patient oriented x3 Cranial nerves: Yes Equal, round and reactive pupils present Cognition (Neuro): normal cognition Gait exam (Neuro): Normal gait present Motor exam (neuro): 5/5 motor strength present throughout Sensory Exam: No Sensory deficit (Neuro) Deep tendon reflexes (DTR's): Right patellar reflex intensity grade: 2+ and Left patellar reflex intensity grade: 2+ Extrem General: Yes normal to inspection and No edema Psych Appearance: grossly normal Affect: normal affect Attitude: cooperative Thought process: Normal thought process present Assessment and Plan Assessment & Plan (1) Essential hypertension: Code(s): I10 - Essential (primary) hypertension Plan: Blood?pressure?is?130/70. ?Controlled. Continue?current?medication (2) Anemia: Code(s): D64.9 - Anemia, unspecified Plan: Mild?anemia?likely?secondary?to?renal?failure Denies?any?blood?in?stools Will?continue?to?monitor (3) Pre-diabetes: Code(s): R73.03 - Prediabetes Plan: A1c?now?5.8%;?pre?diabetes. Encouraged?diet?low?in?sugars?and?starches Hydrate?well (4) Renal failure: Code(s): N19 - Unspecified kidney failure Plan: Chronic?renal?failure?a nd?creatinine?level?has?risen?significantly?despite?discontinuing?enalapril?by?N ephrology. May?be?acute?on?chronic?renal?failure?and?patient?says?he?drinks?very?little?benita er. Strongly?encouraged?incre ased?hydration?and?alternate?means?of?getting?in?water?such?as?sugar?free?Jell- O?and?popsicles?and?ice?cubes/chips (5) Back pain: Code(s): M54.9 - Dorsalgia, unspecified Plan: Ongoing?back?and?neck?pain Followed?by?pain?management?and?also?Neurology Workup?is?still?underway?by?Neurology Follow-up?with?above?specialists?as?recommended (6) Right trigger finger: Code(s): M65.30 - Trigger finger, unspecified finger Plan: Complaint?of?right?4th?finger?trigger?finger Ice/heat,?Aspercreme?with?lidocaine Finger?splint If?worsening,?will?refer?to?the?hand?specialist (7) Smoker: Code(s): F17.200 - Nicotine dependence, unspecified, uncomplicated Plan: Strongly?encouraged?weaning?and?cessation Patient?is?thinking?about?the (8) Screening for lung cancer: Code(s): Z12.2 - Encounter for screening for malignant neoplasm of respiratory organs Plan: Patient?has?been?smoking?greater?than?20?pack?year?and?continues?to?do?so Will?order?low-dose?CT?scan (9) Screening for colon cancer: Code(s): Z12.11 - Encounter for screening for malignant neoplasm of colon Plan: Followed[facility]by[facility]astro[facility]ology[facility]at[facility] Up-to-date Follow-up?with?GI?as?recommended (10) Screening for prostate cancer: Code(s): Z12.5 - Encounter for screening for malignant neoplasm of prostate Plan: PSA?is?within?normal?limits Will?continue?annual?screening (11) Adult general medical exam: Code(s): Z00.00 - Encounter for general adult medical examination without abnormal findings Plan: 74-year-old?male?presents?for?an?extended?exam Encouraged?healthy?diet?and?exercise Orders: Orders Comprehensive Met. Panel Today N19 - Unspecified kidney failure CT lung screening Today F17.200 - Nicotine dependence, unspecified, uncomplicated UA and rflx microscopic Today R82.89 - Other abnormal findings on cytological and histological examination of urine, Z00.00 - Encounter for general adult medical examination without abnormal findings Urine Cytology Today R82.89 - Other abnormal findings on cytological and histological examination of urine Complete Blood Count Auto Diff Today N19 - Unspecified kidney failure, Z00.00 - Encounter for general adult medical examination without abnormal findings Referrals Urology Referral R82.89 - Other abnormal findings on cytological and histological examination of urine Coding Level of Care Code Est Pt Level 4 (46416) Diagnoses Essential hypertension I10 Anemia D64.9 Pre-diabetes R73.03 Renal failure N19 Back pain M54.9 Right trigger finger M65.30 Smoker F17.200 Screening for lung cancer Z12.2 Screening for colon cancer Z12.11 Screening for prostate cancer Z12.5 Adult general medical exam Z00.00 Additional Codes RODRÍGUEZ-7 Assessment Billing - RODRÍGUEZ-7 Assessment Tool: RODRÍGUEZ-7 Assessment [id number] ([id number])
[2024-05-13 14:43] VITALS: BP 130/70; PULSE 55; RESP 10; TEMP 36.5; O2SAT 96; BMI 22.6
== END 2024-05-13 16:16 | disposition home or self-care (01) ==
PROVIDERS: PCP Family Medicine; Visit Provider Family Medicine
DX: I10 Essential (primary) hypertension (principal); D64.9 Anemia, unspecified; R73.03 Prediabetes; N19 Unspecified kidney failure; M54.9 Dorsalgia, unspecified; M65.351 Trigger finger, right little finger; F17.200 Nicotine dependence, unspecified, uncomplicated; Z12.2 Encounter for screening for malignant neoplasm of respiratory organs; Z12.11 Encounter for screening for malignant neoplasm of colon; Z12.5 Encounter for screening for malignant neoplasm of prostate; Z00.00 Encounter for general adult medical examination without abnormal findings
CPT/HCPCS: 99214

== ENCOUNTER 2024-05-16 08:17 | Outpatient (REF) | payer MEDICARE, SELFPAY ==
[2024-05-16 10:09] LABS: MANUAL DIFF FLAG NO
[2024-05-16 10:17] LABS: Basophils Absolute Auto 0.1 X10*3/uL (0.0-0.2); Basophils Percent Auto 2.1 % (0-2); Eosinophils Absolute Auto 0.6 X10*3/uL (0.0-0.4); Eosinophils Percent Auto 9.6 % (0-4); Hematocrit 35.8 % (42.0-52.0); Hemoglobin 12.1 g/dl (14.0-18.0); Imm Gran Abs Auto 0.04 X10*3/uL (0.00-0.03); Imm Gran Pct Auto 0.6 % (0.0-0.4); Lymphocytes Absolute Auto 1.4 X10*3/uL (1.2-4.9); Lymphocytes Percent Auto 21.9 % (20-40); Mean Corpuscular HGB Conc 33.8 g/dl (31.0-36.0); Mean Corpuscular Volume 91.8 fL (80.0-98.0); Mean Platelet Volume 9.7 fL (9.4-12.4); Monocytes Absolute Auto 0.5 X10*3/uL (0.1-1.2); Neutrophils Absolute Auto 3.8 x10*3/uL (2.0-8.3); Neutrophils Percent Auto 57.8 % (45-73); Platelet Count 214 X10*3/uL (160-400); Red Cell Distribution Width 13.6 % (11.0-16.0); White Blood Count 6.6 X10*3/uL (4.8-10.8)
[2024-05-16 11:34] LABS: Alanine Aminotransferase 9 U/L (0-40); Albumin Level 3.7 g/dL (3.5-5.0); Alkaline Phosphatase 77 U/L (39-117); Anion Gap 14 (12-20); Aspartate Amino Transferase 16 U/L (5-37); Bilirubin Total 0.7 mg/dL (0.0-1.0); Blood Urea Nitrogen 32 mg/dL (9-16); Calcium 9.2 mg/dL (8.4-10.2); Carbon Dioxide 23 mmol/L (22-29); Chloride 102 mmol/L (96-108); Estimated Glomerular Filt Rate 21; Glucose Random 104 mg/dL (60-115); Sodium 135 mmol/L (135-145); Total Protein 6.8 g/dL (6.5-8.0)
== END 2024-05-16 08:18 | disposition home or self-care (01) ==
LOC: HO.HMGCLDS 08:17
PROVIDERS: PCP Family Medicine; Visit Provider Family Medicine
DX: Z00.00 Encounter for general adult medical examination without abnormal findings (principal); N19 Unspecified kidney failure
CPT/HCPCS: 36415; 80053; 85025

== ENCOUNTER 2024-05-17 07:30 | Outpatient (REF) | payer MEDICARE, SELFPAY ==
[2024-05-17 10:47] LABS: Urine Cytology See Pathology rpt
[2024-05-17 10:52] LABS: Appearance Urine Clear; Color Urine Yellow; Glucose Urine UA Negative (Negative); Leukocyte Esterase Urine Negative (Negative); Nitrite Urine Negative (Negative); PH 5.5 (5.0-9.0); Urine Blood Negative (Negative); Urine Ketones Negative (Negative); Urine Protein Negative (Neg-Trace)
== END 2024-05-17 07:31 | disposition home or self-care (01) ==
LOC: HO.HMGCLNP 07:30
PROVIDERS: PCP Family Medicine; Visit Provider Family Medicine
DX: Z00.00 Encounter for general adult medical examination without abnormal findings (principal); R82.89 Other abnormal findings on cytological and histological examination of urine
CPT/HCPCS: 81003; 88112

== ENCOUNTER → 2024-06-22 13:51 | Outpatient (BNVA) | payer MEDICARE, SELFPAY | PROVIDERS: PCP Family Medicine; Visit Provider Family Medicine ==

== ENCOUNTER → 2024-06-22 13:51 | Outpatient (AMB) | payer MEDICARE, SELFPAY ==
--- NOTE | 2024-06-22 13:42 | A.OFFPC_ITS ---
Intake Visit Reasons: F/U CPE labs via telemedicine Intake Note: lab review Allergies No Known Allergies Allergy (Verified 06/22/24 13:42) Tobacco use date assessed: 05/13/24 Dental Screening Dental Screen Date: 05/13/24 HPI F/U CPE labs via telemedicine HPI Details 74 y/o male presents to f/u CPE-labs via telemedicine. Labs drawn 05/16/24. Reviewed labs with pt. Mild stable anemia. Creatinine level 2.95. Liver enzymes are fine. [facility] Medical History (Updated 06/22/24 @ 14:44 by Torey García) Left hand weakness Cervical spondylosis Arthritis Back pain Diverticulosis Hematuria Shoulder pain, bilateral Cervicalgia GERD (gastroesophageal reflux disease) Anxiety Depression Chronic kidney disease High blood pressure High cholesterol Surgical History History of surgical removal of vertebral body of cervical spine History of esophagogastroduodenoscopy (EGD) History of carpal tunnel release Hx of colonoscopy Hx of cystoscopy H/O aortic aneurysm repair H/O bone graft Family History Father Substance abuse Social History (Updated 05/13/24 @ 14:41 by Jany Burgos [facility]) Housing: House Are you a primary md do resident urgent care to a significant other at home: No Do you presently have visiting nurse or other home services: No Patient Tobacco Use Status: Current everyday Tobacco user Tobacco use type: Cigarette Cigarette Packs Per Day: 0.5 Cigarettes Per Day: 10 Years Smoked: 50 Packs Per Year: 25 Packs per year/per ci.00 e-Cigarette/Vaping Use: Never Used Second Hand Smoke Exposure: No Substance Use Type: Marijuana service: Yes Current occupational status: retired Current occupation: right hand Current occupational exposures/hazards: No Cognitive needs: No Hearing needs: No Vision needs: No Questionnaire Thrive Questionnaire Date Thrive assessed: 05/13/24 RODRÍGUEZ-7 AMB Questionnaire RODRÍGUEZ-7 Date RODRÍGUEZ - 7 assessed: 05/13/24 Source: Developed by Drs. Emmanuel Stafford, Demi Lozano, Lavelle Kerr and colleagues, with an educational emy from [employer]. Physical exam (Primary Care) Tobacco/Smoking Status: Tobacco use Status Tobacco use date assessed 05/13/24 06/22/24 13:44 Patient Tobacco Use Status Current everyday Tobacco 06/22/24 13:44 Tobacco use type Cigarette 06/22/24 13:44 e-Cigarette/Vaping Use Never Used 06/22/24 13:44 Thrive Assessment: Date of Thrive Assessment Date Thrive assessed 05/13/24 06/22/24 13:44 Telehealth Telehealth Telehealth Platform: Telephone Location of provider rendering services: practice address Location of patient: address on file Patient Identification confirmed using: Name, : Yes Telehealth method: voice only Patient verbally consented to treatment: Yes Patient verbally consented to billing insurance company: Yes Patient informed of any privacy concerns related to visit: Yes Minutes spent on Phone/Video with Pt.: 8 Coding Level of Care Code Tele Est Pt Level 2 (64898) Diagnoses Renal failure N19 Mild anemia D64.9 Hematuria, microscopic R31.29 Assessment & Plan Assessment & Plan (1) Renal failure: Code(s): N19 - Unspecified kidney failure Category: Medical Plan: Stage?III?chronic?renal?failure?and?recent?acute?on?chronic?failure. This?appears?to?be?improving Continue?to?follow-up?with?nephrology Control?blood?pressure Avoid?NSAIDs?and?salt/sodium (2) Mild anemia: Code(s): D64.9 - Anemia, unspecified Category: Medical Plan: Likely?secondary?to?renal?failure/anemia?of?chronic?disease This?is?stable We?will?continue?to?monitor?periodically (3) Hematuria, microscopic: Code(s): R31.29 - Other microscopic hematuria Category: Medical Plan: No?hematuria?on?last?urinalysis And?no?atypical?cells?on?last?urine?cytology He?saw?Urology?not?long?ago?and they?feel?that?this?is?benign?essential?microscopic?hematuria. They?will?continue?to?follow?him?and?he?has?an?upcoming?ultrasound.
== END ==
LOC: HO.HMCFM 13:51
PROVIDERS: PCP Family Medicine; Visit Provider Family Medicine
DX: N19 Unspecified kidney failure (principal); D64.9 Anemia, unspecified; R31.29 Other microscopic hematuria

== ENCOUNTER 2024-07-01 14:02 | Outpatient (AMB) | payer MEDICARE, SELFPAY ==
[2024-07-01 14:12] VITALS: BP 144/72; PULSE 56; O2SAT 98; BMI 23.0
--- NOTE | 2024-07-01 14:12 | MHC.OFFVIS ---
Vital Signs 07/01/24 14:12 Height 6 ft Weight 169 lb 5.04 oz BMI 23.0 BP 144/72 H Blood Pressure Location Lt brachial Position Sitting Pulse 56 Pulse Source Pulse Oximeter Pulse Oximetry (%) 98 Oxygen Delivery Method Room Air Intake Visit Reasons: 2 mos FUV. Intake Note: Jason presents in office today for a scheduled 2 mos FUV. CC: Pt was rx'd pantoprazole at his last visit. Pt also recently had labs drawn per orders via his PCP. Pt reports he has been doing OK with the new rx of pantoprazole. Pt also had MRI performed recently in addition to his lab work. 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 Patient will return in 2 months so we can try to discontinue the medication if he feels well. Patient was encouraged to avoid dietary triggers and late night snacking. Patient was encouraged to stop smoking. Patient is agreeable to current plan of care and verbalizes understanding of instructions. He was given the opportunity to ask questions and all questions answered. ? Thank you for allowing me participate in his care Medications New pantoprazole 20 mg PO DAILY 90 tabs 1RF Discontinued pantoprazole take one tablet half an hour before breakfast Discontinued Reason: Doctor's Order 40 mg PO DAILY 90 tabs 3RF K21.9 TODAY'S VISIT Patient is here today for follow-up. Patient reports that since the last time I have seen him he has been doing well. Patient reports that he is doing well on pantoprazole. Reports no symptoms. Would like to see if we can discontinue the medication. Patient denies any dyspepsia, dysphagia or odynophagia. Reports to be feeling well. Denies melena, hematochezia, unintentional weight loss or ribbon like stools. PFSH Medical History Left hand weakness Cervical spondylosis Arthritis Back pain Diverticulosis Hematuria Shoulder pain, bilateral Cervicalgia GERD (gastroesophageal reflux disease) Anxiety Depression Chronic kidney disease High blood pressure High cholesterol Surgical History History of surgical removal of vertebral body of cervical spine History of esophagogastroduodenoscopy (EGD) History of carpal tunnel release Hx of colonoscopy Hx of cystoscopy H/O aortic aneurysm repair H/O bone graft Family History Father Substance abuse Social History Housing: House Are you a primary director of health care marketing to a significant other at home: No Do you presently have visiting nurse or other home services: No Patient Tobacco Use Status: Current everyday Tobacco user Tobacco use type: Cigarette Cigarette Packs Per Day: 0.5 Cigarettes Per Day: 10 Years Smoked: 50 e-Cigarette/Vaping Use: Never Used Second Hand Smoke Exposure: No Substance Use Type: Marijuana service: Yes Current occupational status: retired Current occupation: right hand Current occupational exposures/hazards: No Cognitive needs: No Hearing needs: No Vision needs: No Review of Systems Const Denies weight gain and Denies weight loss ENT Reports no additional complaints, Denies dysphagia and Denies odynophagia Card Reports no additional complaints Resp Reports no additional complaints GI Denies abdominal pain, Denies belching, Denies melena, Denies bloating, Denies change in bowel habits, Denies dysphagia, Denies excessive flatus, Denies dyspepsia, Denies heartburn, Denies diarrhea, Denies loose stools, Denies nausea, Denies odynophagia and Denies vomiting Reports no additional complaints Musc Reports no additional complaints Neuro Reports no additional complaints Psych Reports no additional complaints Endo Reports no additional complaints Physical Exam Vital Signs: Last Vital Signs Pulse 56 07/01/24 14:12 BP 144/72 H 07/01/24 14:12 Pulse Ox 98 07/01/24 14:12 Oxygen Delivery Method Room Air 07/01/24 14:12 BMI result Body Mass Index 23.0 Const General: healthy appearing, no acute distress and well developed Nutritional Appearance: well nourished Orientation/consciousness: patient oriented x3 Resp Effort & Inspection: normal respiratory effort, able to speak in complete sentences, no tracheal deviation and symmetric chest movement Auscultation: clear to auscultation bilaterally Cardio Rate: regular rate GI Inspection: Yes normal to inspection and No distended Palpation (GI): Soft to palpation, not firm, nontender and No hepatosplenomegaly present Auscultation: normal bowel sounds General: Yes no CVA tenderness Back/Spine/Pelvis Back: no CVA tenderness Skin General skin exam: elasticity normal, turgor normal and dry skin Neuro General: patient oriented x3 Psych Appearance: grossly normal Mental Status: mental status grossly normal Assessment & Plan Assessment & Plan (1) GERD (gastroesophageal reflux disease): Code(s): K21.9 - Gastro-esophageal reflux disease without esophagitis Category: Medical Qualifiers: Esophagitis presence: esophagitis presence not specified Qualified Code(s): K21.9 - Gastro-esophageal reflux disease without esophagitis Plan Plan to discontinue the medication. Patient will slowly taper the medication. Follow-up in our office on as needed basis. Patient was instructed to call us if he will have any GI concerning symptoms. He is agreeable to this plan and verbalizes understanding of instructions. He was given the opportunity to ask questions and all questions answered. Thank you for allowing me to participate in his care Coding Level of Care Code Est Pt Level 3 (35977) Diagnoses Gastroesophageal reflux disease, unspecified whether esophagitis present K21.9 Esophagitis presence: esophagitis presence not specified Time Spent (min) 25 Comment 15 minutes spent with patient and additional 10 minutes spent reviewing his records
== END 2024-07-01 15:02 | disposition home or self-care (01) ==
PROVIDERS: PCP Family Medicine; Visit Provider Nurse Practitioner Family
DX: K21.9 Gastro-esophageal reflux disease without esophagitis (principal)
CPT/HCPCS: 99213

== ENCOUNTER → 2024-07-01 14:02 | Outpatient (BNVA) | payer MEDICARE, SELFPAY | PROVIDERS: PCP Family Medicine; Visit Provider Nurse Practitioner Family | DX: K21.9 Gastro-esophageal reflux disease without esophagitis (principal) | CPT/HCPCS: 99212 ==

== ENCOUNTER 2024-09-02 10:03 | Outpatient (AMB) | payer MEDICARE, SELFPAY ==
--- NOTE | 2024-09-02 07:47 | A.OFFVIS_ITS ---
Intake Visit Reasons: Current Smoker Allergies No Known Allergies Allergy (Verified 07/01/24 14:17) HPI HPI Current Smoker: Details: Initial visit for this 74yo smoker with a 45PYH. Patient started smoking at age 18 for 56 years at 1ppd. 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 . Reports smoking marijuana use. Denies second hand smoke exposure. 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 . Denies known family history of lung cancer. Denies personal history of cancers. Denies chest CT in last year. Has had abdominal CT - reports 1 functioning kidney. History AAA repair 2019. . Denies recent travel outside the [place]. Denies recent respiratory illness or recent hospitalization for respiratory issues. Denies testing positive for COVID. Admits receiving COVID Vaccine. . Denies fever, chills, new/worsening cough, hemoptysis, hoarseness or dysphagia. Denies significant chest pain, significant dyspnea or unintentional weight loss. Patient Lung Cancer Screening Questionnaire reviewed with patient by provider. . Shared Decision Making Completed. Patient meets criteria. Discussed in detail with patient, the risk vs benefit of LDCT screening. Patient consents to proceed with scan. Discussed smoking cessation. PFSH Medical History (Updated 09/02/24 @ 10:12 by Jada Hancock PA-C) Nicotine dependence, cigarettes, uncomplicated Left hand weakness Cervical spondylosis Arthritis Back pain Diverticulosis Hematuria Shoulder pain, bilateral Cervicalgia GERD (gastroesophageal reflux disease) Anxiety Depression Chronic kidney disease High blood pressure High cholesterol Surgical History (Updated 07/25/24 @ 13:56 by Jada Hancock PA-C) History of surgical removal of vertebral body of cervical spine History of esophagogastroduodenoscopy (EGD) History of carpal tunnel release Hx of colonoscopy Hx of cystoscopy H/O aortic aneurysm repair H/O bone graft Family History Father Substance abuse Social History (Updated 09/02/24 @ 10:08 by Jada Hancock PA-C) Housing: House Are you a primary pediatric critical care nurse to a significant other at home: No Do you presently have visiting nurse or other home services: No Patient Tobacco Use Status: Current everyday Tobacco user Tobacco use type: Cigarette Cigarette Packs Per Day: 0.5 Cigarettes Per Day: 10 Years Smoked: (onset 18yo, 1ppd x 56yrs, now 1/2ppd, 45pyh) e-Cigarette/Vaping Use: Never Used Second Hand Smoke Exposure: No Substance Use Type: Marijuana service: Yes Current occupational status: retired Current occupation: right hand Current occupational exposures/hazards: No Cognitive needs: No Hearing needs: No Vision needs: No Assessment & Plan Assessment & Plan (1) Nicotine dependence, cigarettes, uncomplicated: Comment: (onset 18yo, 1ppd x 56yrs, now 1/2ppd, 45pyh) Code(s): F17.210 - Nicotine dependence, cigarettes, uncomplicated Category: Medical Plan: - SDM visit completed today in office. - Patient meets criteria for LDCT for lung cancer screening purposes and is asymptomatic. - Smoking cessation counseling offered. Patients can always call [phone]. - Will arrange for a LDCT scan of the chest for screening purposes at [facility]. - Risks, benefits, and alternatives were discussed in detail and the patient agrees to proceed. - Risks discussed include but are not limited to: radiation exposure, anxiety during testing and while awaiting results, false negatives, false positives and possibility of additional intervention such as further imaging or surgical procedures for benign disease. - Benefits are obviously detection of lung cancer at an early stage which can lead to improved outcomes. - Discussed the importance of screening program compliance with adherence to yearly LDCT scan as scheduled - or sooner interval scans for personalized screening regimen. - Discussed follow up plan. Our office will send a letter discussing results and if needed set up phone call and office visit based on CT findings. - Patient educated on results categorization and the management decisions for suspicious findings potentially found on the screening LDCT scan. Any patient with a Lung RADS score of 3 or 4 will be reviewed by a multidisciplinary team at [facility] to form a plan of action in regards to scan findings. - If further work up is warranted for a suspicious lung finding this will be followed by the Lung Cancer Screening program in conjunction with the Thoracic Surgery Department at [facility]. - A copy of the office note and LDCT will be sent to the patient's PCP - as well as documentation on any associated further plans of care. - Incidental findings on LDCT are the PCP's responsibility. These findings are indicated with an S finding on the LDCT Assessment. A note discussing the findings will be sent to the PCP who is then responsible for further management. - All questions answered.? Coding Level of Care Code Lung Cancer Screening G0296 Diagnoses Nicotine dependence, cigarettes, uncomplicated F17.210
== END 2024-09-02 10:23 | disposition home or self-care (01) ==
PROVIDERS: PCP Family Medicine; Visit Provider Physician Assistant Medical
DX: F17.210 Nicotine dependence, cigarettes, uncomplicated (principal)
CPT/HCPCS: G0296

== ENCOUNTER 2024-09-02 10:17 | Outpatient (REF) | payer MEDICARE, SELFPAY | END 2024-09-02 10:18 | disposition home or self-care (01) | LOC: HO.CT 10:17 | PROVIDERS: PCP Family Medicine; Visit Provider Physician Assistant Medical | DX: Z12.2 Encounter for screening for malignant neoplasm of respiratory organs (principal); F17.210 Nicotine dependence, cigarettes, uncomplicated | CPT/HCPCS: 71271; G0296 ==

== ENCOUNTER → 2024-09-02 10:19 | Outpatient (BNV) | payer MEDICARE, SELFPAY | PROVIDERS: PCP Family Medicine; Visit Provider Radiology Diagnostic Radiology | DX: Z12.2 Encounter for screening for malignant neoplasm of respiratory organs (principal); Z87.891 Personal history of nicotine dependence | CPT/HCPCS: 71271 ==

== ENCOUNTER 2024-11-15 08:48 | Outpatient (REF) | payer MEDICARE, SELFPAY ==
--- OUTSIDE RECORDS SUMMARY | 2024-11-15 09:29 | XMS_ITS | Clinical Summary ---
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 Boom Operator Name Role Phone Jesus Argueta MD Primary Care Provider Allergies No known active allergies Medications atorvastatin (LIPITOR) 40 MG tablet Take 20 mg by mouth 1 (one) time each day Active aspirin (ST VONNIE) 81 MG EC tablet Take 81 mg by mouth 1 (one) time each day Active pantoprazole (PROTONIX) 40 MG EC tablet 04/30/2023 Active metoprolol succinate XL (TOPROL XL) 50 MG 24 hr tablet Take 50 mg by mouth 10/08/2023 Active Active Problems Problem Noted Date Diagnosed Date Chronic kidney disease 08/21/2022 Abdominal aortic aneurysm without rupture 2021 Essential (primary) hypertension 08/21/2022 Smoker 08/21/2022 Abnormal result of pulmonary function study 09/2021 Family History Medical History Relation Comments Intracerebral hemorrhage Father Diabetes Mother Relation Status Comments Father Mother Social History Tobacco Use Types Packs/Day Years Used Date Smoking Tobacco: Every Day Cigarettes Smokeless Tobacco: Never Tobacco Cessation:Ready to Q uit: Not Asked; Counseling Given: Not Answered Alcohol Use Standard Drinks/Week Comments Not Currently 0 (1 standard drink = 0.6 oz pur e alcohol) 1- 2 drinks Sex and Gender Information Value Date Recorded Sex Assigned at Not on file Legal Sex Male 4:34 PM EST Gender Identity Not on file Sexual Orientation Not on file Last Filed Vital Signs Vital Sign Reading Time Taken Comments Blood Pressure 122/64 05/20/2024 9:11 AM EDT Pulse 60 05/20/2024 9:11 AM EDT Temperature - - Respiratory Rate - - Oxygen Saturation 97% 11/16/2023 1:18 PM EST Inhaled Oxygen Concentration - - Weight 76.2 kg (168 lb) 05/20/2024 9:11 AM EDT Height - - Body Mass Index - - Plan of Treatment Upcoming Encounters Date Type Department Care Team (Late st Contact Info) Description 11/21/2024 1:45 PM EST Office Visit [facility] [address] [address] Nicholas Hester MD [address] [address] Health Maintenance Due Date Last Done Comments Pneumococcal Vaccine: 65+ Ye ars (1 of 2 - PCV) [birth year]09/1956 Colorectal Cancer Screening: Annual FOBT 02/09/2001 Colorectal Cancer Screening: Colonoscopy 02/09/2001 Colorectal Cancer Screening: Sigmoidoscopy 02/09/2001 Influenza Vaccine (#1) 2024 Hepatitis B Vaccine Aged Out No longe r eligible based on patient's age to complete this topic Insurance [facility] Care Teams Hydraulic Boom Operator Relationship Specialty Start Date End Date Jesus Argueta MD [address] [phone] PCP - General Family Medicine 07/30/22
[2024-11-15 10:24] LABS: Anion Gap 11 (12-20); Blood Urea Nitrogen 22 mg/dL (9-16); Calcium 9.1 mg/dL (8.4-10.2); Carbon Dioxide 26 mmol/L (22-29); Chloride 104 mmol/L (96-108); Estimated Glomerular Filt Rate 27; Potassium 4.3 mmol/L (3.3-5.1); Sodium 137 mmol/L (135-145)
[2024-11-15 10:46] LABS: Parathyroid Hormone Intact 85.1 pg/mL (8.7-77.1)
[2024-11-15 10:47] LABS: Vitamin D 25-OH Total 29.6 ng/mL (>30)
== END 2024-11-15 08:49 | disposition home or self-care (01) ==
LOC: HO.HMGCLDS 08:48
PROVIDERS: PCP Family Medicine; Visit Provider Internal Medicine Nephrology
DX: N18.30 Chronic kidney disease, stage 3 unspecified (principal)
CPT/HCPCS: 36415; 80051; 82306; 82310; 82565; 83970; 84520

== ENCOUNTER 2024-12-19 09:21 | Outpatient (AMB) | payer MEDICARE, SELFPAY ==
--- NOTE | 2024-12-19 09:30 | A.OFFPC_ITS ---
Vital Signs 12/19/24 09:33 Height 6 ft Weight 164 lb BMI 22.2 BP 120/60 Blood Pressure Location Lt brachial Position Sitting Respiration 14 Pulse 52 Pulse Source Pulse Oximeter Temp 98.6 F Temp Source Oral Pulse Oximetry (%) 97 Oxygen Delivery Method Room Air Intake Visit Reasons: f/u hypertension, chronic conditions Intake Note: patient is scheduled for htn and chronic condition follow up Attendant Arcade Required: No Allergies No Known Allergies Allergy (Verified 12/19/24 09:32) Medication List - Last Reconciled 12/19/24 by Jesus Argueta MD aspirin (Adult Aspirin Regimen) 81 mg PO DAILY atorvastatin 40 mg PO DAILY 90 days baclofen 10 mg PO BEDTIME 90 days blood pressure monitor Automatic, Digital. Dx: I10. Daily As directed, 999 days/lifetime gabapentin 100 mg PO TID metoprolol succinate ER 50 mg PO BID 30 days pantoprazole 20 mg PO DAILY Tobacco use date assessed: 05/13/24 Dental Screening Dental Screen Date: 05/13/24 HPI f/u hypertension, chronic conditions HPI Details 74 y/o male presents to f/u HTN, chronic conditions. Blood pressure today 120/60, 52p. He is on metoprolol 50mg b.i.d. Follows up with nephrology for renal failure. Notes L hand stiffness but not numbness. HPI Comments History of Present Illness Details Documentation assistance for Jesus Argueta MD, was provided by Torey García,? Performance Improvement Specialist on 12/19/2024 at 9:48 AM BON. I, Dr. Argueta, have read, observed, and verified documentation. ?? PFS Medical History (Updated 12/19/24 @ 09:57 by Torey García) Nicotine dependence, cigarettes, uncomplicated Left hand weakness Cervical spondylosis Arthritis Back pain Diverticulosis Hematuria Shoulder pain, bilateral Cervicalgia GERD (gastroesophageal reflux disease) Anxiety Depression Chronic kidney disease High blood pressure High cholesterol Surgical History (Updated 07/25/24 @ 13:56 by Jada Hancock PA-C) History of surgical removal of vertebral body of cervical spine History of esophagogastroduodenoscopy (EGD) History of carpal tunnel release Hx of colonoscopy Hx of cystoscopy H/O aortic aneurysm repair H/O bone graft Family History Father Substance abuse Social History (Updated 09/02/24 @ 10:08 by Jada Hancock PA-C) Housing: House Are you a primary day care aide to a significant other at home: No Do you presently have visiting nurse or other home services: No Patient Tobacco Use Status: Current everyday Tobacco user Tobacco use type: Cigarette Cigarette Packs Per Day: 0.5 Cigarettes Per Day: 10 Years Smoked: (onset 18yo, 1ppd x 56yrs, now 1/2ppd, 45pyh) e-Cigarette/Vaping Use: Never Used Second Hand Smoke Exposure: No Substance Use Type: Marijuana service: Yes Current occupational status: retired Current occupation: right hand Current occupational exposures/hazards: No Cognitive needs: No Hearing needs: No Vision needs: No Questionnaire Thrive Questionnaire Date Thrive assessed: 11/24/24 I am a: Patient What is your living situation today?: I have a steady place to live Within the past 12 months, did the food you bought not last and you didn't have the money to get more?: Never true Within the past 12 months, did you worry whether your food would run out before you got money to buy more?: Never true Do you have trouble paying for medicines?: No Do you have trouble getting transportation to medical appointments?: No Do you have trouble paying your heating and electricity bill?: No Do you have trouble taking care of your child, family member or friend?: No Do you have trouble with day-to-day activities such as bathing, preparing meals, shopping, managing finances, etc.?: No Are you currently unemployed and looking for a job?: No Are you interested in more education?: No Please select the resources that you would like help with: None Currently or been in a relationship where the following occur: No concerns reported THRIVE Score: 0 RODRÍGUEZ-7 AMB Questionnaire RODRÍGUEZ-7 Date RODRGÍUEZ - 7 assessed: 05/13/24 Source: Developed by Drs. Emmanuel Stafford, Demi Lozano, Lavelle Kerr and colleagues, with an educational emy from [employer]. Review of Systems Const Denies chills, Denies fatigue, Denies fever(s), Denies headache(s) and Denies weakness ENT Denies dizziness and Denies headache(s) Card Denies dyspnea Resp Denies cough, Denies dyspnea, Denies wheezing and Denies other (shortness of breath) Musc Denies numbness and Denies tingling Neuro Denies dizziness, Denies headache(s), Denies numbness, Denies tingling and Denies weakness Psych Denies anxiety and Denies depression Endo Denies fatigue Aller/Immun Denies wheezing Physical exam (Primary Care) Vital Signs: Last Vital Signs Temp 98.6 F 12/19/24 09:33 Pulse 52 12/19/24 09:33 Resp 14 12/19/24 09:33 BP 120/60 12/19/24 09:33 Pulse Ox 97 12/19/24 09:33 Oxygen Delivery Method Room Air 12/19/24 09:33 BMI result Body Mass Index 22.2 Tobacco/Smoking Status: Tobacco use Status Tobacco use date assessed 05/13/24 12/19/24 09:36 Patient Tobacco Use Status Current everyday Tobacco 12/19/24 09:36 Tobacco use type Cigarette 12/19/24 09:36 e-Cigarette/Vaping Use Never Used 12/19/24 09:36 Thrive Assessment: Date of Thrive Assessment Date Thrive assessed 11/24/24 12/19/24 09:36 Currently or been in a relationship where the following occur: No concerns reported Const General: well developed; No acute distress Nutritional Appearance: well nourished Orientation/consciousness: patient oriented x3 HENMT Head: Yes normocephalic and Yes atraumatic Eyes General: appearance normal, both eyes and all related structures Pupils: Equal, round and reactive pupils present EOM: EOMs intact bilaterally Resp Effort & Inspection: normal respiratory effort Auscultation: clear to auscultation bilaterally Cardio Rate: regular rate Rhythm: regular rhythm Heart sounds: S1 normal heart sound present, S2 normal heart sound present, no gallops, no murmurs and no rubs Neuro General: patient oriented x3 and gait normal Cranial nerves: Yes Equal, round and reactive pupils present Psych Affect: normal affect Coding Level of Care Code Est Pt Level 4 (40285) Diagnoses Left hand weakness R29.898 Essential hypertension I10 Renal failure N19 Nicotine dependence, cigarettes, uncomplicated F17.210 Screening for lung cancer Z12.2 Assessment & Plan Assessment & Plan (1) Left hand weakness: Comment: discomfort ? RSD Code(s): R29.898 - Other symptoms and signs involving the musculoskeletal system Category: Medical Plan: Patient?has?had?left?hand?numbness?and?now?also?has?some?weakness.??History?of?c ervical?surgeries?and?radicular?symptoms. Has?tried?some?physical?therapy. Dropping?things?and?seems?to?be?weaker. Currently,?patient?wants?to avoid?additional?surgery Will?refer?him?to?physiatry (2) Essential hypertension: Code(s): I10 - Essential (primary) hypertension Category: Medical Plan: Blood?pressure?is?well?controlled.??Goal?is?less?than?130/80 Continue?current?medication (3) Renal failure: Code(s): N19 - Unspecified kidney failure Category: Medical Plan: Mild, stable per his director of orthopedics He remains off ACEi as there has been some concern of compromised efferent arteriolar pressure. Microalbuminuria negative. BP controlled Avoids NSAIDS (4) Nicotine dependence, cigarettes, uncomplicated: Comment: (onset 18yo, 1ppd x 56yrs, now 1/2ppd, 45pyh) Code(s): F17.210 - Nicotine dependence, cigarettes, uncomplicated Category: Medical Plan: Patient?is?working?on?weaning?off?of?cigarettes. He?says?he?lives?alone?but?is?not?inhaling?any Longer. Encouraged?completing?cessation (5) Screening for lung cancer: Code(s): Z12.2 - Encounter for screening for malignant neoplasm of respiratory organs Category: Medical Plan: Low-dose?CT?scan?shows?stable?nodule Recommends?annual?screening Orders: Referrals Physiatry Referral M50.90 - Cervical disc disorder, unspecified, unspecified cervical region, R20.2 - Paresthesia of skin, R29.898 - Other symptoms and signs involving the musculoskeletal system
[2024-12-19 09:33] VITALS: BP 120/60; PULSE 52; RESP 14; TEMP 37; O2SAT 97; BMI 22.2
== END 2024-12-19 10:08 | disposition home or self-care (01) ==
LOC: HO.HMCFM 09:22
PROVIDERS: PCP Family Medicine; Visit Provider Family Medicine
DX: R29.898 Other symptoms and signs involving the musculoskeletal system (principal); I10 Essential (primary) hypertension; N19 Unspecified kidney failure; F17.210 Nicotine dependence, cigarettes, uncomplicated; Z12.2 Encounter for screening for malignant neoplasm of respiratory organs

== ENCOUNTER → 2024-12-19 09:21 | Outpatient (BNVA) | payer MEDICARE, SELFPAY | PROVIDERS: PCP Family Medicine; Visit Provider Family Medicine | DX: R29.898 Other symptoms and signs involving the musculoskeletal system (principal); I10 Essential (primary) hypertension; N19 Unspecified kidney failure; F17.210 Nicotine dependence, cigarettes, uncomplicated; Z71.6 Tobacco abuse counseling | CPT/HCPCS: 99212 ==

== ENCOUNTER 2025-03-22 09:13 | Outpatient (AMB) | payer MEDICARE, SELFPAY ==
--- NOTE | 2025-03-22 09:22 | A.OFFPC_ITS ---
Vital Signs 03/22/25 09:25 Height 6 ft Weight 158 lb 4 oz BMI 21.5 BP 120/60 Blood Pressure Location Lt brachial Position Sitting Respiration 14 Pulse 62 Pulse Source Pulse Oximeter Temp 98.6 F Temp Source Oral Pulse Oximetry (%) 97 Oxygen Delivery Method Room Air Intake Visit Reasons: f/u HTN, chronic conditions Intake Note: patient is scheduled for htn and chronic conditions follow up w/pcp Refractory Mixer Required: No Allergies No Known Allergies Allergy (Verified 03/22/25 09:24) Medication List - Last Reconciled 03/22/25 by Jesus Argueta MD aspirin (Adult Aspirin Regimen) 81 mg PO DAILY atorvastatin 40 mg PO DAILY 90 days baclofen 10 mg PO BEDTIME 90 days blood pressure monitor Automatic, Digital. Dx: I10. Daily As directed, 999 days/lifetime metoprolol succinate ER 50 mg PO BID 30 days pantoprazole 20 mg PO DAILY Tobacco use date assessed: 05/13/24 Dental Screening Dental Screen Date: 05/13/24 HPI f/u HTN, chronic conditions HPI Details 75 y/o male presents to f/u HTN, chronic conditions. Following up on L hand numbness and weakness. Had referred him to physiatry. Blood pressure today 120/60, 62p. He is on metoprolol 50mg b.i.d. L hand weakness neither worsening nor improving. He notes he gets flares of numbness/weakness. He did not accept physiatry appt. as it was in April. HPI Comments History of Present Illness Details Documentation assistance for Jesus Argueta MD, was provided by Torey García,? Technical Customer Support Specialist on 03/22/2025 at 9:59 AM BON. I, Dr. Argueta, have read, observed, and verified documentation. ?? [facility] Medical History (Updated 12/19/24 @ 09:57 by Torey García) Nicotine dependence, cigarettes, uncomplicated Left hand weakness Cervical spondylosis Arthritis Back pain Diverticulosis Hematuria Shoulder pain, bilateral Cervicalgia GERD (gastroesophageal reflux disease) Anxiety Depression Chronic kidney disease High blood pressure High cholesterol Surgical History (Updated 07/25/24 @ 13:56 by Jada Hancock PA-C) History of surgical removal of vertebral body of cervical spine History of esophagogastroduodenoscopy (EGD) History of carpal tunnel release Hx of colonoscopy Hx of cystoscopy H/O aortic aneurysm repair H/O bone graft Family History Father Substance abuse Social History (Updated 09/02/24 @ 10:08 by Jada Hancock PA-C) Housing: House Are you a primary home visit field care manager to a significant other at home: No Do you presently have visiting nurse or other home services: No Patient Tobacco Use Status: Current everyday Tobacco user Tobacco use type: Cigarette Cigarette Packs Per Day: 0.5 Cigarettes Per Day: 10 Years Smoked: (onset 18yo, 1ppd x 56yrs, now 1/2ppd, 45pyh) e-Cigarette/Vaping Use: Never Used Second Hand Smoke Exposure: No Substance Use Type: Marijuana service: Yes Current occupational status: retired Current occupation: right hand Current occupational exposures/hazards: No Cognitive needs: No Hearing needs: No Vision needs: No Questionnaire Thrive Questionnaire Date Thrive assessed: 11/24/24 I am a: Patient What is your living situation today?: I have a steady place to live Within the past 12 months, did the food you bought not last and you didn't have the money to get more?: Never true Within the past 12 months, did you worry whether your food would run out before you got money to buy more?: Never true Do you have trouble paying for medicines?: No Do you have trouble getting transportation to medical appointments?: No Do you have trouble paying your heating and electricity bill?: No Do you have trouble taking care of your child, family member or friend?: No Do you have trouble with day-to-day activities such as bathing, preparing meals, shopping, managing finances, etc.?: No Are you currently unemployed and looking for a job?: No Are you interested in more education?: No Please select the resources that you would like help with: None Currently or been in a relationship where the following occur: No concerns reported THRIVE Score: 0 RORDÍGUEZ-7 AMB Questionnaire RODRÍGUEZ-7 Date RODRÍGUEZ - 7 assessed: 05/13/24 Source: Developed by Drs. Emmanuel Stafford, Demi Lozano, Lavelle Kerr and colleagues, with an educational emy from [employer]. Review of Systems Const Denies chills, Denies fatigue, Denies fever(s), Denies headache(s) and Denies weakness ENT Denies dizziness and Denies headache(s) Card Denies dyspnea Resp Denies cough, Denies dyspnea, Denies wheezing and Denies other (shortness of breath) Musc Denies numbness and Denies tingling Neuro Denies dizziness, Denies headache(s), Denies numbness, Denies tingling and Denies weakness Psych Denies anxiety and Denies depression Endo Denies fatigue Aller/Immun Denies wheezing Physical exam (Primary Care) Vital Signs: Last Vital Signs Temp 98.6 F 03/22/25 09:25 Pulse 62 03/22/25 09:25 Resp 14 03/22/25 09:25 BP 120/60 03/22/25 09:25 Pulse Ox 97 03/22/25 09:25 Oxygen Delivery Method Room Air 03/22/25 09:25 BMI result Body Mass Index 21.5 Tobacco/Smoking Status: Tobacco use Status Tobacco use date assessed 05/13/24 03/22/25 09:23 Patient Tobacco Use Status Current everyday Tobacco 03/22/25 09:23 Tobacco use type Cigarette 03/22/25 09:23 e-Cigarette/Vaping Use Never Used 03/22/25 09:23 Thrive Assessment: Date of Thrive Assessment Date Thrive assessed 11/24/24 03/22/25 09:23 Currently or been in a relationship where the following occur: No concerns reported Const General: well developed; No acute distress Nutritional Appearance: well nourished Orientation/consciousness: patient oriented x3 HENMT Head: Yes normocephalic and Yes atraumatic Eyes General: appearance normal, both eyes and all related structures Pupils: Equal, round and reactive pupils present EOM: EOMs intact bilaterally Resp Effort & Inspection: normal respiratory effort Auscultation: clear to auscultation bilaterally Cardio Rate: regular rate Rhythm: regular rhythm Heart sounds: S1 normal heart sound present, S2 normal heart sound present, no gallops, no murmurs and no rubs Neuro General: patient oriented x3 and gait normal Cranial nerves: Yes Equal, round and reactive pupils present Psych Affect: normal affect Coding Level of Care Code Est Pt Level 4 (72742) Diagnoses Essential hypertension I10 Left hand weakness R29.898 Renal failure N19 Assessment & Plan Assessment & Plan (1) Essential hypertension: Code(s): I10 - Essential (primary) hypertension Category: Medical Plan: Blood?pressure?is?well?controlled.??Goal?is?less?than?140/90 Continue?current?medication (2) Left hand weakness: Comment: discomfort ? RSD Code(s): R29.898 - Other symptoms and signs involving the musculoskeletal system Category: Medical Plan: Left?hand?weakness?which?appears?stable?today. Not?currently?worsening?but?not?improving. He?gets?flares?of?numbness?and?weakness. Had?referred?him?to?physiatry?bu t?he?did?not?accept?the?appointment?because?it?was?in?April. He?will?use?ice?and?heat?and exercises?he?has?learned?from?physical?therapy?in?the?past. Schedule?appointment?with?physiatry (3) Renal failure: Code(s): N19 - Unspecified kidney failure Category: Medical Plan: Reviewed?prior?lab?work?with?patient?and?this?appears?to?be?stable?and?improved? from?last?year He?is?followed?by?Dr. 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 Orders: Orders Basic Metabolic Panel Today N19 - Unspecified kidney failure, Z00.00 - Encounter for general adult medical examination without abnormal findings
--- OUTSIDE RECORDS SUMMARY | 2025-03-22 09:23 | XMS_ITS | Clinical Summary ---
Author Organization [facility] Address [address] [phone] Phone Care Team Providers Care Hospital Coder Name Role Phone Jesus Argueta MD Primary [...] Take 50 mg by mouth 10/08/2023 Active Dapagliflozin Propanediol 5 MG tablet Take 5 mg by mouth 1 (one) time each day in the morning 30 tablet 5 11/21/2024 Active Active Problems Problem Noted Date Diagnosed [...] Sign Reading Time Taken Comments Blood Pressure 130/66 11/21/2024 1:57 PM EST Pulse 69 11/21/2024 1:57 PM EST Temperature - - Respiratory Rate - - Oxygen Saturation 97% 11/16/2023 1:18 PM EST Inhaled Oxygen Concentration - - Weight 73.5 kg (162 lb) 11/21/2024 1:57 PM EST Height - - Body Mass Index - - Plan of Treatment Upcoming Encounters Date Type Department Care Team (Late st Contact Info) Description 05/25/2025 1:00 PM EDT Office Visit [facility]. [address] [phone] Nicholas Hester MD [address] [phone] Health Maintenance Due Date Last Done Comments Pneumococcal Vaccine: 50+ Ye ars (1 of 2 - PCV) 02/09/1971 Colorectal Cancer Screening: Annual FOBT 02/09/2001 Colorectal Cancer Screening: Colonoscopy 02/09/2001 Colorectal Cancer Screening: Sigmoidoscopy 02/09/2001 Influenza Vaccine (Season Ended) 2025 Hepatitis B Vaccine Aged Out No longe r eligible based on patient's age to complete this topic Insurance [facility] Care Teams Hospital Coder Relationship Specialty Start Date End Date Jesus Argueta MD [address] [address] PCP - General Family Medicine 07/30/22
[2025-03-22 09:25] VITALS: BP 120/60; PULSE 62; RESP 14; TEMP 37; O2SAT 97; BMI 21.5
== END 2025-03-22 10:00 | disposition home or self-care (01) ==
LOC: HO.HMCFM 09:14
PROVIDERS: PCP Family Medicine; Visit Provider Family Medicine
DX: I10 Essential (primary) hypertension (principal); R29.898 Other symptoms and signs involving the musculoskeletal system; N19 Unspecified kidney failure

== ENCOUNTER → 2025-03-22 09:13 | Outpatient (BNVA) | payer MEDICARE, SELFPAY | PROVIDERS: PCP Family Medicine; Visit Provider Family Medicine | DX: I10 Essential (primary) hypertension (principal); R20.0 Anesthesia of skin; M62.81 Muscle weakness (generalized); N19 Unspecified kidney failure | CPT/HCPCS: 99212 ==

== ENCOUNTER 2025-05-18 08:30 | Outpatient (REF) | payer MEDICARE, SELFPAY ==
--- OUTSIDE RECORDS SUMMARY | 2025-05-18 09:09 | XMS_ITS | Clinical Summary ---
Author Organization [facility] Address [address] [address] Phone Care Team Providers Care Aircraft Cleaning Supervisor Name Role Phone Jesus Argueta MD Primary [...] Office Visit [facility] P. [address] [phone] Nicholas Hester MD [address] [phone] Health Maintenance Due Date Last Done Comments Pneumococcal Vaccine: 50+ Ye ars (1 of 2 - PCV) 02/09/1971 Colorectal Cancer Screening: Annual FOBT 02/09/2001 Colorectal Cancer Screening: Colonoscopy 02/09/2001 Colorectal Cancer Screening: Sigmoidoscopy 02/09/2001 Influenza Vaccine (#1) 2025 Hepatitis B Vaccine Aged Out No longe r eligible based on patient's age to complete this topic Insurance [facility] Care Teams Aircraft Cleaning Supervisor Relationship Specialty Start Date End Date Jesus Argueta MD [address] [address] PCP - General Family Medicine 07/30/22
[2025-05-18 10:45] LABS: Anion Gap 11 (12-20); Blood Urea Nitrogen 23 mg/dL (9-16); Calcium 9.2 mg/dL (8.4-10.2); Carbon Dioxide 30 mmol/L (22-29); Chloride 103 mmol/L (96-108); Estimated Glomerular Filt Rate 28; Potassium 4.8 mmol/L (3.3-5.1); Sodium 139 mmol/L (135-145)
[2025-05-18 11:02] LABS: Microalbum/Creatinine Ratio Ur 7.1 ug/mg cr (<30)
== END 2025-05-18 08:31 | disposition home or self-care (01) ==
LOC: HO.HMGCLDS 08:30
PROVIDERS: PCP Family Medicine; Visit Provider Internal Medicine Nephrology
DX: N18.30 Chronic kidney disease, stage 3 unspecified (principal)
CPT/HCPCS: 36415; 80051; 82043; 82310; 82565; 82570; 84520

== ENCOUNTER 2025-07-18 08:52 | Outpatient (REF) | payer MEDICARE, SELFPAY ==
[2025-07-18 10:18] LABS: Anion Gap 11 (12-20); Blood Urea Nitrogen 23 mg/dL (9-16); Calcium 8.8 mg/dL (8.4-10.2); Carbon Dioxide 28 mmol/L (22-29); Chloride 102 mmol/L (96-108); Estimated Glomerular Filt Rate 30; Potassium 4.6 mmol/L (3.3-5.1); Sodium 136 mmol/L (135-145)
== END 2025-07-18 08:53 | disposition home or self-care (01) ==
LOC: HO.HMGCLDS 08:52
PROVIDERS: PCP Family Medicine; Visit Provider Family Medicine
DX: Z00.00 Encounter for general adult medical examination without abnormal findings (principal); N19 Unspecified kidney failure
CPT/HCPCS: 36415; 80048

== ENCOUNTER 2025-07-26 09:14 | Outpatient (AMB) | payer MEDICARE, SELFPAY ==
--- NOTE | 2025-07-26 09:21 | A.OFFPC_ITS ---
Vital Signs 07/26/25 09:30 Height 6 ft Weight 156 lb 2 oz BMI 21.2 BP 110/54 L Blood Pressure Location Lt brachial Position Sitting Respiration 12 Pulse 57 Pulse Source Pulse Oximeter Temp 98.2 F Temp Source Oral Pulse Oximetry (%) 97 Oxygen Delivery Method Room Air Intake Visit Reasons: f/u HTN, labs Intake Note: patient is scheduled to review labs with pcp labs are completed Quality Nurse Required: No Allergies No Known Allergies Allergy (Verified 07/26/25 09:29) Medication List - Last Reconciled 07/26/25 by Jesus Argueta MD aspirin (Adult Aspirin Regimen) 81 mg PO DAILY atorvastatin 40 mg PO DAILY 90 days baclofen 10 mg PO BEDTIME 90 days blood pressure monitor Automatic, Digital. Dx: I10. Daily As directed, 999 days/lifetime metoprolol succinate ER 50 mg PO BID 30 days Tobacco use date assessed: 05/13/24 Dental Screening Dental Screen Date: 05/13/24 HPI f/u HTN, labs HPI Details 75 y/o male presents to f/u HTN, labs. Labs drawn 07/18/25. Reviewed labs with pt. Creatinine improved from 2.33 to 2.17. Blood pressure today 110/54, 57p. He is on metoprolol 50mg b.i.d. Hx of abnormal urine cytology. [facility] Medical History (Updated 12/19/24 @ 09:57 by Torey García) Nicotine dependence, cigarettes, uncomplicated Left hand weakness Cervical spondylosis Arthritis Back pain Diverticulosis Hematuria Shoulder pain, bilateral Cervicalgia GERD (gastroesophageal reflux disease) Anxiety Depression Chronic kidney disease High blood pressure High cholesterol Surgical History (Updated 07/25/24 @ 13:56 by Jada Hancock PA-C) History of surgical removal of vertebral body of cervical spine History of esophagogastroduodenoscopy (EGD) History of carpal tunnel release Hx of colonoscopy Hx of cystoscopy H/O aortic aneurysm repair H/O bone graft Family History Father Substance abuse Social History (Updated 09/02/24 @ 10:08 by Jada Hancock PA-C) Housing: House Are you a primary outdoor emergency care technician to a significant other at home: No Do you presently have visiting nurse or other home services: No Patient Tobacco Use Status: Current everyday Tobacco user Tobacco use type: Cigarette Cigarette Packs Per Day: 0.5 Cigarettes Per Day: 10 Years Smoked: (onset 18yo, 1ppd x 56yrs, now 1/2ppd, 45pyh) e-Cigarette/Vaping Use: Never Used Second Hand Smoke Exposure: No Substance Use Type: Marijuana service: Yes Current occupational status: retired Current occupation: right hand Current occupational exposures/hazards: No Cognitive needs: No Hearing needs: No Vision needs: No Questionnaire Thrive Questionnaire Date Thrive assessed: 11/24/24 I am a: Patient What is your living situation today?: I have a steady place to live Within the past 12 months, did the food you bought not last and you didn't have the money to get more?: Never true Within the past 12 months, did you worry whether your food would run out before you got money to buy more?: Never true Do you have trouble paying for medicines?: No Do you have trouble getting transportation to medical appointments?: No Do you have trouble paying your heating and electricity bill?: No Do you have trouble taking care of your child, family member or friend?: No Do you have trouble with day-to-day activities such as bathing, preparing meals, shopping, managing finances, etc.?: No Are you currently unemployed and looking for a job?: No Are you interested in more education?: No Please select the resources that you would like help with: None Currently or been in a relationship where the following occur: No concerns reported THRIVE Score: 0 RODRÍGUEZ-7 AMB Questionnaire RODRÍGUEZ-7 Date RODRÍGUEZ - 7 assessed: 05/13/24 Source: Developed by Drs. Emmanuel Stafford, Demi Lozano, Lavelle Kerr and colleagues, with an educational emy from [employer]. Review of Systems Const Denies chills, Denies fatigue, Denies fever(s), Denies headache(s) and Denies weakness ENT Denies dizziness and Denies headache(s) Card Denies dyspnea Resp Denies cough, Denies dyspnea, Denies wheezing and Denies other (shortness of breath) Musc Denies numbness and Denies tingling Neuro Denies dizziness, Denies headache(s), Denies numbness, Denies tingling and Denies weakness Psych Denies anxiety and Denies depression Endo Denies fatigue Aller/Immun Denies wheezing Physical exam (Primary Care) Vital Signs: Last Vital Signs Temp 98.2 F 07/26/25 09:30 Pulse 57 07/26/25 09:30 Resp 12 07/26/25 09:30 BP 110/54 L 07/26/25 09:30 Pulse Ox 97 07/26/25 09:30 Oxygen Delivery Method Room Air 07/26/25 09:30 BMI result Body Mass Index 21.2 Tobacco/Smoking Status: Tobacco use Status Tobacco use date assessed 05/13/24 07/26/25 09:24 Patient Tobacco Use Status Current everyday Tobacco 07/26/25 09:24 Tobacco use type Cigarette 07/26/25 09:24 e-Cigarette/Vaping Use Never Used 07/26/25 09:24 Thrive Assessment: Date of Thrive Assessment Date Thrive assessed 11/24/24 07/26/25 09:24 Currently or been in a relationship where the following occur: No concerns reported Const General: well developed; No acute distress Nutritional Appearance: well nourished Orientation/consciousness: patient oriented x3 HENMT Head: Yes normocephalic and Yes atraumatic Eyes General: appearance normal, both eyes and all related structures Pupils: Equal, round and reactive pupils present EOM: EOMs intact bilaterally Resp Effort & Inspection: normal respiratory effort Auscultation: clear to auscultation bilaterally Cardio Rate: regular rate Rhythm: regular rhythm Heart sounds: S1 normal heart sound present, S2 normal heart sound present, no gallops, no murmurs and no rubs Neuro General: patient oriented x3 and gait normal Cranial nerves: Yes Equal, round and reactive pupils present Psych Affect: normal affect Coding Level of Care Code Est Pt Level 4 (07592) Diagnoses Essential hypertension I10 Chronic kidney disease N18.9 Abnormal urine cytology R82.89 Assessment & Plan Assessment & Plan (1) Essential hypertension: Code(s): I10 - Essential (primary) hypertension Category: Medical Plan: Blood pressure is controlled. Goal is less than 140/90 Continue current medication (2) Chronic kidney disease: Code(s): N18.9 - Chronic kidney disease, unspecified Category: Medical Plan: Creatinine has improved from 2.33 to 2.17 Continue good blood pressure control and avoid NSAIDs. Hydrate well. Follow-up with nephrology as recommended (3) Abnormal urine cytology: Code(s): R82.89 - Other abnormal findings on cytological and histological examination of urine Category: Medical Plan: History of smoking and abnormal urine cytology Had referred him to [facility] and patient had a poor experience during cystoscopy there so requested new referral. Had referred him to [facility] and they recommended a cystoscopy - patient did not proceed with this. He would like a [facility] to consult on his [facility]. Orders: Orders Hemoglobin A1c Today R73.01 - Impaired fasting glucose, R73.03 - Prediabetes Complete Blood Count Auto Diff Today D64.9 - Anemia, unspecified, Z00.00 - Encounter for general adult medical examination without abnormal findings Comprehensive Met. Panel Today N19 - Unspecified kidney failure Referrals Urology Referral R82.89 - Other abnormal findings on cytological and histological examination of urine
[2025-07-26 09:30] VITALS: BP 110/54; PULSE 57; RESP 12; TEMP 36.8; O2SAT 97; BMI 21.2
== END 2025-07-26 10:19 | disposition home or self-care (01) ==
LOC: HO.HMCFM 09:15
PROVIDERS: PCP Family Medicine; Visit Provider Family Medicine
DX: I12.9 Hypertensive chronic kidney disease with stage 1 through stage 4 chronic kidney disease, or unspecified chronic kidney disease (principal); N18.9 Chronic kidney disease, unspecified; R82.89 Other abnormal findings on cytological and histological examination of urine

== ENCOUNTER → 2025-07-26 09:14 | Outpatient (BNVA) | payer MEDICARE, SELFPAY | PROVIDERS: PCP Family Medicine; Visit Provider Family Medicine | DX: I12.9 Hypertensive chronic kidney disease with stage 1 through stage 4 chronic kidney disease, or unspecified chronic kidney disease (principal); N18.9 Chronic kidney disease, unspecified; R73.03 Prediabetes; R82.89 Other abnormal findings on cytological and histological examination of urine; D63.1 Anemia in chronic kidney disease | CPT/HCPCS: 99212 ==

== ENCOUNTER 2025-09-09 09:00 | Outpatient (REF) | payer MEDICARE, SELFPAY ==
--- NOTE | ~2025-09-09 | CT_ITS ---
EXAMINATION: CT LUNG SCREENING HISTORY: F17.210 - Nicotine dependence, cigarettes, uncomplicated TECHNIQUE: Low dose axial images were obtained from the sternal notch to upper abdomen without IV contrast per standard departmental protocol. Sagittal and coronal reformatted images were also obtained and reviewed. One or more of the following techniques was used for dose reduction: Automated exposure control, adjustment of the mA and/or kV according to patient size, use of iterative reconstruction technique. DLP: 65 mGy-cm COMPARISON: Comparison is made with the prior examination dated 09/02/2024. FINDINGS: Lung nodules: Again seen are scattered 2 mm nodules at the right lung apex (series 4, image 35), and more inferiorly in the right upper lobe (series 4, images 41 and 63). No suspicious pulmonary nodules are identified. Emphysema: moderate Coronary Calcification: severe Aortic Arch Calcification: moderate Potentially Significant Incidentals : none Additional Chest Findings: There is no pleural or pericardial effusion. No mediastinal or axillary lymphadenopathy is identified. Visualized upper abdomen: The visualized portions of the liver, spleen, and adrenals have an unremarkable unenhanced appearance. CT/CT lung screening IMPRESSION: No suspicious pulmonary nodules are identified. LUNG-RADS ASSESSMENT: Lung-RADS 2: Benign MANAGEMENT: Continue annual screening with LDCT in 12 months Category S: N/A Electronically signed by: Emmanuel Baxter MD 09/11/2025 09:17 AM [facility]
--- OUTSIDE RECORDS SUMMARY | 2025-09-09 09:04 | XMS_ITS | Clinical Summary ---
Author Organization [facility] Address [address] [phone] Phone Care Team Providers Care Field Tech Name Role Phone Jesus Argueta MD Primary Care Provider [phone] Allergies No known active allergies Medications atorvastatin [...] Sign Reading Time Taken Comments Blood Pressure 110/60 05/25/2025 1:00 PM EDT Pulse 54 05/25/2025 1:00 PM EDT Temperature - - Respiratory Rate - - Oxygen Saturation 97% 11/16/2023 1:18 PM EST Inhaled Oxygen Concentration - - Weight 70.8 kg (156 lb) 05/25/2025 1:00 PM EDT Height - - Body Mass Index - - Plan of Treatment Upcoming Encounters Date Type Department Care Team (Late st Contact Info) Description 11/23/2025 1:00 PM EST Office Visit [facility] [address] [phone] Nicholas Hester MD [address] [phone] Health Maintenance Due Date Last Done Comments Pneumococcal Vaccine: 50+ Ye ars (1 of 2 - PCV) 02/09/1971 Colorectal Cancer Screening: Annual FOBT 02/09/2001 Colorectal Cancer Screening: Colonoscopy 02/09/2001 Colorectal Cancer Screening: Sigmoidoscopy 02/09/2001 Influenza Vaccine (#1) 2025 Hepatitis B Vaccine Aged Out No longe r eligible based on patient's age to complete this topic Insurance [facility] Care Teams Field Tech Relationship Specialty Start Date End Date Jesus Argueta MD [address] [phone] PCP - General Family Medicine 07/30/22
== END 2025-09-09 09:01 | disposition home or self-care (01) ==
LOC: HO.CT 09:00
PROVIDERS: PCP Family Medicine; Visit Provider Physician Assistant Medical
DX: F17.210 Nicotine dependence, cigarettes, uncomplicated (principal)
CPT/HCPCS: 71271

== ENCOUNTER → 2025-09-09 09:02 | Outpatient (BNV) | payer MEDICARE, SELFPAY | PROVIDERS: PCP Family Medicine; Visit Provider Radiology Diagnostic Radiology | DX: Z12.2 Encounter for screening for malignant neoplasm of respiratory organs (principal); Z87.891 Personal history of nicotine dependence | CPT/HCPCS: 71271 ==